=== PATIENT | male | born 1965 | race Caucasian/White ===

== ENCOUNTER 2020-09-09 16:59 | Inpatient (IN) | payer OTHER, SELFPAY ==
[2020-09-09] VITALS (22 sets, daily range): BP systolic 107–126; BP diastolic 63–78; PULSE 69–91; RESP 17–41; TEMP 36.8–37.8; O2SAT 74–97; BMI 25.7
--- NOTE | 2020-09-09 18:03 | ECG_ITS ---
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 Measurements Intervals [place] Rate: 81 P: 34 SD: 154 QRS: -7 QRSD: 105 T: 22 QT: 367 QTc: 428 Interpretive Statements SINUS RHYTHM No previous ECG available for comparison Electronically Signed On 09-09-2020 18:22:52 DUPLICATE MAKER by Mane Mark M.D. [id number]
--- NOTE | 2020-09-09 18:03 | XRR_ITS ---
PROCEDURE INFORMATION: Exam: XR Chest, 1 View Exam date and time: 09/09/2020 6:38 PM Age: 54 years old Clinical indication: Cough; Additional info: Shortness of breath TECHNIQUE: Imaging protocol: XR of the chest Views: 1 view. COMPARISON: No relevant prior studies available. FINDINGS: Lungs: Mild nonspecific bilateral infiltrates. Pleural space: No pleural effusion. No pneumothorax. Heart/Mediastinum: No cardiomegaly. Bones/joints: Mild degenerative spine changes. XR/XR chest 1V portable [id number] IMPRESSION: Mild nonspecific bilateral infiltrates. Consider nonspecific pneumonia.
--- NOTE | 2020-09-09 18:03 | CTR_ITS ---
PROCEDURE INFORMATION: Exam: CT Angiography Chest With Contrast Exam date and time: 09/09/2020 7:05 PM Age: 54 years old Clinical indication: Dyspnea; Chest pain; Type not specified; Additional info: Pleuritic chest pain with SOB post covid TECHNIQUE: Imaging protocol: Computed tomographic angiography of the chest with intravenous contrast. 3D rendering (Not supervised by radiologist): MIP and/or 3D reconstructed images were created by the technologist. Radiation optimization: All CT scans at this facility use at least one of these dose optimization techniques: automated exposure control; mA and/or kV adjustment per patient size (includes targeted exams where dose is matched to clinical indication); or iterative reconstruction. Contrast material: OMNI 350; Contrast volume: 95 ml; Contrast route: INTRAVENOUS (IV); COMPARISON: CR XR chest 1V portable [id number] 09/09/2020 6:26 PM RADIATION DOSE METRICS: Total DLP (mGy-cm): 615.51 FINDINGS: Limitations: The study is limited due to patient respiratory motion. Pulmonary arteries: Pulmonary arteries are well opacified. Pulmonary arteries are normal in caliber. No filling defects are demonstrated. No evidence of pulmonary embolism. Aorta: Mild atherosclerosis of the aorta. No aortic aneurysm or dissection. Lungs: Diffuse bilateral ground-glass infiltrates. Areas of consolidation are seen in the posterior portions of the lower lobes. Pleural space: No pneumothorax. No pleural effusion. Heart: Mild cardiomegaly. No pericardial effusion. Lymph nodes: Unremarkable. No enlarged lymph nodes. Bones/joints: Mild degenerative thoracic spine changes. No fracture or other acute osseous abnormality. Mild degenerative spine changes. There is a 1.2 x 2.8 cm fat density right adrenal nodule, consistent with benign myelolipoma. The left adrenal gland is unremarkable. Soft tissues: Mild gynecomastia bilaterally. CT/CT angio chest PE protcl [id number] IMPRESSION: 1. The study is limited due to patient respiratory motion. 2. No evidence of pulmonary embolism. 3. No evidence of aortic dissection. 4. Diffuse bilateral ground-glass infiltrates. Areas of consolidation are seen in the posterior portions of the lower lobes. Commonly reported imaging features of COVID-19 pneumonia are present. Other processes such as influenza pneumonia and organizing pneumonia, as can be seen with drug toxicity and connective tissue disease, can cause a similar imaging pattern. (Reference: [place]) 5. Mild degenerative spine changes. There is a 1.2 x 2.8 cm fat density right adrenal nodule, consistent with benign myelolipoma. The left adrenal gland is unremarkable. REFERENCES: Burak Cordova, et al., Radiological Society of [place] Expert Consensus Statement on Reporting Chest CT Findings Related to COVID-19. Endorsed by the Society of Thoracic Radiology, the [place] [employer], and RSNA. Published December 02, 2019. Radiation Dose CTDIVOL = (mGy): DLP = 615.51 (mGy-cm)
[2020-09-09 18:38] LABS: Basophils % 0.2 %; Eosinophils % 0.1 %; Hematocrit 45.5 % (42.0-52.0); Hemoglobin 15.8 g/dL (11.7-16.6); Lymphocytes # 0.5 10^3/uL (0.8-4.8); Lymphocytes % 4.6 %; Mean Corpuscular HGB Conc 34.7 g/dL (30.0-36.0); Mean Corpuscular Hemoglobin 34.6 pg (28.0-34.0); Mean Corpuscular Volume 99.8 fL (80-94); Mean Platelet Volume 9.6 fL (7.4-10.4); Monocytes # 1.1 10^3/uL (0.2-0.9); Monocytes % 9.9 %; Neutrophils # 9.56 10^3/uL (1.8-7.7); Neutrophils % 84.1 %; Nucleated Red Blood Cells % 0.2 %; Platelet Count 184 10^3/cmm (130-400); Red Blood Count 4.56 10^6/uL (4.1-5.3); White Blood Count 11.4 10^3/uL (4.0-10.0)
[2020-09-09] MEDS: sodium chloride 0.9% 1,000 ML 999 ML IV (18:42)
[2020-09-09 18:46] LABS: INR 0.97 (0.8-1.2)
--- NOTE | 2020-09-09 18:47 | W.ED.SOB ---
HPI - SOB/Dyspnea General: Chief Complaint: Shortness of Breath/Dyspnea Stated Complaint: low o2/chest tightness Time Seen by Provider: 09/09/20 17:42 Source: patient and family Mode of arrival: ambulatory Limitations: no limitations History of Present Illness: HPI Narrative: 54-year-old male presents to the emergency room chief complaint of recent shortness of breath and dyspnea reports he just developed a fever recently reports that he has been out of quarantine for COVID-19 that he was diagnosed with on over 14 days ago. Patient was originally on steroids medications he never require any additional oxygen he reports moderate shortness of breath and mild chest discomfort recently. He reports no recent sick or ill contacts or any other associated symptoms. MD elicited complaint: shortness of breath and cough Context: recent illness Exacerbating factors: coughing Relieving factors: nothing Associated symptoms: Deny abdominal pain, chest pain, extremity pain, fever(s), nausea, palpitations or vomiting Related Data: Home oxygen amount: none Review of Systems General: Reports: 10 or more systems reviewed and unremarkable except in HPI and below Const: Reports: fatigue; Denies: fever(s), chills or malaise Eyes: Denies: change in vision or blurry vision Card: Denies: chest pain or palpitations Resp: Reports: dyspnea and non-productive cough; Denies: productive cough GI: Denies: abdominal pain, nausea or vomiting : Denies: flank pain Musc: Denies: extremity pain or extremity swelling Skin/Breast: Denies: rash or pruritus Neuro: Denies: headache(s) Psych: Denies: anxiety or depression Gerson/Lymph: Denies: easy bleeding All/Imm: Denies: urticaria, throat swelling or facial swelling Physical Exam Narrative: EXAM NARRATIVE: Patient appears mildly tachypneic however appears in no obvious acute distress. Patient does have a low-grade fever temperature of 100 ?F oxygen saturations currently 88% on nasal cannula at 5 L Const: COMMON NORMALS: patient oriented x3 and healthy appearing; apparent distress HENMT: COMMON NORMALS: normocephalic and atraumatic HEAD & SCALP: normocephalic and atraumatic Eye: COMMON NORMALS: Equal, round and reactive pupils present and EOMs intact bilaterally PUPIL: Yes Equal, round and reactive pupils present Neck/C-Spine: COMMON NORMALS: full ROM, supple and no JVD Lymph: LYMPHATIC: no lymphadenopathy noted Chest: COMMONS NORMALS: normal inspection of the chest and normal palpation of entire chest wall Resp: COMMON NORMALS: normal respiratory effort, No retractions and clear to auscultation bilaterally (Reduced breath sounds appreciated bilaterally no obvious wheeze apparent) EFFORT & INSPECTION: Yes able to speak in complete sentences, Yes symmetric chest movement and Yes decreased respiratory effort AUSCULTATION: clear to auscultation bilaterally (Reduced breath sounds appreciated bilaterally no obvious wheeze apparent) and diminished lung sounds (Diminished breath sounds appreciated bilaterally no obvious wheezing crackl) Cardio: COMMON NORMALS: no JVD, regular rate and regular rhythm RATE: regular rate RHYTHM: regular rhythm GI: COMMON NORMALS: Normal to inspection, nondistended, normoactive bowel sounds present, Soft to palpation and non-tender INSPECTION: Yes normal to inspection AUSCULTATION: Yes normoactive bowel sounds PALPATION: Yes Soft to palpation : COMMON NORMALS: Yes no CVA tenderness BLADDER/KIDNEY EXAM: Yes no CVA tenderness Back/Pelvis: COMMON NORMALS: no CVA tenderness THORACIC SPINE/UPPER BACK: Yes normal to inspection Extremity: COMMON NORMALS: normal to inspection, full ROM and capillary refill normal Neuro: COMMON NORMALS: patient oriented x3, CN's II-XII intact bilaterally, moves all extremities and no focal motor deficits Psych: COMMON NORMALS: mental status grossly normal, Normal thought process present, cooperative, normal affect and speech normal SPEECH: Yes normal speech THOUGHT PROCESS: Normal thought process present Skin: COMMON NORMALS: no rashes or lesions noted GENERAL SKIN EXAM: no rashes or lesions noted Course Vital Signs: Vital signs: Vital Signs Temperature 100.0 F H 09/09/20 17:13 Pulse Rate 88 09/09/20 20:33 Respiratory Rate 31 H 09/09/20 20:33 Blood Pressure 116/77 09/09/20 20:33 Pulse Oximetry 95 09/09/20 20:33 MDM - SOB/Dyspnea MDM Narrative: Medical decision making narrative: Due to the patient's symptoms and condition lab work and imaging was obtained patient has hypoxic requiring 5 L via nasal cannula underlying concerns of post Covid pneumonia versus pulmonary embolism are prominent we provide the patient steroids and additional medications for her symptoms will continue to follow. Patient CTA came back as negative for any obvious underlying clots patient was found to have bibasilar infiltrates which revealing that the patient still has continued Covid pneumonia midway through management patient did have a significant O2 saturation depreciation after coughing episode spoke to Dr. morrison on for the hospitalist services granted acceptance of the patient. Lab Data: Labs: Lab Results 09/09/20 09/09/20 09/09/20 Range/Units 18:10 18:10 18:10 WBC 11.4 H (4.0-10.0) 10^3/ uL RBC 4.56 (4.1-5.3) 10^6/u L Hgb 15.8 (11.7-16.6) g/dL Hct 45.5 (42.0-52.0) % MCV 99.8 H (80-94) fL MCH 34.6 H (28.0-34.0) pg MCHC 34.7 (30.0-36.0) g/dL RDW 12.0 L (12.1-15.1) % Plt Count 184 (130-400) 10^3/c mm MPV 9.6 (7.4-10.4) fL Neut % (Auto) 84.1 % Lymph % (Auto) 4.6 % Anson % (Auto) 9.9 % Eos % (Auto) 0.1 % Baso % (Auto) 0.2 % Neut # (Auto) 9.56 H (1.8-7.7) 10^3/u L Lymph # (Auto) 0.5 L (0.8-4.8) 10^3/u L Anson # (Auto) 1.1 H (0.2-0.9) 10^3/u L Eos # (Auto) 0.0 (0.0-0.8) 10^3/u L Baso # (Auto) 0.0 (0.0-0.1) 10^3/u L Nucleated RBC % (a uto) 0.2 % Nucleated RBCs # 0.0 /100WBC PT 13.20 (12.1-14.9) SECO NDS INR 0.97 (0.8-1.2) Specimen Type Sample Site ABG pH (7.35-7.45) ABG pCO2 (35-45) mmHg ABG pO2 (80.0-100.0) mmH g ABG HCO3 (22-26) mmol/L ABG Base Excess (-2.0-2.0) mmol/ L Nacho Test Hematocrit (42-52) % O2 Delivery Device O2 Liters/Min % Senior C Software Developer ID Sodium 124 L (136-145) mmol/L Potassium 3.7 (3.5-5.1) mmol/L Chloride 89 L (98-107) mmol/L Carbon Dioxide 24 (22-29) mmol/L Anion Gap 14.7 (5-19) BUN 6 (6-20) mg/dL Creatinine 0.5 L (0.7-1.2) mg/dL GFR Calculation 173.3 H (90-130) mL/min Glucose 128 H (65-115) mg/dL Calculated Osmolal ity 257 L (285-295) mOsm/k g Calcium 8.3 L (8.5-10.5) mg/dL Total Bilirubin 0.6 (0.15-1.2) mg/dL AST 35 (0-40) U/L ALT 33 (0-41) U/L Alkaline Phosphata se 112 (40-130) IU/L Troponin T Gen 5 n g/L (0-15) ng/L NT-Pro-B Natriuret Pep 43 (0-125) pg/mL Total Protein 6.3 L (6.6-8.7) g/dL Albumin 3.1 L (3.5-5.2) g/dL Globulin 3.2 (1.3-4.6) g/dL 09/09/20 09/09/20 Range/Units 18:10 19:36 WBC (4.0-10.0) 10^3/ uL RBC (4.1-5.3) 10^6/u L Hgb (11.7-16.6) g/dL Hct (42.0-52.0) % MCV (80-94) fL MCH (28.0-34.0) pg MCHC (30.0-36.0) g/dL RDW (12.1-15.1) % Plt Count (130-400) 10^3/c mm MPV (7.4-10.4) fL Neut % (Auto) % Lymph % (Auto) % Anson % (Auto) % Eos % (Auto) % Baso % (Auto) % Neut # (Auto) (1.8-7.7) 10^3/u L Lymph # (Auto) (0.8-4.8) 10^3/u L Anson # (Auto) (0.2-0.9) 10^3/u L Eos # (Auto) (0.0-0.8) 10^3/u L Baso # (Auto) (0.0-0.1) 10^3/u L Nucleated RBC % (a uto) % Nucleated RBCs # /100WBC PT (12.1-14.9) SECO NDS INR (0.8-1.2) Specimen Type Arterial Sample Site Radial, right ABG pH 7.48 H (7.35-7.45) ABG pCO2 31.4 L (35-45) mmHg ABG pO2 51.7 L (80.0-100.0) mmH g ABG HCO3 23.6 (22-26) mmol/L ABG Base Excess 1.0 (-2.0-2.0) mmol/ L Nacho Test Pos Hematocrit 47.0 (42-52) % O2 Delivery Device Nrb O2 Liters/Min 15.0 % Senior C Software Developer ID Jlg Sodium (136-145) mmol/L Potassium (3.5-5.1) mmol/L Chloride (98-107) mmol/L Carbon Dioxide (22-29) mmol/L Anion Gap (5-19) BUN (6-20) mg/dL Creatinine (0.7-1.2) mg/dL GFR Calculation (90-130) mL/min Glucose (65-115) mg/dL Calculated Osmolal ity (285-295) mOsm/k g Calcium (8.5-10.5) mg/dL Total Bilirubin (0.15-1.2) mg/dL AST (0-40) U/L ALT (0-41) U/L Alkaline Phosphata se (40-130) IU/L Troponin T Gen 5 n g/L 6 (0-15) ng/L NT-Pro-B Natriuret Pep (0-125) pg/mL Total Protein (6.6-8.7) g/dL Albumin (3.5-5.2) g/dL Globulin (1.3-4.6) g/dL EKG Data^: EKG 1: Attestation: I personally reviewed and interpreted this EKG as follows: (Normal sinus rhythm rate of [address] segment elevations or depressions appreciated.) EKG Interpretation Date: 09/09/20 EKG interpretation time: 18:51 Prior EKG tracings: not available for review Discharge Plan Discharge Patient Disposition: Admitted As Inpatient Clinical Impression: 2019 novel coronavirus–infected pneumonia (NCIP)#8211;infected pneumonia (NCIP), Acute respiratory failure with hypoxia Condition: Stable Referrals: Zavala,SHERRON Bradley [Primary Care Provider] - Coding Level of Care Code ED Surface Water Technician for Chg Fwd Exam Comprehensive
[2020-09-09 19:16] LABS: Troponin T (5th) Once 6 ng/L (0-15)
[2020-09-09 19:24] LABS: Alanine Aminotransferase 33 U/L (0-41); Albumin Level 3.1 g/dL (3.5-5.2); Alkaline Phosphatase 112 IU/L (40-130); Anion Gap 14.7 (5-19); Aspartate Amino Transferase 35 U/L (0-40); Blood Urea Nitrogen 6 mg/dL (6-20); Calcium 8.3 mg/dL (8.5-10.5); Carbon Dioxide 24 mmol/L (22-29); Chloride 89 mmol/L (98-107); Globulin 3.2 g/dL (1.3-4.6); Glomerular Filtration Rate 173.3 mL/min (90-130); Glucose 128 mg/dL (65-115); NT Pro B Type Natriuretic Pept 43 pg/mL (0-125); Osmolality Calculated 257 mOsm/kg (285-295); Potassium 3.7 mmol/L (3.5-5.1); Sodium 124 mmol/L (136-145); Total Bilirubin 0.6 mg/dL (0.15-1.2); Total Protein 6.3 g/dL (6.6-8.7)
[2020-09-09] MEDS: iohexol 350 mg/mL 100 mL Btl IV (19:26)
[2020-09-09] MEDS: ipratropium-albuterol 3 mL Neb INHALATION (19:30)
[2020-09-09 19:49] LABS: ABG PCO2 31.4 mmHg (35-45); ABG PH Result 7.48 (7.35-7.45); Blood Gas Allen Test Pos; Blood Gas Sample Site Radial, right; Blood Gas Sample Type Arterial; HCO3 ABG 23.6 mmol/L (22-26); Oxygen Device NRB; PO2 ABG 51.7 mmHg (80.0-100.0)
--- NOTE | 2020-09-09 20:41 | PM.HP ---
Providers/Chief Complaint Primary Care Provider: Mirna Zavala APN Chief Complaint: low o2/chest tightness History of Present Illness Juan Carlos Ponce is a 54 year old male who does not have significant past medical history presented today with chief complaint of worsening shortness of breath. Patient contracted COVID-19 pneumonia on 08/20, was treated with steroids only at home, his symptoms started getting worse in last few days, now he is getting more short of breath, his O2 saturation was normal 2 weeks ago and now below 90% at home, he has not required any oxygenation until today, he is also experiencing diarrhea 3-4 episodes a day, no active chest pain, he is bringing clear sputum with his cough, no orthopnea, PND, leg swelling. His PCP prescribed Levaquin, he has taken 3 doses so far. His symptoms were not improving hence he decided to come to the ED for further evaluation. There is gradual worsening of his symptoms no particular relieving or aggravating factors identified by the patient. He is a non-smoker. He drinks 10 to 12 cans of beer almost daily basis Diagnosis in the ER revealed sepsis I have requested procalcitonin level and D-dimer CTA was requested which came back negative for PE however showing groundglass opacities Patient is currently requiring 15 L nonrebreather mask saturating 95% No acute respiratory distress Sepsis, ABG reveals respiratory alkalosis with hypoxia on 15 L nonrebreather, I have requested transfer therapist to start high flow BMP remarkable for hyponatremia however no neurological signs I reviewed chest CT scan, bilateral interstitial infiltrates, reticular nodular pattern Review of Systems Const: Reports: fever(s), chills, body aches, change in appetite, fatigue and malaise Eyes: Denies: change in vision ENMT: Denies: throat pain Card: Reports: dyspnea on exertion; Denies: chest pain, irregular heart rhythm, swelling of feet/ankles, syncope or leg pain with exertion Resp: Reports: dyspnea and productive cough GI: Reports: diarrhea : Denies: flank pain Musc: Denies: neck pain Skin/Breast: Denies: rash Neuro: Denies: headache(s) Psych: Denies: anxiety Endo: Denies: polyuria Gerson/Lymph: Denies: easy bruising All/Imm: Denies: urticaria Medications/Allergies Home Medications Medication Instructions Recorded Confirmed Last Taken Type lisinopril 20 mg PO DAILY 09/09/20 09/09/20 Unknown History metoprolol succinate 50 mg PO DAILY 09/09/20 09/09/20 Unknown History PFSH Acute PFSH: Medical History (Updated 09/09/20 @ 21:30 by Best Zamarripa MD) Hypertension Normal colonoscopy Surgical History (Updated 09/09/20 @ 21:23 by Best Zamarripa MD) History of incision and drainage Gluteal abscess Family History (Updated 09/09/20 @ 21:23 by Best Zamarripa MD) Father Cancer Multiple myeloma Social History (Updated 09/09/20 @ 21:23 by Best Zamarripa MD) Smoking and tobacco status: never smoked Alcohol intake: current Alcohol intake frequency: 3 or more drinks per day Alcohol type: beer Substance/Drug Use: never Household members: spouse Housing: House Marital status: Vitals/I&O/Wt Last Vital Signs Temp 100.0 F H 09/09/20 17:13 Pulse 88 09/09/20 20:33 Resp 31 H 09/09/20 20:33 BP 116/77 09/09/20 20:33 Pulse Ox 95 09/09/20 20:33 Weight last 48 hrs Weight 83.915 kg Physical Exam Narrative: EXAM NARRATIVE: This is a very pleasant middle-age male Currently requiring 15 L nonrebreather mask for oxygenation to keep saturation above 94% No acute respiratory distress No active chest pain Sitting comfortably in semi-Fermin position S1, S2 no murmur appreciated no signs of heart failure, mild signs of dehydration Bilateral breath sounds with biphasic crepitations, no active wheezing Lower extremity no edema gangrene ulcer Multiple petechial rash noted on extremities and on abdomen, no rash on his palms No signs of meningitis no skin rash on face Abdomen soft nontender bowel sound present no acute signs of peritonitis No neurological deficit GCS 15 alert oriented x3 No active joint pains or swelling Data : 09/09/20 18:10 09/09/20 18:10 A&P Assessment and plan (1) 2019 novel coronavirus–infected pneumonia (NCIP)#8211;infected pneumonia (NCIP): Status: Acute (2) Sepsis: Status: Acute (3) Acute respiratory failure with hypoxia: Status: Acute (4) Hyponatremia: Status: Acute Additional A&P Information Sepsis secondary to COVID-19 pneumonia Criteria met with low-grade temperature, tachypnea, leukocytosis I have requested procalcitonin level, will hold off on antibiotics until then, he has taken 2 dose of Levaquin at home We will start him on Decadron and remdesivir Ventolin Currently requiring 15 L nonrebreather mask will escalate to humidified high flow Acute hypoxic respiratory failure Currently requiring 15 L nonrebreather mask Bilateral groundglass opacities with reticular nodular pattern This is consistent with COVID-19 pneumonia, no dense consolidation seen, awaiting procalcitonin level, CTA rule out PE Diarrhea Most likely secondary to COVID-19 however he has also taken Levaquin, will rule out C. difficile, he had more than 3 episodes today Hyponatremia No acute neurological signs or symptoms Will obtain serum and urine osmolarity, uric acid, TSH Clinically patient looks mildly dehydrated, he has been having diarrhea as well, but not showing signs of contraction alkalosis however sodium and potassium are both low I would add normal saline at 75 cc/h Full code Cardiac diet DVT prophylaxis Lovenox Attestations Medical Necessity Statement*: Anticipating stay in the hospital course more than 2 midnights currently requiring 15 L of oxygen via nonrebreather mask, septic with COVID-19 pneumonia Time Spent in Patient Care: (>than 50% of time spent in counselling and/or direct pt care on unit). 45mins Coding Level of Care Code Acute Network Operations Manager for [employer] Davalos Diagnoses 2019 novel coronavirus–infected pneumonia (NCIP)#8211;infected pneumonia (NCIP) U07.1; J12.89 Sepsis A41.9 Acute respiratory failure with hypoxia J96.01 Hyponatremia E87.1
[2020-09-09 21:55] LABS: Procalcitonin 0.24 ng/mL (0-0.5)
[2020-09-09 22:08] LABS: D Dimer 3.78 ug/mIFEU (0-0.59)
[2020-09-09 22:11] LABS: Uric Acid 3.1 mg/dL (3.4-7.0)
[2020-09-09 22:20] LABS: Thyroid Stimulating Hormone 4.42 uIU/mL (0.27-4.20)
--- NOTE | 2020-09-09 22:30 | PC.NURSE ---
Patient arrived to room via stretcher from ED. A&O X 4 Respiratory with patient to set up heated high flow. No skin issues noted and patient has Patent IV site to R Forearm with brisk blood return. Lungs diminished all jack. Patient able to ambulate in room with minimal desaturation. first dose of remdesivir administered. Will continue to monitor and assist patient as needed following CPOC
[2020-09-10] VITALS (36 sets, daily range): BP systolic 95–128; BP diastolic 59–81; PULSE 61–93; RESP 16–34; TEMP 36.5–37; O2SAT 88–97
[2020-09-10] MEDS: remdesivir 200 MG in sodium chloride 0.9% (100 ml) 100 ML 100 MG IV (02:09)
[2020-09-10] MEDS: acetaminophen 500 mg Tablet PO (02:12)
[2020-09-10 04:21] LABS: ABG PH Result 7.49 (7.35-7.45); Arterial Blood Gas Hematocrit 47.8 % (42-52); Base Excess ABG 0.6 mmol/L (-2.0-2.0); Blood Gas Allen Test Pos; Blood Gas Sample Site Radial, right; Blood Gas Sample Type Arterial; HCO3 ABG 22.9 mmol/L (22-26); Oxygen Device NC; PO2 ABG 89.4 mmHg (80.0-100.0)
[2020-09-10 06:55] LABS: Basophils % 0.4 %; Hematocrit 43.7 % (42.0-52.0); Lymphocytes # 0.4 10^3/uL (0.8-4.8); Lymphocytes % 6.6 %; Mean Corpuscular HGB Conc 34.3 g/dL (30.0-36.0); Mean Corpuscular Hemoglobin 34.8 pg (28.0-34.0); Mean Corpuscular Volume 101.4 fL (80-94); Mean Platelet Volume 9.9 fL (7.4-10.4); Monocytes # 0.2 10^3/uL (0.2-0.9); Monocytes % 4.3 %; Neutrophils % 87.8 %; Nucleated Red Blood Cells % 0 %; Platelet Count 190 10^3/cmm (130-400); Red Blood Count 4.31 10^6/uL (4.1-5.3); Red Cell Distribution Width 11.9 % (12.1-15.1); White Blood Count 5.6 10^3/uL (4.0-10.0)
[2020-09-10 07:07] LABS: Fibrinogen 857 mg/dL (174-498)
[2020-09-10 07:08] LABS: Blood Urea Nitrogen 7 mg/dL (6-20); Calcium 8.1 mg/dL (8.5-10.5); Carbon Dioxide 22 mmol/L (22-29); Chloride 92 mmol/L (98-107); Glomerular Filtration Rate 224.2 mL/min (90-130); Glucose 205 mg/dL (65-115); Osmolality Calculated 266 mOsm/kg (285-295); Sodium 126 mmol/L (136-145)
[2020-09-10 07:26] LABS: Anion Gap 15.8 (5-19); Potassium 3.8 mmol/L (3.5-5.1)
--- NOTE | 2020-09-10 07:47 | PC.NURSE ---
Report called to RN on VICU to transfer patient this am. Patient in stable condition with oxymask and 15 L Patient left room with floor staff via wheelchair to VICU room 2
--- NOTE | 2020-09-10 09:09 | XRR_ITS ---
PROCEDURE INFORMATION: Exam: XR Chest, 1 View Exam date and time: 09/10/2020 9:35 AM Age: 54 years old Clinical indication: Shortness of breath; Additional info: Post intubation TECHNIQUE: Imaging protocol: XR of the chest Views: 1 view. COMPARISON: CR XR chest 1V portable [id number] 09/09/2020 6:26 PM FINDINGS: Lungs: Bilateral hazy interstitial infiltrates are present which have not significantly changed since previous study. This could be due to a interstitial pneumonia possibly viral in nature. Pleural space: Unremarkable. No pleural effusion. No pneumothorax. Heart/Mediastinum: Unremarkable. No cardiomegaly. Bones/joints: Unremarkable. XR/XR chest 1V portable [id number] IMPRESSION: No significant change in the bilateral interstitial pulmonary infiltrates.
[2020-09-10] MEDS: azithromycin 500 MG in sodium chloride 0.9% 250 ML 250 MG IV (10:00)
[2020-09-10] MEDS: cefTRIAXone 1,000 MG in sodium chloride 0.9% (plus) 50 ML 100 MG IV (10:01)
[2020-09-10] MEDS: apixaban 5 mg Tablet 2.5 MG PO ×2 (10:26→18:05)
[2020-09-10] MEDS: folic acid 1 mg Tablet PO (10:26)
[2020-09-10] MEDS: multivitamin therapeutic Tablet 1 TAB PO (10:26)
[2020-09-10] MEDS: lisinopril 20 mg Tablet PO (10:26)
[2020-09-10] MEDS: metoprolol succinate ER (24 HR) 50 mg Tablet PO (10:26)
[2020-09-10] MEDS: dexamethasone 4 mg Tablet 6 MG PO (10:27)
[2020-09-10] MEDS: remdesivir 100 MG in sodium chloride 0.9% (100 ml) 100 ML IV (18:05)
--- NOTE | 2020-09-10 19:00 | PC.NURSE ---
Report received, care assumed. Monitor alarms, plan of care et previous orders reviewed. Please see physical assessment et vital sign flow sheets for details. Patient currently resting in bed comfortably. Patient is alert et able to participate in exam et answer all orientation questions without any issues.
--- NOTE | 2020-09-10 21:26 | PM.PN ---
Subjective Subjective: Interval history: 54 year old male who does not have significant past medical history presented today with chief complaint of worsening shortness of breath. Patient contracted COVID-19 pneumonia on 08/20, was treated with steroids only at home, his symptoms started getting worse in last few days, now he is getting more short of breath, his O2 saturation was normal 2 weeks ago and now below 90% at home, he has not required any oxygenation until today, he is also experiencing diarrhea 3-4 episodes a day, no active chest pain, he is bringing clear sputum with his cough, no orthopnea, PND, leg swelling. His PCP prescribed Levaquin, he has taken 3 doses so far. His symptoms were not improving hence he decided to come to the ED for further evaluation. There is gradual worsening of his symptoms no particular relieving or aggravating factors identified by the patient. He is a non-smoker. He drinks 10 to 12 cans of beer almost daily basis CTA was requested which came back negative for PE however showing groundglass opacities Patient was initially requiring 15 L nonrebreather mask saturating 95% however later transitioned to HFNC. Transferred to VICU. Subjective 09/10/20 Patient is stable on HFNC. Respiratory distress with exertion. No fever, chills, nausea or vomiting. Vitals/I&O/Wt Last Vital Signs Temp 97.8 F 09/10/20 15:00 Pulse 93 09/10/20 19:00 Resp 25 H 09/10/20 19:00 BP 114/74 09/10/20 19:00 Pulse Ox 96 09/10/20 19:00 09/10/20 09/10/20 09/10/20 06:59 14:59 22:59 Intake Total 480 / 480 600 / 600 300 / 900 Balance 480 / 480 600 / 600 300 / 900 Weight last 48 hrs Weight 83.915 kg Physical Exam Narrative: EXAM NARRATIVE: General : Alert, awake, HFNC HEENT : S1, S2 no murmur appreciated no signs of heart failure, mild signs of dehydration Chest : Bilateral breath sounds with biphasic crepitations, no active wheezing Abdomen soft nontender bowel sound present no acute signs of peritonitis No neurological deficit GCS 15 alert oriented x3 No active joint pains or swelling Data : 09/10/20 05:35 09/10/20 05:35 Micro: Microbiology 09/09/20 20:59 Blood Culture - Preliminary Blood NEGATIVE TO DATE 09/09/20 21:00 Blood Culture - Preliminary Blood NEGATIVE TO DATE A&P Assessment and plan (1) 2019 novel coronavirus–infected pneumonia (NCIP)#8211;infected pneumonia (NCIP): Status: Acute (2) Sepsis: Status: Acute (3) Acute respiratory failure with hypoxia: Status: Acute (4) Hyponatremia: Status: Acute Additional A&P Information Acute hypoxic respiratory failure with Sepsis secondary to COVID-19 pneumonia - Remdesivir - Decadron - Inflammatory labs in AM - Albuterol MDI - Wean Fio2 - Chest x-ray Diarrhea - Improving - Follow up on c-diff Hyponatremia - BMP in AM - Cautious IVF Full code Cardiac diet DVT prophylaxis Lovenox Attestations Medical Necessity Statement*: Will continue hospitalization for management of sepsis due to covid-19 pneumonia Time Spent in Patient Care: Greater than 35 minutes (>than 50% of time spent in counselling and/or direct pt care on unit). 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
[2020-09-10] MEDS: LORazepam 2 mg Tablet PO (21:38)
[2020-09-11] VITALS (36 sets, daily range): BP systolic 82–131; BP diastolic 53–87; PULSE 45–99; RESP 13–49; TEMP 36.6–36.9; O2SAT 78–96
[2020-09-11] MEDS: LORazepam 2 mg Tablet PO ×2 (00:28→04:32)
[2020-09-11] MEDS: LORazepam 2 mg/mL INJ 1 mL IM (02:17)
--- NOTE | 2020-09-11 02:32 | PC.NURSE ---
Patient having increased symptoms of alcohol withdrawal such as muscle tremors, sweating, et both auditory et visual hallucinations. Called Dr. Zamarripa to to update on patient's worsening symptoms. New orders noted et implemented. Will continue to monitor.
[2020-09-11] MEDS: LORazepam 2 mg/mL INJ 1 mL IVP ×2 (04:33→07:38)
[2020-09-11 05:14] LABS: Basophils % 0.3 %; Hematocrit 41.8 % (42.0-52.0); Hemoglobin 14.1 g/dL (11.7-16.6); Lymphocytes # 0.8 10^3/uL (0.8-4.8); Lymphocytes % 4.8 %; Mean Corpuscular HGB Conc 33.7 g/dL (30.0-36.0); Mean Corpuscular Hemoglobin 34.9 pg (28.0-34.0); Mean Corpuscular Volume 103.5 fL (80-94); Mean Platelet Volume 9.3 fL (7.4-10.4); Monocytes # 1.4 10^3/uL (0.2-0.9); Monocytes % 8.9 %; Neutrophils # 13.41 10^3/uL (1.8-7.7); Neutrophils % 85.2 %; Nucleated Red Blood Cells % 0 %; Platelet Count 205 10^3/cmm (130-400); Red Blood Count 4.04 10^6/uL (4.1-5.3); Red Cell Distribution Width 11.9 % (12.1-15.1); White Blood Count 15.7 10^3/uL (4.0-10.0)
[2020-09-11 05:33] LABS: Lactate (Lactic Acid level) 1.7 mmol/L (0.5-2.2)
[2020-09-11 05:54] LABS: Procalcitonin 0.13 ng/mL (0-0.5)
[2020-09-11 06:02] LABS: D Dimer 2.43 ug/mIFEU (0-0.59)
[2020-09-11 06:05] LABS: Alanine Aminotransferase 52 U/L (0-41); Albumin Level 2.7 g/dL (3.5-5.2); Alkaline Phosphatase 83 IU/L (40-130); Blood Urea Nitrogen 12 mg/dL (6-20); Calcium 8.4 mg/dL (8.5-10.5); Carbon Dioxide 24 mmol/L (22-29); Chloride 94 mmol/L (98-107); Globulin 3.6 g/dL (1.3-4.6); Glomerular Filtration Rate 173.3 mL/min (90-130); Glucose 112 mg/dL (65-115); Osmolality Calculated 271 mOsm/kg (285-295); Sodium 130 mmol/L (136-145); Total Bilirubin 0.5 mg/dL (0.15-1.2); Total Protein 6.3 g/dL (6.6-8.7)
[2020-09-11 06:11] LABS: Anion Gap 16.1 (5-19); Aspartate Amino Transferase 59 U/L (0-40); Potassium 4.1 mmol/L (3.5-5.1)
[2020-09-11 06:28] LABS: Ferritin 4788 ng/mL (30-400)
[2020-09-11] MEDS: cefTRIAXone 1,000 MG in sodium chloride 0.9% (plus) 50 ML 100 MG IV (09:45)
[2020-09-11] MEDS: azithromycin 500 MG in sodium chloride 0.9% 250 ML 250 MG IV (09:46)
[2020-09-11] MEDS: dexamethasone 4 mg Tablet 6 MG PO (09:49)
[2020-09-11] MEDS: folic acid 1 mg Tablet PO (10:11)
[2020-09-11] MEDS: apixaban 5 mg Tablet 2.5 MG PO ×2 (10:11→17:30)
[2020-09-11] MEDS: multivitamin therapeutic Tablet 1 TAB PO (10:12)
[2020-09-11] MEDS: thiamine 100 mg Tablet PO (10:13)
--- NOTE | 2020-09-11 11:18 | PM.PN ---
Subjective Subjective: Interval history: 54 year old male who does not have significant past medical history presented today with chief complaint of worsening shortness of breath. Patient contracted COVID-19 pneumonia on 08/20, was treated with steroids only at home, his symptoms started getting worse in last few days, now he is getting more short of breath, his O2 saturation was normal 2 weeks ago and now below 90% at home, he has not required any oxygenation until today, he is also experiencing diarrhea 3-4 episodes a day, no active chest pain, he is bringing clear sputum with his cough, no orthopnea, PND, leg swelling. His PCP prescribed Levaquin, he has taken 3 doses so far. His symptoms were not improving hence he decided to come to the ED for further evaluation. There is gradual worsening of his symptoms no particular relieving or aggravating factors identified by the patient. He is a non-smoker. He drinks 10 to 12 cans of beer almost daily basis CTA was requested which came back negative for PE however showing groundglass opacities Patient was initially requiring 15 L nonrebreather mask saturating 95% however later transitioned to HFNC. Transferred to VICU. Subjective 09/10/20 Patient is stable on HFNC. Respiratory distress with exertion. No fever, chills, nausea or vomiting. 09/11/20 Intubated on MV Vitals/I&O/Wt Last Vital Signs Temp 98 F 09/11/20 04:00 Pulse 61 09/11/20 20:06 Resp 20 H 09/11/20 20:06 BP 100/65 09/11/20 15:00 Pulse Ox 90 09/11/20 20:06 09/11/20 09/11/20 09/11/20 06:59 14:59 22:59 Intake Total 250 / 250 181.000 / 431.000 Balance 250 / 250 181.000 / 431.000 Physical Exam Narrative: EXAM NARRATIVE: General : Intubated on vent HEENT ; ET tube CVS: S1, S2 no murmur appreciated no signs of heart failure, mild signs of dehydration Chest : Bilateral breath sounds with biphasic crepitations, no active wheezing Abdomen soft nontender bowel sound present no acute signs of peritonitis Urinary Catheter Management^: Guerra: Cath Placed During This Visit: yes Reason for Continuing Indwelling Catheter: Accurate Measurement of Urinary Output in Critically Ill Patients Urinary Catheter Date of Insertion: 09/11/20 Urinary Catheter Time of Insertion: 12:40 Data : 09/11/20 05:00 09/11/20 05:00 Micro: Microbiology 09/11/20 12:17 Gram Stain - Final Sputum - Endotracheal Tube Aspirate 09/09/20 20:59 Blood Culture - Preliminary Blood NEGATIVE TO DATE 09/09/20 21:00 Blood Culture - Preliminary Blood NEGATIVE TO DATE A&P Assessment and plan (1) 2018 novel coronavirus–infected pneumonia (NCIP)#8211;infected pneumonia (NCIP): Status: Acute (2) Sepsis: Status: Acute (3) Acute respiratory failure with hypoxia: Status: Acute (4) Hyponatremia: Status: Acute Additional A&P Information Acute hypoxic respiratory failure with Sepsis secondary to COVID-19 pneumonia - Intubated on MV - ABG in am - Remdesivir - Decadron - Inflammatory labs in AM - Albuterol MDI - emperically on abx - Wean Fio2 - Chest x-ray Diarrhea - Improving - Follow up on c-diff Hyponatremia - BMP in AM - Cautious IVF Full code Cardiac diet DVT prophylaxis Lovenox Attestations Medical Necessity Statement*: critical condition continue hospitalization Time Spent in Patient Care: Greater than 35 minutes (>than 50% of time spent in counselling and/or direct pt care on unit). 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
--- NOTE | 2020-09-11 11:33 | XRR_ITS ---
PROCEDURE INFORMATION: Exam: XR Chest, 1 View Exam date and time: 09/11/2020 11:56 AM Age: 54 years old Clinical indication: Device placement; Ett placement (vent status); Additional info: Intubation TECHNIQUE: Imaging protocol: XR of the chest Views: 1 view. COMPARISON: CR (CHEST, ) 09/10/2020 9:19 AM FINDINGS: Tubes, catheters and devices: An endotracheal tube is present with its tip about 2.5 cm above the conor. An orogastric tube extends down to the projection of the stomach. Lungs: There are extensive bilateral interstitial pulmonary infiltrates that have worsened since 09/10/2020. This is consistent with an interstitial pneumonia probably viral in nature. Pleural space: Unremarkable. No pleural effusion. No pneumothorax. Heart/Mediastinum: Unremarkable. No cardiomegaly. Bones/joints: Unremarkable. XR/XR chest 1V portable [id number] IMPRESSION: 1. The tip of the endotracheal tube is about 2.5 cm above the conro. 2. The orogastric tube descends to the stomach. 3. Worsening bilateral interstitial pulmonary infiltrates.
[2020-09-11] MEDS: propofol 1,000 MG/100 ML INJ 17.6 MG IV (11:45)
[2020-09-11] MEDS: succinylcholine 20 mg/mL SDV 10mL 100 MG IVP (12:03)
[2020-09-11] MEDS: dexmedetomidine 400 MCG in sodium chloride 0.9% (100 ml) 100 ML IV (12:20)
--- NOTE | 2020-09-11 12:53 | PC.NURSE ---
Intubation Doctor informed this nurse of worsening symptoms and was told he was intubating patient. was informed and she gave verbal consent for procedure. Sedatives and paralytics were given per orders at 1130. 8.0 tube was used and tube is at 25 at the lip. Positive color change and bilateral breath sounds were noted. OG and Guerra were placed per orders. Patient tolerated well
--- NOTE | 2020-09-11 13:05 | P.PCN_ITS ---
Procedure/Consent Time out: Time Out Performed: Yes Consent: Consent for Procedure: Consent obtained from other (indicate) (Patients ), Risks & Benefits reviewed and Agrees to proceed with procedure Acute Procedures Epistaxis Control: Time out performed: Yes Intubation: Time out performed: Yes Sedative: etomidate Mg given: 20 Paralytic: succinylcholine Mg given: 100 Laryngoscope: fiber optic video scope Assist device used: fiber optic device ET tube size: 8 ET tube uncuffed: Yes Tube secured depth (cm): 25 Tube secured location: teeth Tube placement confirmation: visualized tube passing through cords, equal breath sounds bilaterally, no breath sounds over epigastrium, confirmation by capnometry and color change noted Patient tolerated procedure: well I ntubation complications: none
[2020-09-11 13:31] LABS: ABG PCO2 36.9 mmHg (35-45); ABG PH Result 7.44 (7.35-7.45); Alveolar-Arterial Oxygen Gradi 58.6 mmHg (5-10); Arterial Blood Gas Hematocrit 42.9 % (42-52); Base Excess ABG 0.8 mmol/L (-2.0-2.0); Blood Gas Allen Test Pos; Blood Gas Sample Site Radial, right; Blood Gas Sample Type Arterial; Carboxyhemoglobin 0.5 %THgb (0.4-20.1); HCO3 ABG 24.8 mmol/L (22-26); Ionized Calcium Level - ABG 1.2 mmol/L (1.1-1.4); Oxygen Device VENT; Oxygen Saturation ABG 94.4; PO2 ABG 72.2 mmHg (80.0-100.0); Potassium Level - ABG 3.8 mmol/L (3.5-5.0)
[2020-09-11] MEDS: remdesivir 100 MG in sodium chloride 0.9% (100 ml) 100 ML IV (17:30)
--- NOTE | 2020-09-11 18:45 | PC.NURSE ---
Received bedside report on patient from Sandi AVALOS. Assumed care at this time. Drip rates verified by both offgoing RN and myself. Fentanyl 75mcg/hr, Versed 2mg/hr. Stated they stopped the Propofol and Precedex drips but are left in room in case they are needed to be restarted.
--- NOTE | 2020-09-11 18:53 | PC.NURSE ---
Update Patients heart rate has been staying in the low 50's. Doctor notified. No new orders
[2020-09-11] MEDS: propofol 1,000 MG/100 ML INJ 1 MG IV (19:07)
--- NOTE | 2020-09-11 20:00 | PC.NURSE ---
Patient opened his eyes and was trying to sit up in bed. I restarted his propofol drip at 10 mcg/kg/min, Precedex at 0.4 mcg/kg/hr, Increased Versed to 4mg/hr, Fentanyl to 100mcg/hr. Respiratory at bedside and patient began to relax and respiratory rate returned back to normal.
--- NOTE | 2020-09-11 21:09 | PC.NURSE ---
Demetrice the patients called to check on her . She stated she would call back tomorrow to check on the results of his tests.
[2020-09-12] VITALS (32 sets, daily range): BP systolic 80–123; BP diastolic 51–75; PULSE 39–59; RESP 12–25; TEMP 36.5–36.6; O2SAT 89–95
[2020-09-12 04:01] LABS: ABG PCO2 43.7 mmHg (35-45); ABG PH Result 7.43 (7.35-7.45); Base Excess ABG 3.6 mmol/L (-2.0-2.0); Blood Gas Allen Test Pos; Blood Gas Sample Site Radial, right; Blood Gas Sample Type Arterial; HCO3 ABG 28.6 mmol/L (22-26); Oxygen Device VENT; PO2 ABG 67.8 mmHg (80.0-100.0)
[2020-09-12 05:44] LABS: Basophils % 0.1 %; Hematocrit 40.6 % (42.0-52.0); Hemoglobin 13.8 g/dL (11.7-16.6); Lymphocytes # 0.7 10^3/uL (0.8-4.8); Lymphocytes % 7.3 %; Mean Corpuscular Hemoglobin 35.1 pg (28.0-34.0); Mean Corpuscular Volume 103.3 fL (80-94); Mean Platelet Volume 9.9 fL (7.4-10.4); Monocytes # 0.9 10^3/uL (0.2-0.9); Monocytes % 8.8 %; Neutrophils # 8.24 10^3/uL (1.8-7.7); Neutrophils % 82.9 %; Nucleated Red Blood Cells % 0 %; Platelet Count 220 10^3/cmm (130-400); Red Blood Count 3.93 10^6/uL (4.1-5.3); White Blood Count 9.9 10^3/uL (4.0-10.0)
[2020-09-12 06:09] LABS: Alanine Aminotransferase 37 U/L (0-41); Albumin Level 2.5 g/dL (3.5-5.2); Alkaline Phosphatase 78 IU/L (40-130); Anion Gap 13.5 (5-19); Aspartate Amino Transferase 29 U/L (0-40); Blood Urea Nitrogen 14 mg/dL (6-20); Calcium 8.2 mg/dL (8.5-10.5); Carbon Dioxide 25 mmol/L (22-29); Chloride 98 mmol/L (98-107); D Dimer 2.19 ug/mIFEU (0-0.59); Globulin 3.3 g/dL (1.3-4.6); Glomerular Filtration Rate 224.2 mL/min (90-130); Glucose 110 mg/dL (65-115); Osmolality Calculated 275 mOsm/kg (285-295); Potassium 4.5 mmol/L (3.5-5.1); Sodium 132 mmol/L (136-145); Total Bilirubin 0.3 mg/dL (0.15-1.2); Total Protein 5.8 g/dL (6.6-8.7)
[2020-09-12 06:23] LABS: Ferritin 3323 ng/mL (30-400)
--- NOTE | 2020-09-12 07:00 | XR_ITS ---
WS: [id number] PORTABLE CHEST HISTORY: respiratory failure COMPARISON: 09/11/2020 Nasogastric and endotracheal tubes are in good position. Continued bilateral multilobar consolidations and opacifications. Most significant narrowing in the R IGHT upper lobe. Lung volumes are decreased. No pleural effusion or pneumothorax. Cardiac size: Normal. Mediastinum/Aorta: Normal mediastinum. No osseous abnormality seen. XR/XR chest 1V portable [id number] IMPRESSION: 1. Nasogastric and endotracheal tubes remain in good position. 2. Diffuse bilateral pulmonary opacifications without significant improvement.
[2020-09-12] MEDS: cefTRIAXone 1,000 MG in sodium chloride 0.9% (plus) 50 ML 100 MG IV (09:10)
[2020-09-12] MEDS: azithromycin 500 MG in sodium chloride 0.9% 250 ML 250 MG IV (09:14)
[2020-09-12] MEDS: apixaban 5 mg Tablet 2.5 MG PO ×2 (09:15→18:16)
[2020-09-12] MEDS: dexamethasone 4 mg Tablet 6 MG PO (09:17)
[2020-09-12] MEDS: multivitamin therapeutic Tablet 1 TAB PO (09:17)
[2020-09-12] MEDS: lisinopril 20 mg Tablet PO (09:18)
[2020-09-12] MEDS: folic acid 1 mg Tablet PO (09:19)
[2020-09-12] MEDS: thiamine 100 mg Tablet PO (09:19)
--- NOTE | 2020-09-12 13:07 | P.PN_ITS ---
Subjective Subjective: Interval history: 54 year old male who does not have significant past medical history presented today with chief complaint of worsening shortness of breath. Patient contracted COVID-19 pneumonia on 08/20, was treated with steroids only at home, his symptoms started getting worse in last few days, now he is getting more short of breath, his O2 saturation was normal 2 weeks ago and now below 90% at home, he has not required any oxygenation until today, he is also experiencing diarrhea 3-4 episodes a day, no active chest pain, he is bringing clear sputum with his cough, no orthopnea, PND, leg swelling. His PCP prescribed Levaquin, he has taken 3 doses so far. His symptoms were not improving hence he decided to come to the ED for further evaluation. There is gradual worsening of his symptoms no particular relieving or aggravating factors identified by the patient. He is a non-smoker. He drinks 10 to 12 cans of beer almost daily basis CTA was requested which came back negative for PE however showing groundglass opacities Patient was initially requiring 15 L nonrebreather mask saturating 95% however later transitioned to HFNC. Transferred to VICU. Subjective 09/10/20 Patient is stable on HFNC. Respiratory distress with exertion. No fever, chills, nausea or vomiting. 09/11/20 Intubated on MV 09/12/20 Patient unfortunately was very agitated in am on 09/11. Was non-cooperative with HFNC during which time he was noted to have desaturation. This was discussed with patients who gave consent for intubation. Patients Fio2 has to 65% today. Was noted to have bradycardia. Remained afebrile. Medications: Reviewed: Yes Vitals/I&O/Wt Last Vital Signs Temp 97.8 F 09/12/20 00:00 Pulse 50 L 09/12/20 10:40 Resp 14 09/12/20 10:40 BP 103/70 09/12/20 05:00 Pulse Ox 93 09/12/20 10:40 09/11/20 09/12/20 09/12/20 22:59 06:59 14:59 Intake Total 761.000 / 1061.000 122.322 / 1183.322 250.462 / 250.462 Output Total 2500 / 2502 Balance 759.000 / 1059.000 -2377.678 / -1318.678 250.462 / 250.462 Physical Exam Narrative: EXAM NARRATIVE: General : Intubated on vent HEENT ; ET tube CVS: Sinus tythym Chest : Vented, non-labored Abdomen: Non-tender Ext: No edema Urinary Catheter Management^: Guerra: Cath Placed During This Visit: yes Reason for Continuing Indwelling Catheter: Accurate Measurement of Urinary Output in Critically Ill Patients Urinary Catheter Date of Insertion: 09/11/20 Urinary Catheter Time of Insertion: 12:40 Data : 09/12/20 03:45 09/12/20 03:45 Micro: Microbiology 09/11/20 12:17 Gram Stain - Final Sputum - Endotracheal Tube Aspirate Sputum Culture - Preliminary A&P Assessment and plan (1) 2019 novel coronavirus–infected pneumonia (NCIP)#8211;infected pneumonia (NCIP): Status: Acute (2) Sepsis: Status: Acute (3) Acute respiratory failure with hypoxia: Status: Acute (4) Hyponatremia: Status: Acute Additional A&P Information Acute Hypoxic Respiratory failure - Likely due to COVID-19 pneumonia - Intubated on 09/12/20 - Vent settings - CMV, TV 500, PIP 17 ,Pplateau -20, itime 1.2 PEEP of 10, Min v entilation 7.4, Lung compliance 94, airway resistance of 7. - ABG - 7.43, PCO2 - 43.7, PO2 67.8 - P/F ratio -> 112 - Moderate ARDS - 09/12- Chest x-ray - > Diffuse bilateral pulmonary opacifications without significant improvement. - Will consult with pulmonary- king yi consider deep sedation and proaning today - Currently on Propofol/Fentanyl for sedation - Repeat ABG and chest x-ray in am - Will consult pulmonary medicine CoV-19 Pneumonia - Started on Remdesivir 5 days protocol - Decadron 6 mg IV daily - Ferritin 4788 -> 3323 - Pro-calcitonin 0.13 - Was started empirically on Rocephin 1 g daily - Azithromycin 500 mg IV daily - 09/09 - Blood culture x 2 - NGTD - 09/11 - Sputum culture - GS- Negative culture - pending - D -dimer -3.78- > 2.43 -> 2.19 On eliquis 2.5 mg PO BID - Qother day inflammatory marker trend Alcoholism with withdrawals - Currently sedation - PRN versed for seizure like activity Elevated LFTs - Etiology multi-factorial - AST 59 -> 29 - ALT 52 -> 37 Hx of Hypertension - Holding lisinopril/ metoprolol GI ppx - Pepcid 20 mg IV BID DVT ppx - Eliquis 2.5 mg PO BID Attestations Medical Necessity Statement*: Will require further hospitalization for managmenet of respiratory failure Time Spent in Patient Care: Greater than 35 minutes (>than 50% of time spent in counselling and/or direct pt care on unit) . 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
[2020-09-12 15:03] LABS: Osmolality Serum 256 mOsm/kg (278-305)
[2020-09-12 16:15] LABS: ABG PCO2 43.8 mmHg (35-45); ABG PH Result 7.42 (7.35-7.45); Alveolar-Arterial Oxygen Gradi 55.2 mmHg (5-10); Arterial Blood Gas Hematocrit 45.1 % (42-52); Base Excess ABG 3.3 mmol/L (-2.0-2.0); Blood Gas Allen Test Pos; Blood Gas Operator Identificat AMH; Blood Gas Sample Site Radial, left; Blood Gas Sample Type Arterial; Blood Gas Tidal Volume 0.46; Carboxyhemoglobin 0.5 %THgb (0.4-20.1); HCO3 ABG 28.4 mmol/L (22-26); HGB O2 Sat 86.8 % (95-100); Ionized Calcium Level - ABG 1.2 mmol/L (1.1-1.4); Methemoglobin 0.8 % (0.4-1.5); Oxygen Device VENT; Oxygen Saturation ABG 87.9; PO2 ABG 55.5 mmHg (80.0-100.0); Potassium Level - ABG 4.2 mmol/L (3.5-5.0); Total Hemoglobin 14.7 g/dL (14-18)
[2020-09-12 17:55] LABS: ABG PCO2 44.6 mmHg (35-45); ABG PH Result 7.41 (7.35-7.45); Arterial Blood Gas Hematocrit 50.4 % (42-52); Blood Gas Allen Test Pos; Blood Gas Sample Type Arterial; Carboxyhemoglobin 0.5 %THgb (0.4-20.1); HCO3 ABG 28.4 mmol/L (22-26); HGB O2 Sat 89.1 % (95-100); Ionized Calcium Level - ABG 1.2 mmol/L (1.1-1.4); Methemoglobin 0.3 % (0.4-1.5); Oxygen Saturation ABG 89.8; PO2 ABG 59.8 mmHg (80.0-100.0); Potassium Level - ABG 4.3 mmol/L (3.5-5.0); Total Hemoglobin 16.4 g/dL (14-18)
[2020-09-12 17:57] LABS: Alveolar-Arterial Oxygen Gradi 59.2 mmHg (5-10); Blood Gas Operator Identificat MONRO; Blood Gas Sample Site Radial, left; Blood Gas Tidal Volume 0.46; Oxygen Device VENT
[2020-09-12] MEDS: famotidine 20 mg/2 mL INJ IVP (18:15)
[2020-09-12] MEDS: remdesivir 100 MG in sodium chloride 0.9% (100 ml) 100 ML IV (18:16)
[2020-09-12] MEDS: propofol 1,000 MG/100 ML INJ 2.5 MG IV (18:21)
--- NOTE | 2020-09-12 18:45 | PC.NURSE ---
Received bedside report on patient from Denise AVALOS. Verified drips and dosages with Denise AVALOS at bedside. Contacted Dr. Martinez regarding BP and HR. Order for Levophed drip put in by Dr. Martinez. Stated he was ok with the SPB if it was greater than 90.
[2020-09-13] VITALS (35 sets, daily range): BP systolic 88–135; BP diastolic 47–84; PULSE 53–120; RESP 12–26; TEMP 36.7–37.2; O2SAT 90–97
[2020-09-13] MEDS: famotidine 20 mg/2 mL INJ IVP ×2 (04:30→17:40)
[2020-09-13 07:34] LABS: Basophils % 0.2 %; Eosinophils % 0.1 %; Hemoglobin 13.8 g/dL (11.7-16.6); Lymphocytes # 0.8 10^3/uL (0.8-4.8); Mean Corpuscular HGB Conc 32.9 g/dL (30.0-36.0); Mean Corpuscular Hemoglobin 34.8 pg (28.0-34.0); Mean Corpuscular Volume 105.8 fL (80-94); Mean Platelet Volume 10.4 fL (7.4-10.4); Monocytes # 1.6 10^3/uL (0.2-0.9); Monocytes % 10.1 %; Neutrophils % 83.6 %; Nucleated Red Blood Cells % 0 %; Platelet Count 268 10^3/cmm (130-400); Red Blood Count 3.97 10^6/uL (4.1-5.3); Red Cell Distribution Width 12.3 % (12.1-15.1)
[2020-09-13 08:30] LABS: ABG PCO2 41.9 mmHg (35-45); ABG PH Result 7.44 (7.35-7.45); Alveolar-Arterial Oxygen Gradi 53.7 mmHg (5-10); Arterial Blood Gas Hematocrit 47.4 % (42-52); Base Excess ABG 3.9 mmol/L (-2.0-2.0); Blood Gas Allen Test Pos; Blood Gas Operator Identificat MONRO; Blood Gas Sample Site Radial, left; Blood Gas Sample Type Arterial; Blood Gas Tidal Volume 0.46; Carboxyhemoglobin 0.5 %THgb (0.4-20.1); HCO3 ABG 28.5 mmol/L (22-26); HGB O2 Sat 93.7 % (95-100); Ionized Calcium Level - ABG 1.2 mmol/L (1.1-1.4); Methemoglobin 0.3 % (0.4-1.5); Oxygen Device VENT; Oxygen Saturation ABG 94.4; PO2 ABG 72.2 mmHg (80.0-100.0); Total Hemoglobin 15.5 g/dL (14-18)
[2020-09-13] MEDS: ipratropium-albuterol 3 mL Neb INHALATION ×4 (08:35→20:50)
[2020-09-13] MEDS: azithromycin 500 MG in sodium chloride 0.9% 250 ML 250 MG IV (09:28)
[2020-09-13] MEDS: multivitamin therapeutic Tablet 1 TAB PO ×2 (09:28→09:51)
[2020-09-13] MEDS: cefTRIAXone 1,000 MG in sodium chloride 0.9% (plus) 50 ML 100 MG IV (09:43)
[2020-09-13] MEDS: dexamethasone 4 mg/mL INJ 6 MG IVP (09:44)
[2020-09-13] MEDS: apixaban 5 mg Tablet 2.5 MG PO ×2 (09:50→17:41)
[2020-09-13] MEDS: folic acid 1 mg Tablet PO (09:51)
[2020-09-13] MEDS: thiamine 100 mg Tablet PO (09:51)
[2020-09-13 13:48] LABS: Alanine Aminotransferase 33 U/L (0-41); Albumin Level 2.5 g/dL (3.5-5.2); Alkaline Phosphatase 82 IU/L (40-130); Anion Gap 11.3 (5-19); Aspartate Amino Transferase 29 U/L (0-40); Blood Urea Nitrogen 14 mg/dL (6-20); Calcium 8.4 mg/dL (8.5-10.5); Carbon Dioxide 28 mmol/L (22-29); Chloride 98 mmol/L (98-107); Globulin 3.3 g/dL (1.3-4.6); Glomerular Filtration Rate 140.4 mL/min (90-130); Glucose 105 mg/dL (65-115); Osmolality Calculated 277 mOsm/kg (285-295); Potassium 4.3 mmol/L (3.5-5.1); Sodium 133 mmol/L (136-145); Total Bilirubin 0.3 mg/dL (0.15-1.2); Total Protein 5.8 g/dL (6.6-8.7)
--- NOTE | 2020-09-13 16:17 | P.CONIM_ITS ---
Providers/Reason For Consult Consulting Physican/Specialty*: Ankit Grace MD/Pulmonary Critical Care Reason for Consult*: Acute hypoxic respiratory failure secondary to COVID-19 pneumonia Attending Physician: Nayla Martinez Primary Care Provider: Mirna Zavala APN History of Present Illness History of Present Illness 54 year old male who does not have significant past medical history contracted COVID-19 pneumonia on 08/20, was treated with steroids only at home, his symptoms got worse in last few days, now he is getting more short of breath, his O2 saturation was normal 2 weeks ago and now below 90% at home and came to ER for further evaluation. There is gradual worsening of his symptoms no particular relieving or aggravating factors identified by the patient. He is a non-smoker. He drinks 10 to 12 cans of beer almost daily basis. CTA negative for PE however showing groundglass opacities. Patient was initially requiring 15 L nonrebreather mask saturating 95% however later transitioned to HFNC. Transferred to VICU. On 09/11/20 Intubated on MV and sedated. Pulmonary critical care consult called for management of acute hypoxic respiratory failure secondary to COVID-19 pneumonia. Today patient is sedated and ventilated but still opening eyes and following commands. Otherwise no acute events Review of Systems General: Reports: ROS unobtainable due to endotracheal tube, ROS unobtainable due to medical condition and ROS unobtainable due to mental status Meds/Allergies Home Medications and Allergies Home Medications Medication Instructions Recorded Confirmed Last Taken Type lisinopril 20 mg PO DAILY 09/09/20 09/09/20 Unknown History metoprolol succinate 50 mg PO DAILY 09/09/20 09/09/20 Unknown History Allergies Allergy/AdvReac Type Severity Reaction Status Date / Time calamari Allergy Unknown Uncoded 09/09/20 23:21 Current Medications Current Medications Generic Name Dose Route Start Last Admin Trade Name Freq PRN Reason Stop Dose Admin Acetaminophen 500 mg 09/09/20 21:49 09/10/20 02:12 Acetaminophen 500 Mg Tablet PO 500 mg Q4H PRN Administration fever Albuterol/Ipratropium 3 ml 09/12/20 21:00 09/13/20 15:14 Ipratropium-Albuterol 3 Ml Neb INHALATION 3 ml Q6H.RESPIRATORY KATARINA Administration Apixaban 2.5 mg 09/10/20 09:00 09/13/20 09:50 Apixaban 5 Mg Tablet PO 2.5 mg BID KATARINA Administration Dexamethasone 6 mg 09/13/20 09:00 09/13/20 09:44 Dexamethasone 4 Mg/Ml Inj IVP 6 mg Q24H KATARINA Administration Famotidine 20 mg 09/12/20 16:00 09/13/20 04:30 Famotidine 20 Mg/2 Ml Inj IVP 20 mg Q12H KATARINA Administration Folic Acid 1 mg 09/10/20 09:00 09/13/20 09:51 Folic Acid 1 Mg Tablet PO 1 mg DAILY KATARINA Administration Remdesivir 100 mg/ Sodium 100 mls @ 100 mls/hr 09/10/20 18:00 09/12/20 19:20 Chloride IV 09/13/20 18:59 Infused Q24H KATARINA Infusion Ceftriaxone Sodium 1,000 mg/ 50 mls @ 100 mls/hr 09/10/20 08:45 09/13/20 09:43 Sodium Chloride IV 100 mls/hr Q24H KATARINA Administration Protocol Azithromycin 500 mg/ Sodium 250 mls @ 250 mls/hr 09/10/20 08:45 09/13/20 09:28 Chloride IV 250 mls/hr Q24H KATARINA Administration Protocol Fentanyl 1,000 mcg/ Sodium 100 mls @ 0 mls/hr 09/11/20 11:15 09/13/20 05:47 Chloride IV 100 mcg/hr .Q0M KATARINA 10 mls/hr Administration Protocol Per Protocol Propofol 1,000 mg in 100 mls @ 0 mls/hr 09/11/20 11:15 09/13/20 00:07 Diprivan IV 7.5 mcg/kg/min .Q0M KATARINA 3.8 mls/hr Titration Protocol Per Protocol Dexmedetomidine HCl 400 mcg/ 104 mls @ 0 mls/hr 09/11/20 11:15 09/12/20 09:56 Sodium Chloride IV Infused .Q0M KATARINA Titration Protocol Per Protocol Midazolam HCl 100 mg/ Sodium 100 mls @ 0 mls/hr 09/11/20 13:30 09/12/20 18:30 Chloride IV 2 mg/hr .Q0M KATARINA 2 mls/hr Administration Protocol Per Protocol Norepinephrine Bitartrate 4 mg 254 mls @ 0 mls/hr 09/12/20 19:30 01/05/21 02:23 / Dextrose IV 2 mcg/min .Q0M KATARINA 7.6 mls/hr Titration Protocol Per Protocol Multivitamins Therapeutic 1 tab 09/10/20 09:00 09/13/20 09:28 Multivitamin Therapeutic Tablet PO 1 tab DAILY KATARINA Administration Multivitamins Therapeutic 1 tab 09/11/20 09:00 09/13/20 09:51 Multivitamin Therapeutic Tablet PO 1 tab DAILY KATARINA Administration Thiamine Mononitrate 100 mg 09/11/20 09:00 09/13/20 09:51 Thiamine 100 Mg Tablet PO 100 mg DAILY KATARINA Administration PFSH Acute PFSH: Medical History Hypertension Normal colonoscopy Surgical History History of incision and drainage Gluteal abscess Family History Father Cancer Multiple myeloma Social History Smoking and tobacco status: never smoked Alcohol intake: current Alcohol intake frequency: 3 or more drinks per day Alcohol type: beer Substance/Drug Use: never Household members: spouse Housing: House Marital status: Vitals/I&O/Wt Last Vital Signs Temp 98.0 F 09/13/20 02:00 Pulse 85 09/13/20 15:14 Resp 14 09/13/20 15:14 BP 114/73 09/13/20 04:00 Pulse Ox 93 09/13/20 15:14 09/13/20 09/13/20 09/13/20 06:59 14:59 22:59 Intake Total 76.830 / 877.237 Output Total 750 / 1400 Balance -673.170 / -522.763 Physical Exam Narrative: EXAM NARRATIVE: PHYSICAL EXAM: General: lying in bed, sedated and intubated. 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 SKIN: no rash Urinary Catheter Management^: Schumacher: Cath Placed During This Visit: yes Reason for Continuing Indwelling Catheter: Accurate Measurement of Urinary Output in Critically Ill Patients Urinary Catheter Date of Insertion: 09/11/20 Urinary Catheter Time of Insertion: 12:40 Data Micro: Micro: Microbiology 09/11/20 12:17 Gram Stain - Final Sputum - Endotrac heal Tube Aspirate Sputum Culture - F inal A&P Assessment and plan (1) Acute respiratory failure with hypoxia: Status: Acute (2) 2019 novel coronavirus–infected pneumonia (NCIP)#8211;infected pneumonia (NCIP): Status: Acute Overall: 54 year old male who does not have significant past medical history contracted COVID-19 pneumonia progressively worsening respiratory failure admitted to viral ICU for management of acute hypoxic respiratory failure secondary to acute respiratory distress syndrome due to COVID-19 pneumonia requiring mechanical ventilation to provide oxygenation. NEURO: # Sedation #Chronic alcohol abuse - > 10 beers a day -Currently on fentanyl/Versed/propofol-recommended to taper down Versed -Closely monitor vitals to prevent delirium tremens PULM: #Acute hypoxic and hypercapneic respiratory failure secondary to ARDS due to COVID pna -Intubated on 09/11/2019 -ABG On CMV TV 460/FiO2 55 %/RR 12/PEEP 12-7.4 4/41/72/20 8/94% - Chest x-ray 09/12/2020:Diffuse bilateral pulmonary opacifications without significant improvement. -If hypoxia is persistent on maximum settings recommended starting on paralytic and prone -Increased inflammatory markers CRP, ferritin and repeat every 2 days to trend markers of inflammation --Currently on remdesivir and dexamethasone; Can discontinue remdesivir but continue dexamethasone daily CVS: -Hemodynamically stable -Off pressor -Monitor blood pressure -BNP 43 -Continue cardiac monitoring GI: -Start on Pulmicort tube feeding at 10mL/hr -Started senna docusate at bedtime for bowel regimen -Pepcid every 12 daily for GI prophylaxis -LFTs within normal limits RENAL: -Normal renal functions -Electrolytes within normal limits -Follow-up magnesium, phosphorus, and CK -Urine output good so far +400 mL since admission -Continue schumacher cath; for strict I&O monitoring -Avoid nephrotoxins -Monitor BUN/creatinine and electrolytes and supplement accordingly to keep K between 4-4.5, Mg >2 HEM: H&H stable Plts stable,will trend Coags stable DVT prophylaxis currently on Eliquis 2.5 twice daily-can switch to heparin prophylactic dose ENDO: -No active issues -monitor sugars and insulin scale coverage ID: #Sepsis secondary to COVID pna -WBC 16 K -monitor - Afebrile -Procalcitonin 0.13 and lactic acid 1.7 -sputum cx negative; blood cultures negative so far -Can DC- Rocephin, azithromycin Prognosis: Critical Disposition: Remains in ICU Code: Full code Plan of care and recommendations conveyed to Dr. Martinez hospitalist on the case, RN and RT ICU CHECKLIST: Problem list updated Verbal orders reviewed and signed Analgesia: Fentanyl Glycemic Control: Not needed Nutrition: Recommended to start tube feeding Pulmicort at 20 mL's per hour Restraint Renewal (within 24 hrs): Yes Ulcer Prophylaxis:PPI yes Chemical Thromboprophylaxis: Prophylaxis: Switch to heparin prophylactic dose Mechanical Thromboprophylaxis: Yes Need for Central line: No Need for Schumacher catheter: Yes for urine output monitoring Critical Care Time (No Overlap): 45 min This patient has a high probability of sudden, clinically significant deterioration, which requires the highest level of physician preparedness to intervene urgently. I managed/supervised life or organ supporting interventions that required frequent physician assessment. I devoted my full attention in the ICU to the direct care of this patient for the period of time indicated above. Time I spent with family or surrogate(s) is included only if the patient was incapable of providing necessary information or participating in decision making. Time devoted to teaching and to any procedures I billed separately is not included. Services Provided: Telemetry review Mechanical Ventilation Hemodynamic interpretation, assessment and management Review and interpretation of CXR Review and interpretation of lab values Review and interpretation of microbiologic data and culture results Review of medications and administration Review and interpretation of Nutrition requirements and management Discussion of management with other consultants and services Clinical update to family members Consult Attestations Medical Necessity Statement: acute hypoxemic respiratory failure secondary to acute respiratory distress syndrome due to COVID-19 pneumonia requiring mechanical ventilation to provide oxygenation, Time Spent in Patient Care: (>than 50% of time spent in counselling and/or direct pt care on unit) . Critical Care Time: Critical Care Time (min): 45 Coding Level of Care Code Acute Key Holder for [facility] Fwd Diagnoses Acute respiratory failure with hypoxia J96.01 2019 novel coronavirus–infected pneumonia (NCIP)#8211;infected pneumonia (NCIP) U07.1; J12.89
[2020-09-13] MEDS: remdesivir 100 MG in sodium chloride 0.9% (100 ml) 100 ML IV (17:50)
--- NOTE | 2020-09-13 20:48 | P.PN_ITS ---
Subjective Subjective: Interval history: 54 year old male who does not have significant past medical history presented today with chief complaint of worsening shortness of breath. Patient contracted COVID-19 pneumonia on 08/20, was treated with steroids only at home, his symptoms started getting worse in last few days, now he is getting more short of breath, his O2 saturation was normal 2 weeks ago and now below 90% at home, he has not required any oxygenation until today, he is also experiencing diarrhea 3-4 episodes a day, no active chest pain, he is bringing clear sputum with his cough, no orthopnea, PND, leg swelling. His PCP prescribed Levaquin, he has taken 3 doses so far. His symptoms were not improving hence he decided to come to the ED for further evaluation. There is gradual worsening of his symptoms no particular relieving or aggravating factors identified by the patient. He is a non-smoker. He drinks 10 to 12 cans of beer almost daily basis CTA was requested which came back negative for PE however showing groundglass opacities Patient was initially requiring 15 L nonrebreather mask saturating 95% however later transitioned to HFNC. Transferred to VICU. Subjective 09/10/20 Patient is stable on HFNC. Respiratory distress with exertion. No fever, chills, nausea or vomiting. 09/11/20 Intubated on MV 09/12/20 Patient unfortunately was very agitated in am on 09/11. Was non-cooperative with HFNC during which time he was noted to have desaturation. This was discussed with patients who gave consent for intubation. Patients Fio2 has to 65% today. Was noted to have bradycardia. Remained afebrile. 09/13 No new clinical events overnight, no fevers Remained stable on vent. continue to wean fio2 Medications: Reviewed: Yes Vitals/I&O/Wt Last Vital Signs Temp 98.9 F 09/13/20 08:00 Pulse 93 09/13/20 17:27 Resp 14 09/13/20 19:30 BP 101/59 09/13/20 17:00 Pulse Ox 94 09/13/20 17:27 09/13/20 09/13/20 09/13/20 06:59 14:59 22:59 Intake Total 76.830 / 877.237 300 / 300 97.167 / 397.167 Output Total 750 / 1400 Balance -673.170 / -522.763 300 / 300 97.167 / 397.167 Physical Exam Narrative: EXAM NARRATIVE: General : Intubated on vent HEENT ; ET tube CVS: Sinus tythym Chest : Vented, non-labored Abdomen: Non-tender Ext: No edema Urinary Catheter Management^: Guerra: Cath Placed During This Visit: yes Reason for Continuing Indwelling Catheter: Accurate Measurement of Urinary Output in Critically Ill Patients Urinary Catheter Date of Insertion: 09/11/20 Urinary Catheter Time of Insertion: 12:40 Data : 09/13/20 04:15 09/13/20 13:15 Micro: Microbiology 09/11/20 12:17 Gram Stain - Final Sputum - Endotracheal Tube Aspirate Sputum Culture - Final A&P Assessment and plan (1) 2019 novel coronavirus–infected pneumonia (NCIP)#8211;infected pneumonia (NCIP): Status: Acute (2) Sepsis: Status: Acute (3) Acute respiratory failure with hypoxia: Status: Acute (4) Hyponatremia: Status: Acute Additional A&P Information Acute Hypoxic Respiratory failure - Likely due to COVID-19 pneumonia - Intubated on 09/12/20 - Vent settings - CMV, TV 500, PIP 17 ,Pplateau -20, itime 1.2 PEEP of 10, Min ventilation 7.4, Lung compliance 94, airway resistance of 7. Fio2 weaned to 65% - ABG - 7.43, PCO2 - 43.7, PO2 67.8 - P/F ratio -> 112 - Moderate ARDS - 09/12- Chest x-ray - > Diffuse bilateral pulmonary opacifications without significant improvement. - Will consult with pulmonary- king yi consider deep sedation and proaning today - Currently on Propofol/Fentanyl for sedation - Repeat ABG and chest x-ray in am - Pulmonary recommendation noted CoV-19 Pneumonia - Started on Remdesivir 5 days protocol - Decadron 6 mg IV daily - Ferritin 4788 -> 3323 - Follow up on repeat - Pro-calcitonin 0.13 - Was started empirically on Rocephin 1 g daily - Azithromycin 500 mg IV daily - Remained afebrile - leukocytosis likely due to steroids - 09/09 - Blood culture x 2 - NGTD - 09/11 - Sputum culture - GS- Negative culture - pending - D -dimer -3.78- > 2.43 -> 2.19 On eliquis 2.5 mg PO BID - Qother day inflammatory marker trend Alcoholism with withdrawals - Currently sedation - PRN versed for seizure like activity Elevated LFTs - Etiology multi-factorial - AST 59 -> 29 - ALT 52 -> 37 Hx of Hypertension - Holding lisinopril/ metoprolol GI ppx - Pepcid 20 mg IV BID DVT ppx - Eliquis 2.5 mg PO BID Attestations Medical Necessity Statement*: Continue hospitalization for management of respiratory failure Time Spent in Patient Care: Greater than 35 minutes (>than 50% of time spent in counselling and/or direct pt care on unit) . 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
--- NOTE | 2020-09-13 23:41 | PC.NURSE ---
Pt appears to be resting with eyes closed. VSS.
[2020-09-14] VITALS (39 sets, daily range): BP systolic 86–142; BP diastolic 52–102; PULSE 59–135; RESP 12–36; TEMP 36.7–36.9; O2SAT 86–98
[2020-09-14] MEDS: propofol 1,000 MG/100 ML INJ 22.7 MG IV (01:00)
[2020-09-14] MEDS: ipratropium-albuterol 3 mL Neb INHALATION ×2 (02:04→08:02)
[2020-09-14] MEDS: famotidine 20 mg/2 mL INJ IVP ×2 (03:31→18:12)
[2020-09-14 05:59] LABS: Basophils % 0.1 %; Hematocrit 39.5 % (42.0-52.0); Hemoglobin 12.8 g/dL (11.7-16.6); Lymphocytes # 0.9 10^3/uL (0.8-4.8); Lymphocytes % 7.8 %; Mean Corpuscular HGB Conc 32.4 g/dL (30.0-36.0); Mean Corpuscular Hemoglobin 34.6 pg (28.0-34.0); Mean Corpuscular Volume 106.8 fL (80-94); Mean Platelet Volume 9.6 fL (7.4-10.4); Monocytes # 0.8 10^3/uL (0.2-0.9); Monocytes % 6.8 %; Neutrophils # 9.47 10^3/uL (1.8-7.7); Neutrophils % 84.7 %; Nucleated Red Blood Cells % 0 %; Platelet Count 236 10^3/cmm (130-400); Red Cell Distribution Width 12.1 % (12.1-15.1); White Blood Count 11.2 10^3/uL (4.0-10.0)
[2020-09-14 06:37] LABS: Lactate Dehydrogenase 245 U/L (135-225); Magnesium 2.3 mg/dL (1.7-2.3); Phosphorus 3.1 mg/dL (2.5-4.5)
[2020-09-14 06:38] LABS: Alanine Aminotransferase 29 U/L (0-41); Albumin Level 2.4 g/dL (3.5-5.2); Alkaline Phosphatase 62 IU/L (40-130); Anion Gap 12.1 (5-19); Aspartate Amino Transferase 20 U/L (0-40); Blood Urea Nitrogen 13 mg/dL (6-20); Calcium 8.2 mg/dL (8.5-10.5); Carbon Dioxide 26 mmol/L (22-29); Chloride 98 mmol/L (98-107); Globulin 3.1 g/dL (1.3-4.6); Glomerular Filtration Rate 224.2 mL/min (90-130); Glucose 114 mg/dL (65-115); Osmolality Calculated 275 mOsm/kg (285-295); Potassium 4.1 mmol/L (3.5-5.1); Sodium 132 mmol/L (136-145); Total Bilirubin 0.4 mg/dL (0.15-1.2); Total Protein 5.5 g/dL (6.6-8.7)
--- NOTE | 2020-09-14 06:52 | PC.NURSE ---
Report to BAILEY Walker
--- NOTE | 2020-09-14 07:00 | XR_ITS ---
WS: [id number] PORTABLE CHEST HISTORY: respiratory failure COMPARISON: 09/12/2020 Endotracheal tube ends several centimeters above the conor. Nasogastric tube tip is just within the stomach. Recommend advancing another 10 cm for more optimal positioning. NG tube retracted since the prior study. Hazy areas of consolidation over both lungs. Slight improvement since the prior study. No pleural eff usion or pneumothorax. Cardiac size: Normal. Mediastinum/Aorta: Normal mediastinum. No osseous abnormality seen. XR/XR chest 1V portable [id number] IMPRESSION: 1. Endotracheal tube in good position. 2. Recommend advancing NG tube 10 cm. 3. Very mild improvement in the bilateral multi lobar opacifications.
[2020-09-14] MEDS: azithromycin 500 MG in sodium chloride 0.9% 250 ML 250 MG IV (09:08)
[2020-09-14] MEDS: cefTRIAXone 1,000 MG in sodium chloride 0.9% (plus) 50 ML 100 MG IV (09:09)
[2020-09-14] MEDS: dexamethasone 4 mg/mL INJ 6 MG IVP (09:09)
[2020-09-14] MEDS: multivitamin therapeutic Tablet 1 TAB PO (09:19)
[2020-09-14] MEDS: folic acid 1 mg Tablet PO (09:19)
[2020-09-14] MEDS: thiamine 100 mg Tablet PO (09:19)
--- NOTE | 2020-09-14 11:27 | PC.NURSE ---
Washed hands and face
[2020-09-14] MEDS: albuterol 8 gm MDI 2 PUFF INHALATION ×2 (14:30→19:28)
--- NOTE | 2020-09-14 15:42 | P.PN_ITS ---
Subjective Subjective: Interval history: 54 year old male who does not have significant past medical history presented today with chief complaint of worsening shortness of breath. Patient contracted COVID-19 pneumonia on 08/20, was treated with steroids only at home, his symptoms started getting worse in last few days, now he is getting more short of breath, his O2 saturation was normal 2 weeks ago and now below 90% at home, he has not required any oxygenation until today, he is also experiencing diarrhea 3-4 episodes a day, no active chest pain, he is bringing clear sputum with his cough, no orthopnea, PND, leg swelling. His PCP prescribed Levaquin, he has taken 3 doses so far. His symptoms were not improving hence he decided to come to the ED for further evaluation. There is gradual worsening of his symptoms no particular relieving or aggravating factors identified by the patient. He is a non-smoker. He drinks 10 to 12 cans of beer almost daily basis CTA was requested which came back negative for PE however showing groundglass opacities Patient was initially requiring 15 L nonrebreather mask saturating 95% however later transitioned to HFNC. Transferred to VICU. Subjective 09/10/20 Patient is stable on HFNC. Respiratory distress with exertion. No fever, chills, nausea or vomiting. 09/11/20 Intubated on MV 09/12/20 Patient unfortunately was very agitated in am on 09/11. Was non-cooperative with HFNC during which time he was noted to have desaturation. This was discussed with patients who gave consent for intubation. Patients Fio2 has to 65% today. Was noted to have bradycardia. Remained afebrile. 09/13 No new clinical events overnight, no fevers Remained stable on vent. continue to wean fio2 09/14 Extubated to MS Medications: Reviewed: Yes Vitals/I&O/Wt Last Vital Signs Temp 97.9 F 09/15/20 00:21 Pulse 65 09/15/20 00:00 Resp 12 09/15/20 00:00 BP 122/80 09/15/20 00:00 Pulse Ox 91 09/15/20 00:00 09/14/20 09/14/20 09/15/20 14:59 22:59 06:59 Intake Total 444.133 / 444.133 240 / 684.133 Output Total 300 / 300 Balance 144.133 / 144.133 240 / 384.133 Physical Exam Narrative: EXAM NARRATIVE: General : Intubated on vent HEENT ; ET tube CVS: Sinus tythym Chest : Vented, non-labored Abdomen: Non-tender Ext: No edema Urinary Catheter Management^: Guerra: Cath Placed During This Visit: yes, but has since been removed by the nurse Reason for Continuing Indwelling Catheter: Does Not Meet Criteria Urinary Catheter Date of Insertion: 09/11/20 Urinary Catheter Time of Insertion: 12:40 Date Urinary Catheter Removed: 09/14/20 Time Urinary Catheter Discontinued: 13:00 Data : 09/14/20 05:38 09/14/20 05:38 Micro: Microbiology 09/09/20 20:59 Blood Culture - Final Blood NO GROWTH AFTER 5 DAYS 09/09/20 21:00 Blood Culture - Final Blood NO GROWTH AFTER 5 DAYS A&P Assessment and plan (1) 2018 novel coronavirus–infected pneumonia (NCIP)#8211;infected pneumonia (NCIP): Status: Acute (2) Sepsis: Status: Acute (3) Acute respiratory failure with hypoxia: Status: Acute (4) Hyponatremia: Status: Acute Additional A&P Information Acute Hypoxic Respiratory failure - Likely due to COVID-19 pneumonia - Intubated on 09/12/20 -> Extubated 09/14 - Wean o2 as tolerated - Pulmonary recommendation noted CoV-19 Pneumonia - Started on Remdesivir 5 days protocol - Decadron 6 mg IV daily - Ferritin 4788 -> 3323 - Follow up on repeat - Pro-calcitonin 0.13 - Was started empirically on Rocephin 1 g daily - Azithromycin 500 mg IV daily - Remained afebrile - leukocytosis likely due to steroids - 09/09 - Blood culture x 2 - NGTD - 09/11 - Sputum culture - GS- Negative culture - pending - D -dimer -3.78- > 2.43 -> 2.19 On eliquis 2.5 mg PO BID - Qother day inflammatory marker trend Alcoholism with withdrawals - Currently sedation - PRN versed for seizure like activity Elevated LFTs - Etiology multi-factorial - AST 59 -> 29 - ALT 52 -> 37 Hx of Hypertension - Holding lisinopril/ metoprolol GI ppx - Pepcid 20 mg IV BID DVT ppx - Eliquis 2.5 mg PO BID Attestations Medical Necessity Statement*: continue hospitalization Time Spent in Patient Care: 16 - 35 minutes (>than 50% of time spent in counselling and/or direct pt care on unit) . Coding Level of Care Code Acute Medical Staff Manager for [facility] Fwd Diagnoses 2019 novel coronavirus–infected pneumonia (NCIP)#8211;infected pneumonia (NCIP) U07.1; J12.89 Sepsis A41.9 Acute respiratory failure with hypoxia J96.01 Hyponatremia E87.1
[2020-09-14] MEDS: apixaban 5 mg Tablet 2.5 MG PO (18:13)
--- NOTE | 2020-09-14 18:25 | PC.NURSE ---
Addendum entered by Chayo Suggs RN 09/15/20 07:37: Witnessed waste of Fentanyl 15mL, and Versed 70mL Original Note: Doris Mallory RN was caring for this patient last shift starting on 1900 09/13/20 to 0700 09/14/20. executive sales manager requested Doris Mallory to scan medications from last shift. Doris Mallory RN called this nurse Denise Vo and stated she was unable to return to facility today to scan medication and requested this nurse to place a note as to scanning times. Propofol would not scan into system stating scan could not occur prior to 0900. Propofol removed from pyxis at 0450. Fentanyl stopped at 0900. Fentanyl wasted 15ml, this bag was mixed and should have been scanned at 0130. Versed stopped at 0900. wasted 70ml. This bag of versed should have been scanned at 0200.
--- NOTE | 2020-09-14 21:49 | PC.NURSE ---
Received report from off going nurse. Pt's plan of care reviewed. Pt sitting up in bed. Respirations are even and unlabored. Pt does become short of breath during exertion and drops do the low 80s in 02 sats. Pt is on 8 LPM/high flow nasal cannula. Pt is alert and oriented and able to follow commands appropriately. Pt denies any pains or concerns at this time. Bed in lowest and locked position, call light and water within reach, x's 2 rails up. Will continue to monitor pt.
[2020-09-15] VITALS (34 sets, daily range): BP systolic 108–163; BP diastolic 70–102; PULSE 64–155; RESP 8–28; TEMP 36.4–37; O2SAT 86–97
[2020-09-15] MEDS: famotidine 20 mg/2 mL INJ IVP ×2 (04:33→15:50)
[2020-09-15 05:14] LABS: Basophils % 0.1 %; Eosinophils % 0.2 %; Hematocrit 40.2 % (42.0-52.0); Hemoglobin 13.5 g/dL (11.7-16.6); Lymphocytes # 0.7 10^3/uL (0.8-4.8); Lymphocytes % 7.7 %; Mean Corpuscular HGB Conc 33.6 g/dL (30.0-36.0); Mean Corpuscular Volume 104.1 fL (80-94); Monocytes # 0.6 10^3/uL (0.2-0.9); Monocytes % 6.1 %; Neutrophils # 8.19 10^3/uL (1.8-7.7); Neutrophils % 85.3 %; Nucleated Red Blood Cells % 0 %; Platelet Count 234 10^3/cmm (130-400); Red Blood Count 3.86 10^6/uL (4.1-5.3); Red Cell Distribution Width 11.9 % (12.1-15.1); White Blood Count 9.6 10^3/uL (4.0-10.0)
[2020-09-15 05:31] LABS: Anion Gap 9.3 (5-19); Blood Urea Nitrogen 11 mg/dL (6-20); Calcium 8.3 mg/dL (8.5-10.5); Carbon Dioxide 31 mmol/L (22-29); Chloride 97 mmol/L (98-107); Glomerular Filtration Rate 173.3 mL/min (90-130); Glucose 108 mg/dL (65-115); Osmolality Calculated 276 mOsm/kg (285-295); Potassium 4.3 mmol/L (3.5-5.1); Sodium 133 mmol/L (136-145)
[2020-09-15] MEDS: dexamethasone 4 mg/mL INJ 6 MG IVP (08:26)
[2020-09-15] MEDS: apixaban 5 mg Tablet 2.5 MG PO ×2 (08:26→19:24)
[2020-09-15] MEDS: multivitamin therapeutic Tablet 1 TAB PO (08:27)
[2020-09-15] MEDS: azithromycin 500 MG in sodium chloride 0.9% 250 ML 250 MG IV (08:28)
[2020-09-15] MEDS: albuterol 8 gm MDI 2 PUFF INHALATION ×3 (09:07→19:38)
[2020-09-15] MEDS: cefTRIAXone 1,000 MG in sodium chloride 0.9% (plus) 50 ML 100 MG IV (10:38)
[2020-09-15] MEDS: folic acid 1 mg Tablet PO (10:39)
[2020-09-15] MEDS: thiamine 100 mg Tablet PO (10:40)
--- NOTE | 2020-09-15 11:44 | P.PN_ITS ---
Subjective Subjective: Interval history: No acute event overnight. Currently saturating well on NC 8Ls oXygen Via NC. Other vitals and labs have been reviewed. Medications: Reviewed: Yes Vitals/I&O/Wt Last Vital Signs Temp 98.6 F 09/15/20 07:00 Pulse 96 09/15/20 11:00 Resp 19 H 09/15/20 11:00 BP 118/77 09/15/20 11:00 Pulse Ox 90 09/15/20 11:00 09/14/20 09/15/20 09/15/20 22:59 06:59 14:59 Intake Total 240 / 684.133 790 / 790 Output Total 250 / 550 Balance 240 / 384.133 -250 / 134.133 790 / 790 Physical Exam Const: COMMON NORMALS: patient oriented x3 HENMT: COMMON NORMALS: normocephalic and atraumatic HEAD & SCALP: normocephalic and atraumatic Chest: COMMONS NORMALS: normal inspection of the chest CHEST: Yes Symmetrical chest wall rise Resp: COMMON NORMALS: normal respiratory effort and clear to auscultation bilaterally EFFORT & INSPECTION: Yes symmetric chest movement AUSCULTATION: clear to auscultation bilaterally Cardio: COMMON NORMALS: regular rate, regular rhythm, S1 normal heart sound present, S2 normal heart sound present, No gallops present (Cardio), No murmurs present (Cardio), No rub (Cardio) and Peripheral pulses 2+ throughout RATE: regular rate RHYTHM: regular rhythm HEART SOUNDS: S1 normal heart sound present and S2 normal heart sound present PERIPHERAL PULSES: Peripheral p ulses 2+ throughout GI: COMMON NORMALS: Normal to inspection, nondistended, normoactive bowel sounds present, Soft to palpation, non-tender, No hepatosplenomegaly present and no masses AUSCULTATION: Yes normoactive bowel sounds PALPATION: Yes Soft to palpation and Yes No hepatosplenomegaly present RECTAL EXAM: Yes deferred Extremity: COMMON NORMALS: no clubbing, cyanosis or edema and no pedal edema Neuro: COMMON NORMALS: patient oriented x3 Urinary Catheter Management^: Guerra: Cath Placed During This Visit: yes, but has since been removed by the nurse Reason for Continuing Indwelling Catheter: Does Not Meet Criteria Urinary Catheter Date of Insertion: 09/11/20 Urinary Catheter Time of Insertion: 12:40 Date Urinary Catheter Removed: 09/14/20 Time Urinary Catheter Discontinued: 13:00 Data : 09/15/20 04:51 09/15/20 04:51 Micro: Microbiology 09/09/20 20:59 Blood Culture - Final Blood NO GROWTH AFTER 5 DAYS 09/09/20 21:00 Blood Culture - Final Blood NO GROWTH AFTER 5 DAYS A&P Assessment and plan (1) 2018 novel coronavirus–infected pneumonia (NCIP)#8211;infected pneumonia (NCIP): Status: Acute (2) Sepsis: Status: Acute (3) Acute respiratory failure with hypoxia: Status: Acute (4) Hyponatremia: Status: Acute Additional A&P Information Acute Hypoxic Respiratory failure - Likely due to COVID-19 pneumonia - Intubated on 09/12/20 -> Extubated 09/14 - Wean o2 as tolerated - Pulmonary recommendation noted CoV-19 Pneumonia - Started on Remdesivir 5 days protocol - Decadron 6 mg IV daily - Ferritin 4788 -> 3323 - Follow up on repeat - Pro-calcitonin 0.13 - Was started empirically on Rocephin 1 g daily - Azithromycin 500 mg IV daily - Remained afebrile - leukocytosis likely due to steroids - 09/09 - Blood culture x 2 - NGTD - 09/11 - Sputum culture - GS- Negative culture - pending - D -dimer -3.78- > 2.43 -> 2.19 On eliquis 2.5 mg PO BID - Qother day inflammatory marker trend Alcoholism with withdrawals - Currently sedation - PRN versed for seizure like activity Elevated LFTs - Etiology multi-factorial - AST 59 -> 29 - ALT 52 -> 37 Hx of Hypertension - Holding lisinopril/ metoprolol GI ppx - Pepcid 20 mg IV BID DVT ppx - Eliquis 2.5 mg PO BID Attestations Medical Necessity Statement*: Patient needs to be in hospital for the management of R/F 2/2 COVID PNA Coding Level of Care Code Acute Property Maintenance Technician for g Fwd Exam Detailed Diagnoses 2018 novel coronavirus–infected pneumonia (NCIP)#8211;infected pneumonia (NCIP) U07.1; J12.89 Sepsis A41.9 Acute respiratory failure with hypoxia J96.01 Hyponatremia E87.1
--- NOTE | 2020-09-15 15:50 | PM.PN ---
Subjective Subjective: Interval history: No acute event overnight. Currently saturating well on NC 8Ls oXygen Via NC. Other vitals and labs have been reviewed. 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 CHILDCARE ATTENDANT: Awake alert and following commands SKIN: no rash Urinary Catheter Management^: Schumacher: Cath Placed During This Visit: yes, but has since been removed by the nurse Reason for Continuing Indwelling Catheter: Does Not Meet Criteria Urinary Catheter Date of Insertion: 09/11/20 Urinary Catheter Time of Insertion: 12:40 Date Urinary Catheter Removed: 09/14/20 Time Urinary Catheter Discontinued: 13:00 Data : 09/16/20 04:00 09/16/20 04:00 Micro: Microbiology 09/09/20 20:59 Blood Culture - Final Blood NO GROWTH AFTER 5 DAYS 09/09/20 21:00 Blood Culture - Final Blood NO GROWTH AFTER 5 DAYS A&P Assessment and plan (1) Acute respiratory failure with hypoxia: Status: Acute (2) 2019 novel coronavirus–infected pneumonia (NCIP)#8211;infected pneumonia (NCIP): Status: Acute Overall: 54 year old male who does not have significant past medical history contracted COVID-19 pneumonia progressively worsening respiratory failure admitted to viral ICU for management of acute hypoxic respiratory failure secondary to acute respiratory distress syndrome due to COVID-19 pneumonia requiring mechanical ventilation to provide oxygenation. NEURO: #Chronic alcohol abuse - > 10 beers a day -Off sedation - Following commands -Closely monitor vitals to prevent withdrawals & delirium tremens - ativan prn PULM: #Acute hypoxic and hypercapneic respiratory failure secondary to ARDS due to COVID pna -Intubated on 09/11/2019 - extubated 09/14/19 -On 8L NC - Chest x-ray 09/12/2020:Diffuse bilateral pulmonary opacifications without significant improvement. -Increased inflammatory markers CRP, ferritin and repeat every 2 days to trend markers of inflammation -continue dexamethasone daily - IS/Acapella/physical therapy -Patient received adequate antibiotics coverage for 7 days - can discontinue CVS: -Hemodynamically stable -Off pressor -Monitor blood pressure -BNP 43 -Continue cardiac monitoring GI: -regular diet -Started senna docusate at bedtime for bowel regimen -Pepcid every 12 daily for GI prophylaxis -LFTs within normal limits RENAL: -Normal renal functions -Electrolytes within normal limits -Follow-up magnesium, phosphorus, and CK -Urine output good so far +400 mL since admission -Continue schumacher cath; for strict I&O monitoring -Avoid nephrotoxins -Monitor BUN/creatinine and electrolytes and supplement accordingly to keep K between 4-4.5, Mg >2 HEM: H&H stable Plts stable,will trend Coags stable DVT prophylaxis currently on Eliquis 2.5 twice daily ENDO: -No active issues -monitor sugars and insulin scale coverage ID: #Sepsis secondary to COVID pna -WBC 10 K -monitor - Afebrile -Procalcitonin 0.13 and lactic acid 1.7 -sputum cx negative; blood cultures negative so far -Can DC- Rocephin, azithromycin; Already received 7 days Prognosis: Guarded Disposition: can transfer to floor - As patient clinically improved - will sign off on the case and do not hesistate to re-consult if necessary Code: Full code Plan of care and recommendations conveyed to hospitalist on the case, RN and RT ICU CHECKLIST: Problem list updated Verbal orders reviewed and signed Analgesia: Fentanyl Glycemic Control: Not needed Nutrition: regular diet Restraint Renewal (within 24 hrs): Yes Ulcer Prophylaxis:PPI yes Chemical Thromboprophylaxis: Prophylaxis: On Elliquis Mechanical Thromboprophylaxis: Yes Need for Central line: No Need for Schumacher catheter: Yes for urine output monitoring Critical Care Time (No Overlap): 45 min This patient has a high probability of sudden, clinically significant deterioration, which requires the highest level of physician preparedness to intervene urgently. I managed/supervised life or organ supporting interventions that required frequent physician assessment. I devoted my full attention in the ICU to the direct care of this patient for the period of time indicated above. Time I spent with family or surrogate(s) is included only if the patient was incapable of providing necessary information or participating in decision making. Time devoted to teaching and to any procedures I billed separately is not included. Services Provided: Telemetry review Mechanical Ventilation Hemodynamic interpretation, assessment and management Review and interpretation of CXR Review and interpretation of lab values Review and interpretation of microbiologic data and culture results Review of medications and administration Review and interpretation of Nutrition requirements and management Discussion of management with other consultants and services Clinical update to family members Attestations Medical Necessity Statement*: Acute hypoxic respiratory failure secondary to COVID-19 pneumonia, extubated and currently requiring 7 to 8 L of nasal cannula. Pulmonary consult to floor and taper oxygen Time Spent in Patient Care: Greater than 35 minutes (>than 50% of time spent in counselling and/or direct pt care on unit). Critical Care Time: Critical Care Time (min): 45 Coding Level of Care Code Acute Hourly Shift Manager for [facility] Fwd Diagnoses Acute respiratory failure with hypoxia J96.01 2019 novel coronavirus–infected pneumonia (NCIP)#8211;infected pneumonia (NCIP) U07.1; J12.89
[2020-09-15] MEDS: acetaminophen 500 mg Tablet PO (21:51)
[2020-09-16] VITALS (33 sets, daily range): BP systolic 96–159; BP diastolic 64–102; PULSE 57–122; RESP 5–23; TEMP 36.6–37; O2SAT 86–97
[2020-09-16] MEDS: ipratropium-albuterol 3 mL Neb INHALATION (05:15)
[2020-09-16 05:41] LABS: Basophils % 0.1 %; Eosinophils # 0.1 10^3/uL (0.0-0.8); Eosinophils % 1.3 %; Hematocrit 40.5 % (42.0-52.0); Hemoglobin 13.5 g/dL (11.7-16.6); Lymphocytes # 0.9 10^3/uL (0.8-4.8); Lymphocytes % 8.5 %; Mean Corpuscular HGB Conc 33.3 g/dL (30.0-36.0); Mean Corpuscular Hemoglobin 34.4 pg (28.0-34.0); Mean Corpuscular Volume 103.3 fL (80-94); Mean Platelet Volume 9.2 fL (7.4-10.4); Monocytes # 0.7 10^3/uL (0.2-0.9); Neutrophils # 8.44 10^3/uL (1.8-7.7); Neutrophils % 81.9 %; Nucleated Red Blood Cells % 0 %; Platelet Count 223 10^3/cmm (130-400); Red Blood Count 3.92 10^6/uL (4.1-5.3); Red Cell Distribution Width 11.9 % (12.1-15.1); White Blood Count 10.3 10^3/uL (4.0-10.0)
[2020-09-16 06:11] LABS: Alanine Aminotransferase 31 U/L (0-41); Albumin Level 2.7 g/dL (3.5-5.2); Alkaline Phosphatase 78 IU/L (40-130); Blood Urea Nitrogen 8 mg/dL (6-20); Calcium 8.4 mg/dL (8.5-10.5); Carbon Dioxide 30 mmol/L (22-29); Chloride 97 mmol/L (98-107); Globulin 3.2 g/dL (1.3-4.6); Glomerular Filtration Rate 224.2 mL/min (90-130); Glucose 95 mg/dL (65-115); Magnesium 1.8 mg/dL (1.7-2.3); Osmolality Calculated 278 mOsm/kg (285-295); Sodium 135 mmol/L (136-145); Total Bilirubin 0.6 mg/dL (0.15-1.2); Total Protein 5.9 g/dL (6.6-8.7)
[2020-09-16 06:17] LABS: Anion Gap 11.9 (5-19); Aspartate Amino Transferase 29 U/L (0-40); Potassium 3.9 mmol/L (3.5-5.1)
[2020-09-16] MEDS: azithromycin 500 MG in sodium chloride 0.9% 250 ML 250 MG IV (08:41)
[2020-09-16] MEDS: cefTRIAXone 1,000 MG in sodium chloride 0.9% (plus) 50 ML 100 MG IV (08:41)
[2020-09-16] MEDS: dexamethasone 4 mg/mL INJ 6 MG IVP (08:55)
[2020-09-16] MEDS: apixaban 5 mg Tablet 2.5 MG PO (08:55)
[2020-09-16] MEDS: thiamine 100 mg Tablet PO (08:55)
[2020-09-16] MEDS: multivitamin therapeutic Tablet 1 TAB PO (08:56)
[2020-09-16] MEDS: folic acid 1 mg Tablet PO (08:56)
[2020-09-16] MEDS: albuterol 8 gm MDI 2 PUFF INHALATION ×3 (09:14→19:37)
--- NOTE | 2020-09-16 09:25 | PM.PN ---
Subjective Subjective: Interval history: is doing fine, he is complaining of cough,but deny any other complain. He has remained Afebrile, and is currently saturating well on 4 Ls oxygen Via NC. Other vitals and labs have been reviewed. Medications: Reviewed: Yes Vitals/I&O/Wt Last Vital Signs Temp 98.2 F 09/16/20 08:00 Pulse 122 H 09/16/20 09:19 Resp 18 09/16/20 09:16 BP 116/71 09/16/20 09:00 Pulse Ox 94 09/16/20 09:16 09/15/20 09/16/20 09/16/20 22:59 06:59 14:59 Intake Total 450 / 1780 200 / 1980 400 / 400 Output Total 300 / 300 0 / 0 Balance 150 / 1480 200 / 1680 400 / 400 Physical Exam Const: COMMON NORMALS: patient oriented x3 HENMT: COMMON NORMALS: normocephalic and atraumatic HEAD & SCALP: normocephalic and atraumatic Chest: COMMONS NORMALS: normal inspection of the chest and normal palpation of entire chest wall CHEST: Yes Symmetrical chest wall rise Resp: COMMON NORMALS: normal respiratory effort, No retractions, No use of accessory muscles and clear to auscultation bilaterally EFFORT & INSPECTION: Yes symmetric chest movement AUSCULTATION: clear to auscultation bilaterally Cardio: COMMON NORMALS: regular rate, regular rhythm, S1 normal heart sound present, S2 normal heart sound present, No gallops present (Cardio), No murmurs present (Cardio), No rub (Cardio) and Peripheral pulses 2+ throughout RATE: regular rate RHYTHM: regular rhythm HEART SOUNDS: S1 normal heart sound present and S2 normal heart sound present PERIPHERAL PULSES: Peripheral pulses 2+ throughout GI: COMMON NORMALS: Normal to inspection, nondistended, normoactive bowel sounds present, Soft to palpation, non-tender, No hepatosplenomegaly present and no masses AUSCULTATION: Yes normoactive bowel sounds PALPATION: Yes Soft to palpation and Yes No hepatosplenomegaly present RECTAL EXAM: Yes deferred Extremity: COMMON NORMALS: no clubbing, cyanosis or edema and no pedal edema Neuro: COMMON NORMALS: patient oriented x3 Urinary Catheter Management^: Guerra: Cath Placed During This Visit: yes, but has since been removed by the nurse Reason for Continuing Indwelling Catheter: Does Not Meet Criteria Urinary Catheter Date of Insertion: 09/11/20 Urinary Catheter Time of Insertion: 12:40 Date Urinary Catheter Removed: 09/14/20 Time Urinary Catheter Discontinued: 13:00 Data : 09/16/20 04:00 09/16/20 04:00 A&P Assessment and plan (1) 2019 novel coronavirus–infected pneumonia (NCIP)#8211;infected pneumonia (NCIP): Status: Acute (2) Sepsis: Status: Acute (3) Acute respiratory failure with hypoxia: Status: Acute (4) Hyponatremia: Status: Acute Additional A&P Information Acute Hypoxic Respiratory failure 2/2 COVID-19 pneumonia - Intubated on 09/12/20 -> Extubated 09/14 - Wean o2 as tolerated - Pulmonary recommendation noted CoV-19 Pneumonia - Completed Remdesivir 5 days protocol - Decadron 6 mg IV daily - Ferritin 4788 -> 3323 - Follow up on repeat - Pro-calcitonin 0.13 - Was started empirically on Rocephin 1 g daily - Azithromycin 500 mg IV daily - Remained afebrile - leukocytosis likely due to steroids - 09/09 - Blood culture x 2 - NGTD - 09/11 - Sputum culture - GS- Negative culture - pending - D -dimer -3.78- > 2.43 -> 2.19 On eliquis 2.5 mg PO BID - Qother day inflammatory marker trend Chronic Alcoholism Monitor CIWA Elevated LFTs - Etiology multi-factorial - AST 59 -> 29 - ALT 52 -> 37 Hx of Hypertension - Holding lisinopril/ metoprolol GI ppx - Pepcid 20 mg IV BID DVT ppx - Eliquis 2.5 mg PO BID Attestations Medical Necessity Statement*: Patient needs to be in hospital for the management of R/F 2/2 TO COVID PNA Coding Level of Care Code Acute Master Fisher for [facility] Fwd Exam Comprehensive Diagnoses 2019 novel coronavirus–infected pneumonia (NCIP)#8211;infected pneumonia (NCIP) U07.1; J12.89 Sepsis A41.9 Acute respiratory failure with hypoxia J96.01 Hyponatremia E87.1
[2020-09-16] MEDS: famotidine 20 mg/2 mL INJ IVP (16:41)
[2020-09-16] MEDS: simethicone 40 mg/0.6 mL Bottle 30mL PO (21:53)
[2020-09-17] VITALS (23 sets, daily range): BP systolic 116–165; BP diastolic 76–109; PULSE 59–112; RESP 16–29; TEMP 37–37.7; O2SAT 85–99
[2020-09-17] MEDS: albuterol 8 gm MDI 2 PUFF INHALATION ×2 (03:46→10:09)
[2020-09-17 04:40] LABS: Basophils % 0.1 %; Eosinophils # 0.1 10^3/uL (0.0-0.8); Eosinophils % 0.5 %; Hematocrit 45.9 % (42.0-52.0); Hemoglobin 15.4 g/dL (11.7-16.6); Lymphocytes # 0.8 10^3/uL (0.8-4.8); Lymphocytes % 7.3 %; Mean Corpuscular HGB Conc 33.6 g/dL (30.0-36.0); Mean Corpuscular Hemoglobin 34.5 pg (28.0-34.0); Mean Corpuscular Volume 102.9 fL (80-94); Mean Platelet Volume 8.9 fL (7.4-10.4); Monocytes # 0.7 10^3/uL (0.2-0.9); Neutrophils # 8.56 10^3/uL (1.8-7.7); Neutrophils % 83.8 %; Nucleated Red Blood Cells % 0 %; Platelet Count 208 10^3/cmm (130-400); Red Blood Count 4.46 10^6/uL (4.1-5.3); Red Cell Distribution Width 11.9 % (12.1-15.1); White Blood Count 10.2 10^3/uL (4.0-10.0)
[2020-09-17] MEDS: famotidine 20 mg/2 mL INJ IVP ×2 (04:57→16:05)
[2020-09-17] MEDS: simethicone 40 mg/0.6 mL Bottle 30mL PO ×2 (04:58→21:58)
[2020-09-17 05:10] LABS: Alanine Aminotransferase 38 U/L (0-41); Albumin Level 2.9 g/dL (3.5-5.2); Alkaline Phosphatase 86 IU/L (40-130); Anion Gap 11.2 (5-19); Aspartate Amino Transferase 21 U/L (0-40); Blood Urea Nitrogen 12 mg/dL (6-20); Carbon Dioxide 30 mmol/L (22-29); Chloride 94 mmol/L (98-107); Globulin 3.9 g/dL (1.3-4.6); Glomerular Filtration Rate 173.3 mL/min (90-130); Glucose 114 mg/dL (65-115); Magnesium 2.1 mg/dL (1.7-2.3); Osmolality Calculated 273 mOsm/kg (285-295); Potassium 4.2 mmol/L (3.5-5.1); Sodium 131 mmol/L (136-145); Total Bilirubin 0.8 mg/dL (0.15-1.2); Total Protein 6.8 g/dL (6.6-8.7)
--- NOTE | 2020-09-17 07:19 | PC.NURSE ---
OXYGEN Patient ambulates to the bathroom with standby assistance. Patient requires increased oxygen on exertion and desats to about 80%. Patient takes about 3-4 minutes to recover and then oxygen stabilizes and patient is turned back down to 3L HFNC.
--- NOTE | 2020-09-17 07:21 | PC.NURSE ---
SHIFT SUMMARY Patient has been on 3L HFNC this shift. Ambulated to bathroom and voided twice. See previous note regarding oxygenation and increased demand with exertion. Patient is alert and oriented x 4 and has been pleasant this shift. Gas drops ordered per Dr. Mcnally for flatulence.
[2020-09-17] MEDS: cefTRIAXone 1,000 MG in sodium chloride 0.9% (plus) 50 ML 100 MG IV (09:28)
[2020-09-17] MEDS: azithromycin 500 MG in sodium chloride 0.9% 250 ML 250 MG IV (09:28)
[2020-09-17] MEDS: dexamethasone 4 mg/mL INJ 6 MG IVP (09:29)
[2020-09-17] MEDS: apixaban 5 mg Tablet 2.5 MG PO ×2 (09:29→17:16)
[2020-09-17] MEDS: folic acid 1 mg Tablet PO (09:30)
[2020-09-17] MEDS: thiamine 100 mg Tablet PO (09:30)
[2020-09-17] MEDS: multivitamin therapeutic Tablet 1 TAB PO (09:30)
--- NOTE | 2020-09-17 16:30 | PC.NURSE ---
patient transferred from [facility] to [facility], this nurse assumed care of patient, patient resting in bed, call light in reach, vitals stable as charted, oriented to new room, denies pain, reports dizziness with ambulation, this nurse instructed patient to use call light for nursing staff assistance prior to ambulation or getting out of bed for standby assistance, verbalized understanding. Provided clean urinal for UA order. patient denies further questions or concerns.
--- NOTE | 2020-09-17 18:40 | P.PN_ITS ---
Subjective Subjective: Interval history: No acute event overnight.Vitals and labs have been reviewed. Currently saturating well on 2-3 Ls oxygen via NC Medications: Reviewed: Yes Vitals/I&O/Wt Last Vital Signs Temp 98.9 F 09/17/20 16:49 Pulse 87 09/17/20 16:49 Resp 20 H 09/17/20 16:49 BP 145/76 09/17/20 16:49 Pulse Ox 99 09/17/20 16:49 09/17/20 09/17/20 09/17/20 06:59 14:59 22:59 Intake Total 800 / 800 240 / 1040 Balance 800 / 800 240 / 1040 Physical Exam Const: COMMON NORMALS: patient oriented x3 HENMT: COMMON NORMALS: normocephalic and atraumatic HEAD & SCALP: normocephalic and atraumatic Chest: COMMONS NORMALS: normal inspection of the chest and normal palpation of entire chest wall CHEST: Yes Symmetrical chest wall rise Resp: COMMON NORMALS: normal respiratory effort, No retractions, No use of accessory muscles and clear to auscultation bilaterally EFFORT & INSPECTION: Yes symmetric chest movement AUSCULTATION: clear to auscultation bilaterally Cardio: COMMON NORMALS: regular rate, regular rhythm, S1 normal heart sound present, S2 normal heart sound present, No gallops present (Cardio), No murmurs present (Cardio), No rub (Cardio) and Peripheral pulses 2+ throughout RATE: regular rate RHYTHM: regular rhythm HEART SOUNDS: S1 normal heart sound present and S2 normal heart sound present PERIPHERAL PULSES: Peripheral pulses 2+ throughout GI: COMMON NORMALS: Normal to inspection, nondistended, normoactive bowel sounds present, Soft to palpation, non-tender, No hepatosplenomegaly present and no masses AUSCULTATION: Yes normoactive bowel sounds PALPATION: Yes Soft to palpation and Yes No hepatosplenomegaly present RECTAL EXAM: Yes deferred Extremity: COMMON NORMALS: no clubbing, cyanosis or edema and no pedal edema Neuro: COMMON NORMALS: patient oriented x3 Urinary Catheter Management^: Guerra: Cath Placed During This Visit: yes, but has since been removed by the nurse Reason for Continuing Indwelling Catheter: Does Not Meet Criteria Urinary Catheter Date of Insertion: 09/11/20 Urinary Catheter Time of Insertion: 12:40 Date Urinary Catheter Removed: 09/14/20 Time Urinary Catheter Discontinued: 13:00 Data : 09/18/20 03:47 09/18/20 03:47 A&P Assessment and plan (1) 2019 novel coronavirus–infected pneumonia (NCIP)#8211;infected pneumonia (NCIP): Status: Acute (2) Sepsis: Status: Acute (3) Acute respiratory failure with hypoxia: Status: Acute (4) Hyponatremia: Status: Acute Additional A&P Information Acute Hypoxic Respiratory failure 2/2 COVID-19 pneumonia - Intubated on 09/12/20 -> Extubated 09/14 - Wean o2 as tolerated - Pulmonary recommendation noted CoV-19 Pneumonia - Completed Remdesivir 5 days protocol - Decadron 6 mg IV daily - Ferritin 4788 -> 3323 - Follow up on repeat - Pro-calcitonin 0.13 - Was started empirically on Rocephin 1 g daily - Azithromycin 500 mg IV daily - Remained afebrile - leukocytosis likely due to steroids - 09/09 - Blood culture x 2 - NGTD - 09/11 - Sputum culture - GS- Negative culture - pending - D -dimer -3.78- > 2.43 -> 2.19 On eliquis 2.5 mg PO BID - Qother day inflammatory marker trend Chronic Alcoholism Monitor CIWA Elevated LFTs - Etiology multi-factorial - AST 59 -> 29 - ALT 52 -> 37 Hx of Hypertension - Holding lisinopril/ metoprolol GI ppx - Pepcid 20 mg IV BID DVT ppx - Eliquis 2.5 mg PO BID Attestations Medical Necessity Statement*: Patient needs to be in hospital for the management of covid PNA. Coding Level of Care Code Acute Sash Clamp Operator for [facility] Fwd Diagnoses 2019 novel coronavirus–infected pneumonia (NCIP)#8211;infected pneumonia (NCIP) U07.1; J12.89 Sepsis A41.9 Acute respiratory failure with hypoxia J96.01 Hyponatremia E87.1
[2020-09-17 20:15] LABS: Urine Random Sodium 116 mmol/L
[2020-09-17] MEDS: acetaminophen 500 mg Tablet PO (21:56)
[2020-09-18] VITALS (12 sets, daily range): BP systolic 129–165; BP diastolic 77–103; PULSE 60–91; RESP 16–24; TEMP 35.8–37.1; O2SAT 90–95
[2020-09-18 03:56] LABS: Basophils % 0.2 %; Eosinophils % 0.3 %; Hematocrit 36.1 % (42.0-52.0); Hemoglobin 12.3 g/dL (11.7-16.6); Lymphocytes # 0.8 10^3/uL (0.8-4.8); Lymphocytes % 8.5 %; Mean Corpuscular HGB Conc 34.1 g/dL (30.0-36.0); Mean Corpuscular Hemoglobin 34.7 pg (28.0-34.0); Mean Platelet Volume 9.2 fL (7.4-10.4); Monocytes # 0.9 10^3/uL (0.2-0.9); Monocytes % 8.9 %; Neutrophils % 81.1 %; Nucleated Red Blood Cells % 0 %; Platelet Count 146 10^3/cmm (130-400); Red Blood Count 3.54 10^6/uL (4.1-5.3); Red Cell Distribution Width 11.9 % (12.1-15.1); White Blood Count 9.8 10^3/uL (4.0-10.0)
[2020-09-18] MEDS: famotidine 20 mg/2 mL INJ IVP ×2 (04:15→17:07)
[2020-09-18] MEDS: acetaminophen 500 mg Tablet PO ×3 (04:16→21:45)
[2020-09-18 04:17] LABS: Alanine Aminotransferase 26 U/L (0-41); Albumin Level 2.2 g/dL (3.5-5.2); Alkaline Phosphatase 59 IU/L (40-130); Anion Gap 8.9 (5-19); Aspartate Amino Transferase 15 U/L (0-40); Blood Urea Nitrogen 12 mg/dL (6-20); Calcium 7.3 mg/dL (8.5-10.5); Carbon Dioxide 27 mmol/L (22-29); Chloride 103 mmol/L (98-107); Globulin 2.7 g/dL (1.3-4.6); Glomerular Filtration Rate 173.3 mL/min (90-130); Glucose 111 mg/dL (65-115); Magnesium 1.7 mg/dL (1.7-2.3); Osmolality Calculated 280 mOsm/kg (285-295); Potassium 3.9 mmol/L (3.5-5.1); Sodium 135 mmol/L (136-145); Total Bilirubin 0.4 mg/dL (0.15-1.2); Total Protein 4.9 g/dL (6.6-8.7)
[2020-09-18] MEDS: cefTRIAXone 1,000 MG in sodium chloride 0.9% (plus) 50 ML 100 MG IV (08:32)
[2020-09-18] MEDS: multivitamin therapeutic Tablet 1 TAB PO (08:32)
[2020-09-18] MEDS: apixaban 5 mg Tablet 2.5 MG PO (08:33)
[2020-09-18] MEDS: thiamine 100 mg Tablet PO (08:33)
[2020-09-18] MEDS: dexamethasone 4 mg/mL INJ 6 MG IVP (08:33)
[2020-09-18] MEDS: folic acid 1 mg Tablet PO (08:33)
[2020-09-18] MEDS: albuterol 8 gm MDI 2 PUFF INHALATION ×3 (08:43→20:08)
[2020-09-18] MEDS: azithromycin 500 MG in sodium chloride 0.9% 250 ML 250 MG IV (09:23)
--- NOTE | 2020-09-18 13:50 | P.PN_ITS ---
Subjective Subjective: Interval history: Patient was complaining of hematuria.He was also slightly dizzy when he moved around. His other vitals and labs have been reviewed. Medications: Reviewed: Yes Vitals/I&O/Wt Last Vital Signs Temp 97.8 F 09/18/20 12:00 Pulse 82 09/18/20 12:00 Resp 16 09/18/20 12:00 BP 156/86 09/18/20 12:00 Pulse Ox 94 09/18/20 12:00 09/17/20 09/18/20 09/18/20 22:59 06:59 14:59 Intake Total 720 / 1820 720 / 720 Output Total 1200 / 1200 0 / 1200 Balance -480 / 620 0 / 620 720 / 720 Physical Exam Const: COMMON NORMALS: patient oriented x3 HENMT: COMMON NORMALS: normocephalic and atraumatic HEAD & SCALP: normocephalic and atraumatic Chest: COMMONS NORMALS: normal inspection of the chest CHEST: Yes Symmetrical chest wall rise Resp: COMMON NORMALS: No use of accessory muscles and clear to auscultation bilaterally EFFORT & INSPECTION: Yes symmetric chest movement AUSCULTATION: clear to auscultation bilaterally Cardio: COMMON NORMALS: regular rate, regular rhythm, S1 normal heart sound present, S2 normal heart sound present, No gallops present (Cardio), No murmurs present (Cardio), No rub (Cardio) and Peripheral pulses 2+ throughout RATE: regular rate RHYTHM: regular rhythm HEART SOUNDS: S1 normal heart sound present and S2 normal heart sound present PERIPHERAL PULSES: Peripheral pulses 2+ throughout GI: COMMON NORMALS: Normal to inspection, nondistended, normoactive bowel sounds present, Soft to palpation, non-tender, No hepatosplenomegaly present and no masses AUSCULTATION: Yes normoactive bowel sounds PALPATION: Yes Soft to palpation and Yes No hepatosplenomegaly present RECTAL EXAM: Yes deferred Extremity: COMMON NORMALS: no clubbing, cyanosis or edema and no pedal edema Neuro: COMMON NORMALS: patient oriented x3 Urinary Catheter Management^: Guerra: Cath Placed During This Visit: yes, but has since been removed by the nurse Reason for Continuing Indwelling Catheter: Does Not Meet Criteria Urinary Catheter Date of Insertion: 09/11/20 Urinary Catheter Time of Insertion: 12:40 Date Urinary Catheter Removed: 09/14/20 Time Urinary Catheter Discontinued: 13:00 Data : 09/18/20 03:47 09/18/20 03:47 A&P Assessment and plan (1) 2019 novel coronavirus–infected pneumonia (NCIP)#8211;infected pneumonia (NCIP): Status: Acute (2) Sepsis: Status: Acute (3) Acute respiratory failure with hypoxia: Status: Acute (4) Hyponatremia: Status: Acute (5) Hematuria: Status: Acute Additional A&P Information Acute Hypoxic Respiratory failure 2/2 COVID-19 pneumonia - Intubated on 09/12/20 -> Extubated 09/14 - Wean o2 as tolerated - Pulmonary recommendation noted CoV-19 Pneumonia - Completed Remdesivir 5 days protocol - Decadron 6 mg IV daily - Ferritin 4788 -> 3323 - Follow up on repeat - Pro-calcitonin 0.13 - Was started empirically on Rocephin 1 g daily - Azithromycin 500 mg IV daily - Remained afebrile - leukocytosis likely due to steroids - 09/09 - Blood culture x 2 - NGTD - 09/11 - Sputum culture - GS- Negative culture - pending - D -dimer -3.78- > 2.43 -> 2.19 On eliquis 2.5 mg PO BID - Qother day inflammatory marker trend Chronic Alcoholism Monitor CIWA Hematuria : -Monitor H/H -DC Eliquis Elevated LFTs - Etiology multi-factorial - AST 59 -> 29 - ALT 52 -> 37 Hx of Hypertension - Holding lisinopril/ metoprolol GI ppx - Pepcid 20 mg IV BID DVT ppx - Eliquis 2.5 mg PO BID DC due to concern for hematuria. Attestations Medical Necessity Statement*: Patient needs to be in hospital for the management of R/F 2/2 TO PNA . Coding Level of Care Code Acute Underground Distribution Engineer for g Fwd Exam Detailed Diagnoses 2019 novel coronavirus–infected pneumonia (NCIP)#8211;infected pneumonia (NCIP) U07.1; J12.89 Sepsis A41.9 Acute respiratory failure with hypoxia J96.01 Hyponatremia E87.1 Hematuria R31.9
[2020-09-18] MEDS: simethicone 40 mg/0.6 mL Bottle 30mL PO ×2 (14:51→21:46)
[2020-09-19] VITALS (12 sets, daily range): BP systolic 121–170; BP diastolic 73–95; PULSE 65–88; RESP 16–18; TEMP 35.8–37.2; O2SAT 91–98
[2020-09-19] MEDS: labetalol 5 mg/mL SDV 20mL 10 MG IVP (00:07)
[2020-09-19] MEDS: famotidine 20 mg/2 mL INJ IVP ×2 (04:21→15:30)
[2020-09-19] MEDS: albuterol 8 gm MDI 2 PUFF INHALATION ×2 (09:00→20:53)
[2020-09-19] MEDS: cefTRIAXone 1,000 MG in sodium chloride 0.9% (plus) 50 ML 100 MG IV (09:47)
[2020-09-19] MEDS: multivitamin therapeutic Tablet 1 TAB PO (09:48)
[2020-09-19] MEDS: dexamethasone 4 mg/mL INJ 6 MG IVP (09:48)
[2020-09-19] MEDS: folic acid 1 mg Tablet PO (09:48)
[2020-09-19] MEDS: thiamine 100 mg Tablet PO (09:48)
[2020-09-19] MEDS: levothyroxine 50 mcg Tablet PO (10:10)
[2020-09-19] MEDS: metoprolol succinate ER (24 HR) 50 mg Tablet PO (10:10)
[2020-09-19] MEDS: lisinopril 20 mg Tablet PO (10:10)
[2020-09-19] MEDS: azithromycin 500 MG in sodium chloride 0.9% 250 ML 250 MG IV (10:42)
[2020-09-19] MEDS: acetaminophen 500 mg Tablet PO ×2 (10:43→21:30)
--- NOTE | 2020-09-19 12:27 | P.PN_ITS ---
Subjective Subjective: Interval history: was complaining of some epistaxsis this morning.He is also complaining that he get easily winded with even minimal exertion.So far his oxygen saturation has been well maintained on 3ls oxygen via NC. His H/H has remained stable and he is no longer complaining of hematuria. He has developed husky voice post extubation.Speech was consulted and they are of the opinion to have ENT evaluation as outpatient or inpatient. He has remained afebrile. All his other labs and vitals have remained stable. Medications: Reviewed: Yes Vitals/I&O/Wt Last Vital Signs Temp 97.8 F 09/19/20 11:09 Pulse 87 09/19/20 11:09 Resp 17 09/19/20 11:09 BP 143/87 09/19/20 11:09 Pulse Ox 93 09/19/20 11:09 09/18/20 09/19/20 09/19/20 22:59 06:59 14:59 Intake Total 480 / 1500 600 / 600 Output Total 700 / 700 Balance 480 / 1500 -100 / -100 Physical Exam Const: COMMON NORMALS: patient oriented x3 HENMT: COMMON NORMALS: normocephalic and atraumatic HEAD & SCALP: normocephalic and atraumatic Chest: CHEST: Yes Symmetrical chest wall rise Resp: COMMON NORMALS: normal respiratory effort, No retractions, No use of accessory muscles and clear to auscultation bilaterally EFFORT & INSPECTION: Yes symmetric chest movement AUSCULTATION: clear to auscultation bilaterally Cardio: COMMON NORMALS: regular rate, regular rhythm, S1 normal heart sound present, S2 normal heart sound present, No gallops present (Cardio), No murmurs present (Cardio), No rub (Cardio) and Peripheral pulses 2+ throughout RATE: regular rate RHYTHM: regular rhythm HEART SOUNDS: S1 normal heart sound present and S2 normal heart sound present PERIPHERAL PULSES: Peripheral pulses 2+ throughout GI: COMMON NORMALS: Normal to inspection, nondistended, normoactive bowel sounds present, Soft to palpation, non-tender, No hepatosplenomegaly present and no masses AUSCULTATION: Yes normoactive bowel sounds PALPATION: Yes Soft to palpation and Yes No hepatosplenomegaly present RECTAL EXAM: Yes deferred Extremity: COMMON NORMALS: no clubbing, cyanosis or edema and no pedal edema Neuro: COMMON NORMALS: patient oriented x3 Urinary Catheter Management^: Guerra: Cath Placed During This Visit: yes, but has since been removed by the nurse Reason for Continuing Indwelling Catheter: Does Not Meet Criteria Urinary Catheter Date of Insertion: 09/11/20 Urinary Catheter Time of Insertion: 12:40 Date Urinary Catheter Removed: 09/14/20 Time Urinary Catheter Discontinued: 13:00 Data : 09/18/20 03:47 09/18/20 03:47 A&P Assessment and plan (1) 2019 novel coronavirus–infected pneumonia (NCIP)#8211;infected pneumonia (NCIP): Status: Acute (2) Sepsis: Status: Acute (3) Acute respiratory failure with hypoxia: Status: Acute (4) Hyponatremia: Status: Acute (5) Hematuria: Status: Acute Additional A&P Information Acute Hypoxic Respiratory failure 2/ COVID-19 pneumonia - Intubated on 09/12/20 -> Extubated 09/14 - Wean o2 as tolerated - Pulmonary recommendation noted CoV-19 Pneumonia - Completed Remdesivir 5 days protocol - Completed Decadron coure -Currently on 5 days course of prednisone 20 mg po daily - Ferritin 4788 -> 3323 - Follow up on repeat - Pro-calcitonin 0.13 - Was empirically on Rocephin 1 g daily Discontinued on 09/20 - Azithromycin 500 mg IV daily Discontinued on 09/20 - 09/09 - Blood culture x 2 - NGTD - 09/11 - Sputum culture - GS- Negative culture - pending - D -dimer -3.78- > 2.43 -> 2.19 - Initially on eliquis 2.5 mg PO BID ( DC ) Post Intubation Speech disorder He has developed husky voice post extubation.Speech was consulted and they are of the opinion to have ENT evaluation as outpatient or inpatient. We have requested inpatient evaluation. Chronic Alcoholism Monitor CIWA Hematuria : -Monitor H/H -DC Eliquis Elevated LFTs - Etiology multi-factorial - AST 59 -> 29 - ALT 52 -> 37 Hx of Hypertension lisinopril/ metoprolol home dose GI ppx - Pepcid 20 mg IV BID DVT ppx - Eliquis 2.5 mg PO BID DC due to concern for hematuria and epistaxsis Attestations Medical Necessity Statement*: Patient needs to be in hospital for the management of Post COVID syndrome. 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
--- NOTE | 2020-09-19 12:53 | PC.PT ---
pt/nurse reports indep gait to / from bathroom, instructed in standing HEP. all questions answered, no therapy needed currently. D/C PT
[2020-09-19 16:13] LABS: Osmolality Urine 656 mOsm/kg (50-1200)
[2020-09-19] MEDS: simethicone 40 mg/0.6 mL Bottle 30mL PO (21:29)
[2020-09-20] VITALS (11 sets, daily range): BP systolic 124–174; BP diastolic 83–102; PULSE 59–83; RESP 16–18; TEMP 36.5–37; O2SAT 80–97
[2020-09-20] MEDS: famotidine 20 mg/2 mL INJ IVP ×2 (05:00→16:22)
[2020-09-20] MEDS: levothyroxine 50 mcg Tablet PO (05:04)
[2020-09-20] MEDS: albuterol 8 gm MDI 2 PUFF INHALATION (07:55)
[2020-09-20] MEDS: predniSONE 20 mg Tablet PO (08:25)
[2020-09-20] MEDS: metoprolol succinate ER (24 HR) 50 mg Tablet PO (08:25)
[2020-09-20] MEDS: thiamine 100 mg Tablet PO (08:25)
[2020-09-20] MEDS: folic acid 1 mg Tablet PO (08:26)
[2020-09-20] MEDS: lisinopril 20 mg Tablet PO (08:26)
[2020-09-20] MEDS: multivitamin therapeutic Tablet 1 TAB PO (08:26)
--- NOTE | 2020-09-20 15:07 | PM.PN ---
Subjective Subjective: Interval history: is no longer having epsitaxsis as well hematuria.He is still needing 3Ls oxygen via NC at rest as well as 5Ls oxygen with exertion. His all other labs and vitals have been reviewed. Medications: Reviewed: Yes Vitals/I&O/Wt Last Vital Signs Temp 97.7 F 09/20/20 12:00 Pulse 82 09/20/20 14:00 Resp 18 09/20/20 12:00 BP 139/84 09/20/20 12:00 Pulse Ox 80 L 09/20/20 14:07 09/20/20 09/20/20 09/20/20 06:59 14:59 22:59 Intake Total 360 / 360 Output Total 750 / 1675 Balance -750 / -115 360 / 360 Physical Exam Const: COMMON NORMALS: patient oriented x3 HENMT: COMMON NORMALS: normocephalic and atraumatic HEAD & SCALP: normocephalic and atraumatic Chest: CHEST: Yes Symmetrical chest wall rise Resp: COMMON NORMALS: normal respiratory effort, No retractions, No use of accessory muscles and clear to auscultation bilaterally EFFORT & INSPECTION: Yes symmetric chest movement AUSCULTATION: clear to auscultation bilaterally Cardio: COMMON NORMALS: regular rate, regular rhythm, S1 normal heart sound present, S2 normal heart sound present, No gallops present (Cardio), No murmurs present (Cardio), No rub (Cardio) and Peripheral pulses 2+ throughout RATE: regular rate RHYTHM: regular rhythm HEART SOUNDS: S1 normal heart sound present and S2 normal heart sound present PERIPHERAL PULSES: Peripheral pulses 2+ throughout GI: COMMON NORMALS: Normal to inspection, nondistended, normoactive bowel sounds present, Soft to palpation, non-tender, No hepatosplenomegaly present and no masses AUSCULTATION: Yes normoactive bowel sounds PALPATION: Yes Soft to palpation and Yes No hepatosplenomegaly present RECTAL EXAM: Yes deferred Extremity: COMMON NORMALS: no clubbing, cyanosis or edema and no pedal edema Neuro: COMMON NORMALS: patient oriented x3 Urinary Catheter Management^: Guerra: Cath Placed During This Visit: yes, but has since been removed by the nurse Reason for Continuing Indwelling Catheter: Does Not Meet Criteria Urinary Catheter Date of Insertion: 09/11/20 Urinary Catheter Time of Insertion: 12:40 Date Urinary Catheter Removed: 09/14/20 Time Urinary Catheter Discontinued: 13:00 Data : 09/18/20 03:47 09/18/20 03:47 A&P Assessment and plan (1) 2019 novel coronavirus–infected pneumonia (NCIP)#8211;infected pneumonia (NCIP): Status: Acute (2) Sepsis: Status: Acute (3) Acute respiratory failure with hypoxia: Status: Acute (4) Hyponatremia: Status: Acute (5) Hematuria: Status: Acute Additional A&P Information Acute Hypoxic Respiratory failure 2/2 COVID-19 pneumonia - Intubated on 09/12/20 -> Extubated 09/14 - Wean o2 as tolerated - Pulmonary recommendation noted CoV-19 Pneumonia - Completed Remdesivir 5 days protocol - Completed Decadron coure -Currently on 5 days course of prednisone 20 mg po daily - Ferritin 4788 -> 3323 - Follow up on repeat - Pro-calcitonin 0.13 - Was empirically on Rocephin 1 g daily Discontinued on 09/20 - Azithromycin 500 mg IV daily Discontinued on 09/20 - 09/09 - Blood culture x 2 - NGTD - 09/11 - Sputum culture - GS- Negative culture - pending - D -dimer -3.78- > 2.43 -> 2.19 - Initially on eliquis 2.5 mg PO BID ( DC ) Post Intubation Speech disorder He has developed husky voice post extubation.Speech was consulted and they are of the opinion to have ENT evaluation as outpatient or inpatient. We have requested inpatient evaluation. 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
[2020-09-21] VITALS (8 sets, daily range): BP systolic 139–165; BP diastolic 84–94; PULSE 62–93; RESP 16–20; TEMP 36.6–36.7; O2SAT 93–97
[2020-09-21 02:42] LABS: Basophils # 0.1 10^3/uL (0.0-0.1); Basophils % 0.4 %; Eosinophils # 0.2 10^3/uL (0.0-0.8); Eosinophils % 1.1 %; Hematocrit 41.5 % (42.0-52.0); Hemoglobin 13.7 g/dL (11.7-16.6); Lymphocytes # 2.1 10^3/uL (0.8-4.8); Lymphocytes % 16.3 %; Mean Corpuscular Hemoglobin 34.1 pg (28.0-34.0); Mean Corpuscular Volume 103.2 fL (80-94); Mean Platelet Volume 9.5 fL (7.4-10.4); Monocytes # 1.7 10^3/uL (0.2-0.9); Monocytes % 13.1 %; Neutrophils # 8.77 10^3/uL (1.8-7.7); Neutrophils % 67.3 %; Nucleated Red Blood Cells % 0 %; Platelet Count 174 10^3/cmm (130-400); Red Blood Count 4.02 10^6/uL (4.1-5.3); White Blood Count 13.1 10^3/uL (4.0-10.0)
[2020-09-21 03:32] LABS: Blood Urea Nitrogen 13 mg/dL (6-20); Calcium 7.8 mg/dL (8.5-10.5); Carbon Dioxide 26 mmol/L (22-29); Chloride 103 mmol/L (98-107); Glomerular Filtration Rate 140.4 mL/min (90-130); Glucose 103 mg/dL (65-115); Osmolality Calculated 282 mOsm/kg (285-295); Sodium 136 mmol/L (136-145)
[2020-09-21 03:34] LABS: Anion Gap 12.4 (5-19); Potassium 5.4 mmol/L (3.5-5.1)
[2020-09-21] MEDS: famotidine 20 mg/2 mL INJ IVP (04:06)
--- NOTE | 2020-09-21 04:53 | NUR.SHIFT ---
This nurse was able to titrate down the patient's NC from 5L to 3L and have his SpO2 stay above 93%. This nurse asked the patient, that the next time needed to leave the bed, to notify this nurse, which this nurse can monitor his SpO2 during activity. Patient mainly slept through the night.
[2020-09-21] MEDS: levothyroxine 50 mcg Tablet PO (05:24)
[2020-09-21] MEDS: metoprolol succinate ER (24 HR) 50 mg Tablet PO (08:21)
[2020-09-21] MEDS: lisinopril 20 mg Tablet PO (08:21)
[2020-09-21] MEDS: predniSONE 20 mg Tablet PO (08:21)
[2020-09-21] MEDS: folic acid 1 mg Tablet PO (08:21)
[2020-09-21] MEDS: multivitamin therapeutic Tablet 1 TAB PO (08:21)
[2020-09-21] MEDS: thiamine 100 mg Tablet PO (08:21)
[2020-09-21] MEDS: dexamethasone 4 mg/mL INJ 6 MG IVP (08:22)
[2020-09-21] MEDS: albuterol 8 gm MDI 2 PUFF INHALATION (09:45)
--- NOTE | 2020-09-21 11:35 | P.DS_ITS ---
Discharge Providers Date of Admission: 09/09/20 20:48 Date of Discharge: September 21, 2020 Attending Provider at Admission: Best Zamarripa MD Attending Provider at Discharge: Guy Moore MD Primary Care Provider: Mirna Zavala APN Diagnoses at Discharge Discharge Diagnosis (1) 2019 novel coronavirus–infected pneumonia (NCIP)#8211;infected pneumonia (NCIP): Status: Resolved (2) Sepsis: Status: Resolved (3) Acute respiratory failure with hypoxia: Status: Chronic Reason for Visit Reason for Visit: low o2/chest tightness Hospital Course Hospital Course 54 year old male with PMH of chronic alcoholism came in with chief complaint of worsening shortness of breath. Patient contracted COVID-19 pneumonia on 08/20, was treated with steroids only at home, his symptoms started getting worse in last few days prior to admission , on the day of admission he was getting more short of breath, his O2 saturation was normal 2 weeks ago and now below 90% at home, he has not required any oxygenation until admission day, he was also experiencing diarrhea 3-4 episodes a day, no active chest pain, he is bringing clear sputum with his cough, no orthopnea, PND, leg swelling.His PCP prescribed Levaquin, he has taken 3 doses so far. His symptoms were not improving hence he decided to come to the ED for further evaluation. During this hospital stay he was admitted for management of ARDS secondary to Covid pneumonia, he was initially kept on noninvasive ventilation but as the patient was not tolerating noninvasive modes of ventilation he was getting agitated was not very coop erative with high flow oxygen through nasal cannula and was desaturating, he was intubated on 09/11, and put on mechanical ventilation.Eventually patient was extubated on 09/14. He completed the Covid cocktail (5 days of remdesivir, dexamethasone 6 mg IV daily, was empirically covered with broad-spectrum antibiotics.He was on Eliquis 2.5 mg q12 h daily, towards the end of his hospital stay, was complaining of some hematuria and epistaxis, hence Eliquis was held, and he is not being discharged on Eliquis.) at the time of discharge, he is requiring 3 L oxygen on rest, and 5 L oxygen with exertion. He was also managed for alcohol withdrawal during this hospital stay. He has also developed husky voice postextubation, speech was consulted and they are of the opinion that he should follow Dr. Gan ( ENT ) as outpatient. Patient will also follow pulmonary medicine as outpatient. He is being discharged in stable condition. Pertinent imaging study: CT angio chest PE protcl: 1. The study is limited due to patient respiratory motion. 2. No evidence of pulmonary embolism. 3. No evidence of aortic dissection. 4. Diffuse bilateral ground-glass infiltrates. Areas of consolidation are seen in the posterior portions of the lower lobes. Commonly reported imaging features of COVID-19 pneumonia are present. Other processes such as influenza pneumonia and organizing pneumonia, as can be seen with drug toxicity and connective tissue disease, can cause a similar imaging pattern. (Reference: Burak) 5. Mild degenerative spine changes. There is a 1.2 x 2.8 cm fat density right adrenal nodule, consistent with benign myelolipoma. The left adrenal gland is unremarkable. Blood Culture: Negative Sputum Culture : Negative Physical Exam Const: COMMON NORMALS: patient oriented x3 HENMT: COMMON NORMALS: normocephalic and atraumatic HEAD & SCALP: normocephalic and atraumatic Chest: COMMONS NORMALS: normal inspection of the chest and normal palpation of entire chest wall CHEST: Yes Symmetrical chest wall rise Resp: COMMON NORMALS: normal respiratory effort, No retractions, No use of accessory muscles and clear to auscultation bilaterally EFFORT & INSPECTION: Yes symmetric chest movement AUSCULTATION: clear to auscultation bilaterally Cardio: COMMON NORMALS: regular rate, regular rhythm, S1 normal heart sound present, S2 normal heart sound present, No gallops present (Cardio), No murmurs present (Cardio), No rub (Cardio) and Peripheral pulses 2+ throughout RATE: regular rate RHYTHM: regular rhythm HEART SOUNDS: S1 normal heart sound present and S2 normal heart sound present PERIPHERAL PULSES: Peripheral pulses 2+ throughout GI: COMMON NORMALS: Normal to inspection, nondistended, normoactive bowel sounds present, Soft to palpation, non-tender, No hepatosplenomegaly present and no masses AUSCULTATION: Yes normoactive bowel sounds PALPATION: Yes Soft to palpation and Yes No hepatosplenomegaly present RECTAL EXAM: Yes deferred Extremity: COMMON NORMALS: no clubbing, cyanosis or edema and no pedal edema Neuro: COMMON NORMALS: patient oriented x3 Urinary Catheter Management^: Guerra: Cath Placed During This Visit: yes, but has since been removed by the nurse Reason for Continuing Indwelling Catheter: Does Not Meet Criteria Urinary Catheter Date of Insertion: 09/11/20 Urinary Catheter Time of Insertion: 12:40 Date Urinary Catheter Removed: 09/14/20 Time Urinary Catheter Discontinued: 13:00 Discharge Data Data Completed and Pending: Completed Studies During Hospitalization Category Date Time Status CT angio chest PE protcl [id number] Urge nt Cat Scan 09/09/20 18:03 Completed CXRP [XR chest 1V portable [id number]] R outine Exams 09/11/20 11:33 Completed XR chest 1V bhumi ble [id number] Routine Exams 09/12/20 07:00 Completed XR chest 1V bhumi ble [id number] Routine Exams 09/14/20 07:00 Completed XR chest 1V bhumi ble [id number] Stat Exams 09/10/20 09:09 Completed XR chest 1V bhumi ble [id number] Urgent Exams 09/09/20 18:03 Completed Pending at discharge Category Date Time Status Arterial Blood Ga s W/O Coox AM LABS Lab 09/11/20 04:00 Ordered Arterial Blood Ga s W/O Coox AM LABS Lab 09/14/20 04:00 Ordered Basic Metabolic P haroldo AM LABS Lab 09/22/20 04:00 Ordered Basic Metabolic P haroldo AM LABS Lab 09/23/20 04:00 Ordered CBC Auto Diff [Co mplete Blood Count w/Auto] AM LABS Lab 09/22/20 04:00 Ordered CBC Auto Diff [Co mplete Blood Count w/Auto] AM LABS Lab 09/23/20 04:00 Ordered Labs from last 24 hours 09/21/20 09/21/20 09/18/20 02:38 02:30 10:34 WBC 13.1 H RBC 4.02 L Hgb 13.7 Hct 41.5 L MCV 103.2 H MCH 34.1 H MCHC 33.0 RDW 12.0 L Plt Count 174 MPV 9.5 Neut % (Auto) 67.3 Lymph % (Auto) 16.3 [place] % (Auto) 13.1 Eos % (Auto) 1.1 Baso % (Auto) 0.4 Neut # (Auto) 8.77 H Lymph # (Auto) 2.1 [place] # (Auto) 1.7 H Eos # (Auto) 0.2 Baso # (Auto) 0.1 Nucleated RBC % (a uto) 0 Nucleated RBCs # 0.0 Sodium 136 Potassium 5.4 H Chloride 103 Carbon Dioxide 26 Anion Gap 12.4 BUN 13 Creatinine 0.6 L GFR Calculation 140.4 H Glucose 103 Calculated Osmolal ity 282 L Calcium 7.8 L Misc Test Referenc e See comment Vitals: Last Vital Signs Temp 98.1 F 09/21/20 10:17 Pulse 93 09/21/20 10:17 Resp 16 09/21/20 10:17 BP 155/84 09/21/20 10:17 Pulse Ox 93 09/21/20 10:17 Discharge Plan Discharge Patient Disposition: Home Condition: Stable Prescriptions: New levothyroxine 50 mcg Tablet 50 mcg PO QAM 30 Days Qty: 30 RF: 3 budesonide-formoterol 80-4.5 mcg/actuation HFA aerosol inhaler 2 inh inhalation BID Qty: 10.2 RF: 0 Continued metoprolol succinate 50 mg Tablet Extended Release 24 Hr 50 mg PO DAILY RF: 0 lisinopril 20 mg Tablet 20 mg PO DAILY RF: 0 Discharge Orders: Discharge Order (Routine); Ordered 09/21/20 Ordered By: Guy Moore Other Ambulatory Orders: DME: Oxygen (Order) Location: None Selected Ordered By: Guy Moore Referrals: GirishrAnkit MD [Physician] - 09/29/20 8:30 am Joce Adan MD [Physician] - 1 week Zavala,SHERRON Bradley [Primary Care Provider] - 1 month Discharge Diet: Low Salt Discharge Activity: Increase activity as tolerated Patient Instructions: Levothyroxine (By mouth), Budesonide/Formoterol (By breathing), Viral Pneumonia (DC) Discharge Attestations Time Spent in Discharge Care*: greater than 30 min Specific Discharge Activities: educating patient, educating and/or supporting family/caregiver, discussing with pcp/other providers, discussing with nurse case management/social workers/dc planners, documenting/other paperwork and evaluating patient/reviewing data Status at Discharge: Cognitive status at discharge: cognitively intact , Behavioral status at discharge: cooperative , Functional status at discharge: independent ambulation Overall status at discharge: patient is back to baseline Quality Metrics Clinical Quality Measures During this hospital stay, did patient experience: None 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
== END 2020-09-21 13:30 | disposition home or self-care (01) | DRG 871 ==
LOC: ER 21:08 → CSU 21:09 → ICU 09-10 08:29 → MEDSURG 09-17 16:30
PROVIDERS: Hospitalist; Internal Medicine Pulmonary Disease; Admitting Provider Internal Medicine; Emergency Provider Emergency Medicine; PCP Nurse Practitioner Family; Visit Provider Internal Medicine
DX: A41.9 Sepsis, unspecified organism (principal); U07.1 COVID-19; J12.82 Pneumonia due to coronavirus disease 2019; E87.1 Hypo-osmolality and hyponatremia; F10.20 Alcohol dependence, uncomplicated; R31.9 Hematuria, unspecified; I10 Essential (primary) hypertension; R19.7 Diarrhea, unspecified
CPT/HCPCS: 12345; 36415; 36600; 51702; 71045; 71275; 80048; 80051; 80053; 82330; 82728; 82803; 82805; 83605; 83615; 83735; 83880; 83930; 83935; 84100; 84145; 84300; 84443; 84484; 84550; 85025; 85378; 85384; 85610; 86140; 87040; 87070; 87205; 87493; 92524; 93005; 94002; 94003; 94640; 94799; 96372; 99283; 99291; A4570; J0330; J0456; J0696; J1100; J2060; J2250; J2704; J2930; J3010; J3411; J3490; J3535; J7030; J7050; J7512; J8540; Q9967

== ENCOUNTER 2020-09-29 09:40 | Emergency (ER) | payer OTHER, SELFPAY ==
[2020-09-29 09:41] VITALS: BP 116/80; PULSE 96; RESP 18; TEMP 36.8; O2SAT 93; BMI 26.8
--- NOTE | 2020-09-29 09:50 | CT_ITS ---
WS: [id number] CT CHEST ANGIOGRAPHY WITH REFORMATS HISTORY: Shortness of breath TECHNIQUE: Contiguous axial images are obtained through the chest during arterial injection of intrav enous contrast. Images are reconstructed to evaluate the pulmonary arteries. MIP imaging also reviewe d. All CT scans at [facility] use at least one of these dose optimization techniques: aut omated exposure control; mA and/or kV adjustment per patient size (includes targeted exams where dose is matched to clinical indication); or iterative reconstruction. CONTRAST: Omnipaque 350; 95 mL IV. DLP: 597.74 mGy.cm COMPARISON: 09/09/2020 Good opacification of the pulmonary arteries. No filling defects or pulmonary emboli. Pulmonary arter y size is equal to the aorta. Mild atherosclerosis aorta with no aneurysm or dissection. Mild enlarge ment of the LEFT heart chambers. No RIGHT heart strain. No pericardial effusion. Very small RIGHT ple ural effusion. Diffuse bilateral, multi lobar areas of opacification. The areas of groundglass of the opacification seen on the prior study and now increasing in consolidation. Overall no significant improvement in the airspace disease. No adenopathy. Mild bilateral gynecomastia. Multilobulated RIGHT adrenal mass containing fat consistent with an adre nal myelolipoma. Mild anterior wedging of T12. No osteoblastic or osteolytic disease. CT/CT angio chest PE protcl [id number] IMPRESSION: 1. No pulmonary embolism. 2. Multi lobar diffuse opacifications have increased from groundglass attenuat ion and more consolidations. Typical progression for Covid pneumonia. 3. Gynecomastia. 4. Mild cardiomegaly. 5. Small RIGHT pleural effusion. 6. Stable RIGHT adrenal myelolipoma.
--- NOTE | 2020-09-29 09:50 | ECG_ITS ---
[facility] Test Date: 2020-09-29 Pat Name: Juan Carlos Ponce Department: Room: Gender: Male [employer]ian [employer]: : 1965 Requested By: Lowell New Order Number: [id number] Leo MD: DANNY FLETCHER Measurements Intervals [place] Rate: 92 P: 25 ID: [id number] QRS: -9 QRSD: 97 T: 12 QT: 360 QTc: 445 Interpretive Statements SINUS RHYTHM POSSIBLE LEFT ATRIAL ENLARGEMENT [-0.1mV P WAVE IN V1/V2] POSSIBLE LEFT VENTRICULAR HYPERTROPHY [VOLTAGE CRITERIA PLUS LAE OR QRS WIDENING] Compared to ECG 09/09/2020 18:15:46 No significant changes Electronically Signed On 09-29-2020 18:01:26 COMMUNITY OUTREACH WORKER by DANNY FLETCHER [email or web address]
--- NOTE | 2020-09-29 09:53 | W.ED.SOB ---
HPI - SOB/Dyspnea General: Chief Complaint: Shortness of Breath/Dyspnea Stated Complaint: SOB Time Seen by Provider: 09/29/20 09:48 Source: patient, family, RN notes reviewed and old records reviewed Mode of arrival: ambulatory Limitations: no limitations History of Present Illness: HPI Narrative: This patient is a 55-year-old male who presents to the emergency department for recurrence of shortness of breath. Patient was recently admitted to the hospital for COVID-19 infection. Patient was recently released off of quarantine. Patient has required oxygen by nasal cannula since his infection. Patient has been doing well but subsequently started having increased shortness of breath. Patient is now on 3 L by nasal cannula to maintain O2 sat. Patient's O2 sat on 3 L is 92%. Blood pressure 116/80. Patient also describes increased fatigue. Patient was sent to the emergency department by PCP for concerns of possible developing of a PE in the lungs post Covid infection. MD elicited complaint: shortness of breath Pertinent past history: pneumonia Onset (ago): day(s) Context: recent illness Timing: constant Severity: moderate Exacerbating factors: nothing Relieving factors: oxygen and rest Associated symptoms: Reports no associated symptoms; Deny abdominal pain, chest congestion, chest pain, extremity pain, fever(s), hemoptysis, lightheadedness, nausea, orthopnea, palpitations, syncope or vomiting Treatment prior to arrival: oxygen Review of Systems General: Reports: 10 or more systems reviewed and unremarkable except in HPI and below Const: Reports: fatigue; Denies: fever(s), chills, body aches or change in weight Eyes: Denies: change in vision or eye redness ENMT: Reports: hoarseness; Denies: throat pain, enlarged tonsils, odynophagia, mouth pain or swelling of lips/tongue Card: Reports: dyspnea on exertion; Denies: chest pain, palpitations, irregular heart rhythm, edema, swelling of feet/ankles, lightheadedness, syncope, pre-syncope or orthopnea Resp: Reports: dyspnea and non-productive cough; Denies: productive cough, wheezing, stridor, pain on inspiration, change in phlegm color, hemoptysis or chest congestion GI: Denies: abdominal pain, nausea, vomiting or hematemesis Musc: Denies: neck pain, back pain, extremity pain or extremity swelling Skin/Breast: Denies: rash, pruritus, erythema, photosensitivity, skin tenderness or skin swelling All/Imm: Denies: urticaria, throat swelling, tongue swelling, facial swelling, acute wheezing, seasonal rhinorrhea or food intolerance PFSH ED PFSH: Medical History 2019 novel coronavirus–infected pneumonia (NCIP)#8211;infected pneumonia (NCIP) Acute respiratory failure with hypoxia Hematuria Hypertension Hyponatremia Normal colonoscopy Sepsis Surgical History History of incision and drainage Gluteal abscess Family History Father Cancer Multiple myeloma Social History Smoking and tobacco status: never smoked Second hand smoke exposure: No Smoking risk assessment/counseling performed?: Yes Alcohol intake: current Alcohol intake frequency: holidays/special occasions only Alcohol type: beer Desire information about alcohol rehabilitation?: No Counseling given: Yes Caregiver/support person: No Lives independently: Yes Household members: spouse Housing: House Marital status: service: No Current occupational status: employed Pets and animals: Yes History of recent travel: No Current gender identity: Male Physical Exam Const: COMMON NORMALS: no acute distress, patient oriented x3, alert and well nourished GENERAL APPEARANCE: cooperative HENMT: COMMON NORMALS: normocephalic, atraumatic, hearing grossly normal bilaterally, external ears normal, EAC's normal, TM's normal bilaterally, Normal external nose present, moist oral mucous membranes and oropharynx normal HEAD & SCALP: normocephalic and atraumatic NOSE: Normal external nose present EXTERNAL EAR: Yes external ears normal EXTERNAL AUDITORY CANAL: EAC's normal TYMPANIC MEMBRANE: TM's normal bilaterally Eye: COMMON NORMALS: Equal, round and reactive pupils present, EOMs intact bilaterally and conjunctivae normal CONJUNCTIVA: Yes conjunctivae normal PUPIL: Yes Equal, round and reactive pupils present Neck/C-Spine: COMMON NORMALS: no JVD Chest: COMMONS NORMALS: normal inspection of the chest and normal palpation of entire chest wall Resp: EFFORT & INSPECTION: Yes able to speak in complete sentences, Yes symmetric chest movement and Yes tachypneic AUSCULTATION: bronchial breath sounds Cardio: COMMON NORMALS: no JVD, regular rate and regular rhythm RATE: regular rate RHYTHM: regular rhythm GI: COMMON NORMALS: Normal to inspection, nondistended, normoactive bowel sounds present, Soft to palpation and non-tender PALPATION: Yes Soft to palpation Extremity: COMMON NORMALS: normal to inspection and full ROM Neuro: COMMON NORMALS: patient oriented x3 SENSORIUM/ORIENTATION: Yes alert Psych: COMMON NORMALS: mental status grossly normal and Normal thought process present THOUGHT PROCESS: Normal thought process present Skin: COMMON NORMALS: no rashes or lesions noted GENERAL SKIN EXAM: no rashes or lesions noted Course Reevaluation(s): Reevaluation #1: Patient is stable at this time. Will give 10 mg Decadron IM. Time: 10:46 Reevaluation #2: Ct Angion IMPRESSION: 1. No pulmonary embolism. 2. Multi lobar diffuse opacifications have increased from groundglass attenuation and more consolidations. Typical progression for Covid pneumonia. 3. Gynecomastia. 4. Mild cardiomegaly. 5. Small RIGHT pleural effusion. 6. Stable RIGHT adrenal myelolipoma. Time: 10:53 Consultations: Consultation #1: Dr. Fong called we discussed at length with patient clinical course. Patient reportedly had a low pulse ox around 75% in his clinic this morning here in the emergency department is 93% on 5 L by nasal cannula. Dr. Fong is requesting evaluation to rule out PE. He states that if the patient does have PE he request the patient be placed back on Eliquis. He states that the patient did have a bleeding nose from previous Eliquis use and requests that the patient monitor this closely. If bleeding recurs to stop the Eliquis. He states if PE study is negative. He requests that we give the patient a Medrol Dosepak and placed on antibiotics. He request the patient follow-up with him in the clinic in 7 to 10 days. Time: 10:48 Vital Signs: Vital signs: Vital Signs Temperature 98.2 F 09/29/20 09:41 Pulse Rate 96 09/29/20 09:41 Respiratory Rate 18 09/29/20 09:41 Blood Pressure 116/80 09/29/20 09:41 Pulse Oximetry 93 09/29/20 10:08 MDM - SOB/Dyspnea MDM Narrative: Medical decision making narrative: Patient is post Covid infection. Patient still showed residual signs of Covid pneumonia. Patient is to continue all O2 at home as instructed. Patient will be started on steroid Dosepak and antibiotics per pulmonology request. And will follow up with [facility] [employer] in 7 to 10 days. Differential Diagnosis: Shortness of Breath Differential Diagnosis: Likely acute exacerbation of chronic obstructive airways disease, congestive heart failure, community acquired pneumonia, asthma with exacerbation and pulmonary embolism Lab Data: Attestation: I reviewed the patient's lab results. Labs: Lab Results 09/29/20 09/29/20 09/29/20 Range/Units 10:00 10:00 10:00 WBC 13.1 H (4.0-10.0) 10^3/ uL RBC 4.17 (4.1-5.3) 10^6/u L Hgb 14.2 (11.7-16.6) g/dL Hct 41.6 L (42.0-52.0) % MCV 99.8 H (80-94) fL MCH 34.1 H (28.0-34.0) pg MCHC 34.1 (30.0-36.0) g/dL RDW 11.9 L (12.1-15.1) % Plt Count 283 (130-400) 10^3/c mm MPV 9.0 (7.4-10.4) fL Neut % (Auto) 73.9 % Lymph % (Auto) 12.3 % Eaton % (Auto) 11.0 % Eos % (Auto) 1.0 % Baso % (Auto) 0.5 % Neut # (Auto) 9.66 H (1.8-7.7) 10^3/u L Lymph # (Auto) 1.6 (0.8-4.8) 10^3/u L Eaton # (Auto) 1.4 H (0.2-0.9) 10^3/u L Eos # (Auto) 0.1 (0.0-0.8) 10^3/u L Baso # (Auto) 0.1 (0.0-0.1) 10^3/u L Nucleated RBC % (a uto) 0 % Nucleated RBCs # 0.0 /100WBC PT 14.50 (12.1-14.9) SECO NDS INR 1.10 (0.8-1.2) Sodium 134 L (136-145) mmol/L Potassium 3.9 (3.5-5.1) mmol/L Chloride 97 L (98-107) mmol/L Carbon Dioxide 26 (22-29) mmol/L Anion Gap 14.9 (5-19) BUN 5 L (6-20) mg/dL Creatinine 0.5 L (0.7-1.2) mg/dL GFR Calculation 172.6 H (90-130) mL/min Glucose 111 (65-115) mg/dL Calculated Osmolal ity 276 L (285-295) mOsm/k g Calcium 8.9 (8.5-10.5) mg/dL Total Bilirubin 0.7 (0.15-1.2) mg/dL AST 18 (0-40) U/L ALT 27 (0-41) U/L Alkaline Phosphata se 127 (40-130) IU/L NT-Pro-B Natriuret Pep 147 H (0-125) pg/mL Total Protein 7.4 (6.6-8.7) g/dL Albumin 3.0 L (3.5-5.2) g/dL Globulin 4.4 (1.3-4.6) g/dL Imaging Data^: CT Chest: Attestation: I personally reviewed and interpreted this imaging study as follows: Radiologist's impression: IMPRESSION: 1. No pulmonary embolism. 2. Multi lobar diffuse opacifications have increased from groundglass attenuation and more consolidations. Typical progression for Covid pneumonia. 3. Gynecomastia. 4. Mild cardiomegaly. 5. Small RIGHT pleural effusion. 6. Stable RIGHT adrenal myelolipoma. EKG Data^: EKG 1: Attestation: I personally reviewed and interpreted this EKG as follows: EKG Interpretation Date: 09/29/20 EKG interpretation time: 10:04 Prior EKG tracings: available for review Interpretation: Sinus rhythm with possible left atrial enlargement. Mild left ventricular hypertrophy. Nonspecific EKG. Discharge Plan Discharge Patient Disposition: Home Clinical Impression: COVID-19 virus infection, Oxygen desaturation, Pneumonia due to COVID-19 virus Condition: Stable Prescriptions: New prednisone 10 mg tablet See Rx Instructions .ROUTE .COMPLEX Qty: 30 RF: 0 Zithromax Z-George 250 mg tablet See Rx Instructions .ROUTE .COMPLEX Qty: 6 RF: 0 No Action metoprolol succinate 50 mg Tablet Extended Release 24 Hr 50 mg PO DAILY@08 RF: 0 lisinopril 20 mg Tablet 20 mg PO DAILY@08 RF: 0 budesonide-formoterol 80-4.5 mcg/actuation HFA aerosol inhaler 2 inh inhalation BID Qty: 10.2 RF: 0 Tylenol Extra Strength 500 mg Tablet 500 - 1,000 mg PO BID PRN (Reason: Pain) RF: 0 albuterol sulfate 90 mcg/actuation HFA aerosol inhaler 2 puff INHALATION QID PRN (Reason: Shortness Of Breath) RF: 0 levothyroxine 50 mcg tablet 50 mcg PO DAILY@08 RF: 0 Discharge Orders: Discharge ED (Routine); Ordered 09/29/20 Ordered By: Lowell New Referrals: Mirna Zavala APN [Primary Care Provider] - Ankit Grace MD [Physician] - 4-7 days Discharge Diet: Advance as tolerated Discharge Activity: Increase activity as tolerated Patient Instructions: Pneumonia - Viral Activity Restrictions/Additional Instructions: Encourage p.o. fluids. Continue oxygen as instructed. Take medications as instructed. Scheduled albuterol 3 puffs inhalations as instructed previously by Dr. Mcqueen. Patient is to take medications as instructed and follow-up with Dr. Grace in 4 to 7 days per his request. Coding Level of Care Code ED Heat Treat Technician for Azalea Fwdorothy Exam Comprehensive
[2020-09-29 10:08] VITALS: O2SAT 93
--- NOTE | 2020-09-29 10:11 | PC.PHAR ---
pt states he takes the medication entered-pt had rx filled on 08/29/2020 30d/s for plaquenil 200mg bid-pt and pts states the pt hasnt taken this medication states it was filled but pt didnt take
[2020-09-29 10:13] LABS: Basophils # 0.1 10^3/uL (0.0-0.1); Basophils % 0.5 %; Eosinophils # 0.1 10^3/uL (0.0-0.8); Hematocrit 41.6 % (42.0-52.0); Hemoglobin 14.2 g/dL (11.7-16.6); Lymphocytes # 1.6 10^3/uL (0.8-4.8); Lymphocytes % 12.3 %; Mean Corpuscular HGB Conc 34.1 g/dL (30.0-36.0); Mean Corpuscular Hemoglobin 34.1 pg (28.0-34.0); Mean Corpuscular Volume 99.8 fL (80-94); Monocytes # 1.4 10^3/uL (0.2-0.9); Neutrophils # 9.66 10^3/uL (1.8-7.7); Neutrophils % 73.9 %; Nucleated Red Blood Cells % 0 %; Platelet Count 283 10^3/cmm (130-400); Red Blood Count 4.17 10^6/uL (4.1-5.3); Red Cell Distribution Width 11.9 % (12.1-15.1); White Blood Count 13.1 10^3/uL (4.0-10.0)
--- NOTE | 2020-09-29 10:25 | PC.NURSE ---
pt to CT by stretcher with tech
[2020-09-29] MEDS: albuterol 8 gm MDI 2 PUFF INHALATION (10:30)
[2020-09-29] MEDS: iohexol 350 mg/mL 100 mL Btl IV (10:32)
[2020-09-29 10:35] VITALS: PULSE 70; RESP 16; O2SAT 97
[2020-09-29 10:45] LABS: Alanine Aminotransferase 27 U/L (0-41); Alkaline Phosphatase 127 IU/L (40-130); Aspartate Amino Transferase 18 U/L (0-40); Blood Urea Nitrogen 5 mg/dL (6-20); Calcium 8.9 mg/dL (8.5-10.5); Carbon Dioxide 26 mmol/L (22-29); Chloride 97 mmol/L (98-107); Globulin 4.4 g/dL (1.3-4.6); Glomerular Filtration Rate 172.6 mL/min (90-130); Glucose 111 mg/dL (65-115); NT Pro B Type Natriuretic Pept 147 pg/mL (0-125); Osmolality Calculated 276 mOsm/kg (285-295); Sodium 134 mmol/L (136-145); Total Bilirubin 0.7 mg/dL (0.15-1.2); Total Protein 7.4 g/dL (6.6-8.7)
[2020-09-29 10:51] LABS: Anion Gap 14.9 (5-19); Potassium 3.9 mmol/L (3.5-5.1)
[2020-09-29 10:53] LABS: D Dimer 5.49 ug/mIFEU (0-0.59)
[2020-09-29] MEDS: sodium chloride 0.9% 500 ML 999 ML IV (10:57)
[2020-09-29] MEDS: dexamethasone 10 mg/mL INJ IM (10:57)
[2020-09-29 11:00] VITALS: BP 125/89; PULSE 89; O2SAT 96
[2020-09-29 11:32] VITALS: BP 118/83; PULSE 79; O2SAT 97
== END 2020-09-29 11:40 | disposition home or self-care (01) ==
PROVIDERS: Emergency Provider Emergency Medicine; PCP Nurse Practitioner Family
DX: U07.1 COVID-19 (principal); J12.82 Pneumonia due to coronavirus disease 2019; I10 Essential (primary) hypertension
CPT/HCPCS: 12345; 36600; 71275; 80053; 82805; 83880; 85025; 85378; 85610; 93005; 94640; 96375; 99283; 99284; J1100; J3535; J7040; Q9967

== ENCOUNTER 2020-09-30 01:51 | Inpatient (IN) | payer OTHER, SELFPAY ==
[2020-09-30] VITALS (23 sets, daily range): BP systolic 117–176; BP diastolic 75–102; PULSE 76–113; RESP 12–28; TEMP 36.6–36.8; O2SAT 86–98; BMI 25.7
--- NOTE | 2020-09-30 03:56 | W.ED.SOB ---
HPI - SOB/Dyspnea General: Chief Complaint: Shortness of Breath/Dyspnea Stated Complaint: here earlier, o2 dropping Time Seen by Provider: 09/30/20 01:58 History of Present Illness: HPI Narrative: 55-year-old male returns to the ED with shortness of breath. Patient was here 09/29/2020 for the same complaint. At that time patient was diagnosed with Covid pneumonia. Patient's vital signs were stable. Patient had been given 10 mg of dexamethasone here. He was sent home with a Z-George. The family states that at first he seemed to be doing okay but then later in the evening when he laid down he started seeming worse. His states that she checked his oxygen level and it was in the 70s even on oxygen. She subsequently went to this facility. Patient was noted here with O2 sats also in the 70s on 4-5 L per nasal cannula. Of note the patient had been discharged from [facility] on 09/21/2020 secondary to Covid pneumonia. He had been intubated at that time. Patient has since been released from quarantine due to the Covid. MD elicited complaint: shortness of breath Pertinent past history: pneumonia (Covid) Context: recent illness Timing: constant Severity: moderate Exacerbating factors: lying flat Relieving factors: nothing Known history of: recurrent pneumonia Associated symptoms: Deny chest congestion or hemoptysis Treatment prior to arrival: oxygen and bronchodilator ( states he did use the albuterol at home which did not seem to help.) Review of Systems General: Reports: 10 or more systems reviewed and unremarkable except in HPI and below Resp: Reports: dyspnea (Current chief complaint.); Denies: productive cough, pain on inspiration, hemoptysis or chest congestion [facility] ED PFSH: Medical History 2019 novel coronavirus–infected pneumonia (NCIP)#8211;infected pneumonia (NCIP) Acute respiratory failure with hypoxia Hematuria Hypertension Hyponatremia Normal colonoscopy Sepsis Surgical History History of incision and drainage Gluteal abscess Family History Father Cancer Multiple myeloma Social History Smoking and tobacco status: never smoked Second hand smoke exposure: No Smoking risk assessment/counseling performed?: Yes Alcohol intake: current Alcohol intake frequency: holidays/special occasions only Alcohol type: beer Desire information about alcohol rehabilitation?: No Counseling given: Yes Caregiver/support person: No Lives independently: Yes Household members: spouse Housing: House Marital status: service: No Current occupational status: employed Pets and animals: Yes History of recent travel: No Current gender identity: Male Physical Exam Narrative: EXAM NARRATIVE: 55-year-old male who appears to be in respiratory distress. Const: COMMON NORMALS: patient oriented x3 and alert GENERAL APPEARANCE: cooperative, well kempt, well developed, in distress and anxious NUTRITIONAL APPEARANCE: obese ORIENTATION/CONSCIOUSNESS: Yes awake, Yes oriented to person, Yes oriented to place and Yes oriented to time HENMT: COMMON NORMALS: normocephalic and moist oral mucous membranes HEAD & SCALP: normocephalic MOUTH: Normal oral and palatal mucosa present THROAT: posterior oropharynx normal Neck/C-Spine: COMMON NORMALS: no JVD Chest: COMMONS NORMALS: normal inspection of the chest and normal palpation of entire chest wall Resp: EFFORT & INSPECTION: Yes able to speak in complete sentences, Yes symmetric chest movement and Yes respiratory distress (Mild respiratory distress.) AUSCULTATION: crackles (Mild crackles noted) Laterality: bilateral and posterior, no rales, no rhonchi, no wheezes and diminished lung sounds PERCUSSION: dullness Cardio: COMMON NORMALS: no JVD, regular rate and regular rhythm RATE: regular rate RHYTHM: regular rhythm GI: COMMON NORMALS: Normal to inspection, nondistended, normoactive bowel sounds present, Soft to palpation and non-tender PALPATION: Yes Soft to palpation Extremity: COMMON NORMALS: normal to inspection, full ROM, capillary refill normal, no calf tenderness and no pedal edema Neuro: COMMON NORMALS: patient oriented x3, moves all extremities and no focal motor deficits SENSORIUM/ORIENTATION: Yes alert, Yes oriented to person, Yes oriented to place and Yes oriented to time SPEECH: speech normal Psych: APPEARANCE: Yes well kempt Course Vital Signs: Vital signs: Vital Signs Pulse Rate 99 09/30/20 05:45 Respiratory Rate 22 H 09/30/20 05:45 Blood Pressure 133/97 09/30/20 05:45 Pulse Oximetry 96 09/30/20 05:45 MDM - SOB/Dyspnea Lab Data: Labs: Lab Results 09/30/20 Range/Units 04:37 Specimen Type Arterial Sample Site Brachial, right ABG pH 7.45 (7.35-7.45) ABG pCO2 38.5 (35-45) mmHg ABG pO2 72.2 L (80.0-100.0) mmH g ABG HCO3 27.0 H (22-26) mmol/L ABG Base Excess 2.9 H (-2.0-2.0) mmol/ L Nacho Test N/a Hematocrit 43.9 (42-52) % O2 Delivery Device Bipap FiO2 50.0 % Yarn Handler ID [id number] Discharge Plan Discharge Patient Disposition: Admitted As Inpatient Admit Provider: Best Zamarripa Clinical Impression: Pneumonia due to COVID-19 virus Condition: Stable Coding Level of Care Code ED Portable Feed Mill Operator for Chg Fwd Exam Comprehensive
[2020-09-30 04:49] LABS: ABG PCO2 38.5 mmHg (35-45); ABG PH Result 7.45 (7.35-7.45); Arterial Blood Gas Hematocrit 43.9 % (42-52); Base Excess ABG 2.9 mmol/L (-2.0-2.0); Blood Gas Sample Site Brachial, right; Blood Gas Sample Type Arterial; Oxygen Device BIPAP; PO2 ABG 72.2 mmHg (80.0-100.0)
--- NOTE | 2020-09-30 05:57 | PM.HP ---
Providers/Chief Complaint Admitting Physician: Best Zamarripa MD Primary Care Provider: Mirna Zavala APN Chief Complaint: here earlier, o2 dropping History of Present Illness Juan Carlos Ponce is a 55 year old male who contracted COVID-19 pneumonia in August, was recently discharged from the hospital, today followed up with [employer] [facility] [employer], patient was desaturating while he was on his home O2 regimen, he was asked to go to the ER to rule out pulmonary embolism. In the ER CT was done which ruled out PE however CT revealed worsening bilateral infiltrates Covid pneumonia pattern, he was discharged home with a azithromycin and prednisone on recommendation of Dr. Blake. Patient returned to the hospital because of worsening hypoxia, he was not feeling well, his O2 saturation was in low 70s despite using 4 to 5 L of O2 at home. Patient is stating that he was not feeling any shortness of breath despite being hypoxic, he did not notice any diarrhea, vomiting or myalgias or fever at home. Today diagnostics in the ER revealed relative hypoxia, patient's work of breathing improved with BiPAP ABG revealed normal pH with altered hypoxia on 50% FiO2 BiPAP settings 18/8 CTA chest showing worsening groundglass infiltrates for Covid pneumonia, I have requested procalcitonin, met sepsis criteria with COVID-19 Review of Systems Const: Reports: body aches and fatigue; Denies: fever(s) or chills Eyes: Denies: change in vision ENMT: Denies: throat pain Card: Denies: chest pain Resp: Reports: dyspnea and non-productive cough GI: Denies: abdominal pain : Denies: flank pain Musc: Denies: neck pain Skin/Breast: Denies: rash Neuro: Denies: headache(s), weakness in extremities or lack of coordination Psych: Denies: anxiety Endo: Denies: polyuria Gerson/Lymph: Denies: easy bruising All/Imm: Denies: urticaria Medications/Allergies Home Medications Medication Instructions Recorded Confirmed Last Taken Type lisinopril 20 mg PO DAILY@09/09/20 09/29/20 09/29/20 History metoprolol succinate 50 mg PO DAILY@09/09/20 09/29/20 09/29/20 History budesonide-formoterol 2 inh INHALATION BID #10.2 g 09/21/20 09/29/20 09/28/20 Rx acetaminophen [Tylenol Extra 500 - 1,000 mg PO BID PRN 09/29/20 09/29/20 Unknown History Strength] albuterol sulfate 2 puff INHALATION QID PRN 09/29/20 09/29/20 Unknown History azithromycin [Zithromax Z-George] See Rx Instructions .ROUTE 09/29/20 Unknown Rx .COMPLEX #6 tab levothyroxine 50 mcg PO DAILY@08 09/29/20 09/29/20 09/29/20 History prednisone See Rx Instructions .ROUTE 09/29/20 Unknown Rx .COMPLEX #30 tab Allergies Allergy/AdvReac Type Severity Reaction Status Date / Time lorazepam [From Ativan] AdvReac ADR-Agitate Verified 09/29/20 10:06 d calamari Allergy Unknown Uncoded 09/29/20 08:43 PFSH Acute PFSH: Medical History 2019 novel coronavirus–infected pneumonia (NCIP)#8211;infected pneumonia (NCIP) Acute respiratory failure with hypoxia Hematuria Hypertension Hyponatremia Normal colonoscopy Sepsis Surgical History History of incision and drainage Gluteal abscess Family History Father Cancer Multiple myeloma Social History Smoking and tobacco status: never smoked Second hand smoke exposure: No Smoking risk assessment/counseling performed?: Yes Alcohol intake: current Alcohol intake frequency: holidays/special occasions only Alcohol type: beer Desire information about alcohol rehabilitation?: No Counseling given: Yes Caregiver/support person: No Lives independently: Yes Household members: spouse Housing: House Marital status: service: No Current occupational status: employed Pets and animals: Yes History of recent travel: No Current gender identity: Male Vitals/I&O/Wt Last Vital Signs Pulse 99 09/30/20 05:45 Resp 22 H 09/30/20 05:45 BP 133/97 09/30/20 05:45 Pulse Ox 96 09/30/20 05:45 Weight last 48 hrs Weight 86.183 kg Physical Exam Narrative: EXAM NARRATIVE: Middle-age male currently on BiPAP settings 18/8 FiO2 50% saturating well Patient is not endorsing shortness of breath or any chest discomfort at the bedside Patient does not look dehydrated or fluid overloaded No active cyanosis noted S1, S2 sinus tachycardia no signs of heart failure Abdomen soft nontender Lower extremity no edema gangrene or ulcer Bilateral breath sounds without adventitious rhonchi or crackles I did not appreciate any wheezing or bronchial breathing, patient is not tachypneic work of breathing seems to be improved on BiPAP Appropriate mood and affect Lower extremity no edema gangrene ulcer GCS 15 awake alert oriented x3 No neurological deficit A&P Assessment and plan (1) Pneumonia due to COVID-19 virus: Status: Acute (2) Sepsis: Status: Acute (3) Acute and chronic respiratory failure with hypoxia: Status: Acute (4) ARDS (adult respiratory distress syndrome): Status: Acute Additional A&P Information Acute on chronic hypoxic respiratory failure due to COVID-19 Rule out bacterial pneumonia, will request procalcitonin level Currently requiring BiPAP to decrease work of breathing, O2 saturation improved, current FiO2 50% CTA chest ruled out pulmonary embolism however it is showing worsening bilateral infiltrates High risk for intubation considering progressive ARDS due to COVID-19 I would keep him on Levaquin, Decadron and BiPAP for now Sepsis Due to COVID-19 pneumonia, criteria met with tachypnea, tachycardia leukocytosis Judicious use of fluids due to COVID-19 pneumonia and ARDS Continue antibiotic Levaquin for now, consider discontinuing Levaquin if procalcitonin is normal Hypothyroidism: I will continue his home regimen of levothyroxine Full code Cardiac diet DVT prophylaxis Lovenox Attestations Medical Necessity Statement*: Anticipating stay in the hospital cross more than 2 midnights for worsening, patient high risk for intubation due to ARDS due to COVID-19 pneumonia Time Spent in Patient Care: (>than 50% of time spent in counselling and/or direct pt care on unit). 40mins Coding Level of Care Code Acute Plant Cytologist for Chg Fwd Diagnoses Pneumonia due to COVID-19 virus U07.1; J12.89 Sepsis A41.9 Acute and chronic respiratory failure with hypoxia J96.21 ARDS (adult respiratory distress syndrome) J80
[2020-09-30 06:07] LABS: Procalcitonin 0.06 ng/mL (0-0.5)
[2020-09-30 06:33] LABS: ABG PCO2 36.4 mmHg (35-45); ABG PH Result 7.45 (7.35-7.45); Alveolar-Arterial Oxygen Gradi 30.7 mmHg (5-10); Base Excess ABG 1.1 mmol/L (-2.0-2.0); Blood Gas Sample Site Brachial, left; Blood Gas Sample Type Arterial; Carboxyhemoglobin 0.8 %THgb (0.4-20.1); HGB O2 Sat 94.6 % (95-100); Ionized Calcium Level - ABG 1.3 mmol/L (1.1-1.4); Methemoglobin 0.3 % (0.4-1.5); Oxygen Device BIPAP; Oxygen Saturation ABG 95.6; Potassium Level - ABG 3.8 mmol/L (3.5-5.0); Total Hemoglobin 13.4 g/dL (14-18)
--- NOTE | 2020-09-30 07:15 | PC.NURSE ---
patient admitted from ER, this nurse introduced self, discussed plan of care, verbalized understanding, patient currently on Bipap. call light in reach, side rails up X2.
[2020-09-30 07:33] LABS: C Reactive Protein 136.3 mg/L (0.0-4.9)
[2020-09-30] MEDS: albuterol 8 gm MDI 2 PUFF INHALATION ×4 (08:00→16:04)
[2020-09-30] MEDS: enoxaparin 40 mg/0.4 mL Syringe SUBCUT (08:31)
[2020-09-30] MEDS: lisinopril 20 mg Tablet PO (08:35)
[2020-09-30] MEDS: acetaminophen 500 mg Tablet PO (08:35)
[2020-09-30] MEDS: levothyroxine 50 mcg Tablet PO (08:35)
[2020-09-30] MEDS: dexamethasone 4 mg Tablet 6 MG PO (08:36)
[2020-09-30] MEDS: metoprolol succinate ER (24 HR) 50 mg Tablet PO (08:36)
[2020-09-30] MEDS: levoFLOXacin 750 mg Tablet PO (08:36)
--- NOTE | 2020-09-30 09:05 | PC.NURSE ---
patient reports, i am not diabetic i don't feel comfortable taking insulin right now until the doctor explains it Dr. Martinez notified and in to see patient.
--- NOTE | 2020-09-30 10:47 | PC.NURSE ---
Dr. Martinez in to see patient and reported to patient he will use Bipap at night, oxygen via [place] during day, insulin was started due to decadron, patient verbalized understanding and in agreement with plan of care, son called this nurse, patient agreed to allow this nurse to talk to patients son, who was also in agreement with plan of care. Bedside commode was provided due to patients shortness of breath with exertion and movement.
[2020-09-30 11:04] LABS: Glucose Point of Care 184 mg/dL (70-110)
--- NOTE | 2020-09-30 12:32 | P.PN_ITS ---
Subjective Subjective: Interval history: Patient was doing well, sitting up with out any distress on o2 via NC No fever, chills, nausea or vomiting overnight Vitals/I&O/Wt Last Vital Signs Temp 98.2 F 09/30/20 11:35 Pulse 94 09/30/20 11:56 Resp 20 H 09/30/20 11:54 BP 129/86 09/30/20 11:35 Pulse Ox 95 09/30/20 11:54 Weight last 48 hrs Weight 86.183 kg Physical Exam Narrative: EXAM NARRATIVE: General : Alert, awake, on 02 S1, S2 sinus tachycardia no signs of heart failure Chest : Course breath sounds bilaterally Abdomen soft nontender Lower extremity no edema gangrene or ulcer Appropriate mood and affect Lower extremity no edema gangrene ulcer No neurological deficit A&P Assessment and plan (1) Pneumonia due to COVID-19 virus: Status: Acute (2) Sepsis: Status: Acute (3) Acute and chronic respiratory failure with hypoxia: Status: Acute (4) ARDS (adult respiratory distress syndrome): Status: Acute Additional A&P Information Acute on chronic hypoxic respiratory failure due to COVID-19 - Continue to wean o2 as tolerated - Bipap PRN - Chest x-ray in am - On Levaquin - Consider pulmonary consult - On decadron - Bronchodilatory tx. Sepsis due to pneumonia - on levaquin - Improving - Trend pro-calcitonin - monitor for fever Hypothyroidism - Levothyroxine 50 mcg po daily Full code Cardiac diet DVT prophylaxis Lovenox Attestations Medical Necessity Statement*: Will continue hospitalization for management of sepsis, hypoxic respiratory failure Time Spent in Patient Care: Greater than 35 minutes (>than 50% of time spent in counselling and/or direct pt care on unit) . Coding Level of Care Code Acute Outboard Motors Experimental Mechanic for Chg Fwd Diagnoses Pneumonia due to COVID-19 virus U07.1; J12.89 Sepsis A41.9 Acute and chronic respiratory failure with hypoxia J96.21 ARDS (adult respiratory distress syndrome) J80
--- NOTE | 2020-09-30 14:10 | PC.CHAP ---
Pastoral Care Encounter/Spiritual Assessment Type of Contact [] Declined mechanical equipment test engineer visit [] Patient/Family/Request visit [] Outpatient visit [] Follow-up visit [] Physician referral [] Code/Alert [xx] Routine visit [] Staff referral [] Actively dying [] Patient sleeping [] Family support [] [] Out of room [] Palliative care [] [] Receiving care in room [] Pre-surgical visit [] Trauma [] Long length of stay [] ICU visit [] Other: Relational/Emotional Strength [xx] Patient feels connected with others/family/visitors/staff [] Distress [] Loneliness/isolation [] Abandonment Spirituality of Patient [] Person of Marilyn [] Attends Taoist of their Marilyn [xx] Believes in Prayer [] Reads Bible or Christian materials [] There are Spiritual issues to be addressed Caramel Coloring Operator Interventions [xx] Prayer [xx] Active listening [xx] Non-anxious presence [] Spiritual/emotional support [] Crisis/trauma care [] Spiritual counseling [] Bereavement support [] Provided bereavement packet [] Provided Bible/devotional materials [] Provided toy/stuffed animal, coloring book to patient or family member [] Provided Communion [] Anointing/[place] [] Salvation [xx] Completed spiritual assessment [] Other: Impact on Illness or Injury [] Angry [xx] Fearful [xx] Anxious [] Often cries [] Exhaustion [] Unable to work [] Unable to attend amish [] Unable to walk/stand [] Unable to read [] Unable to drive [] Unable to eat/drink [] Unable to sleep [] Unable to be with family [] Patient intubated [] Other: Summary Patient worried about pneumonia after-affect from Covid -19 he had weeks ago. Patient afraid his health will never returnto his former normal. Caramel Coloring Operator prayed accordingly. Time spent with patient 7 minutes
[2020-09-30 17:05] LABS: Glucose Point of Care 159 mg/dL (70-110)
[2020-09-30 19:59] LABS: Glucose Point of Care 149 mg/dL (70-110)
[2020-10-01] VITALS (15 sets, daily range): BP systolic 110–149; BP diastolic 72–89; PULSE 70–95; RESP 12–26; TEMP 36.4–37.2; O2SAT 92–99
[2020-10-01] MEDS: albuterol 8 gm MDI 2 PUFF INHALATION ×6 (04:00→23:55)
[2020-10-01 04:57] LABS: Basophils % 0.1 %; Hematocrit 36.1 % (42.0-52.0); Hemoglobin 12.2 g/dL (11.7-16.6); Lymphocytes # 1.8 10^3/uL (0.8-4.8); Lymphocytes % 8.3 %; Mean Corpuscular HGB Conc 33.8 g/dL (30.0-36.0); Mean Corpuscular Hemoglobin 33.7 pg (28.0-34.0); Mean Corpuscular Volume 99.7 fL (80-94); Mean Platelet Volume 9.3 fL (7.4-10.4); Monocytes # 1.3 10^3/uL (0.2-0.9); Monocytes % 5.9 %; Neutrophils # 18.51 10^3/uL (1.8-7.7); Neutrophils % 84.9 %; Nucleated Red Blood Cells % 0 %; Platelet Count 301 10^3/cmm (130-400); Red Blood Count 3.62 10^6/uL (4.1-5.3); Red Cell Distribution Width 11.6 % (12.1-15.1); White Blood Count 21.8 10^3/uL (4.0-10.0)
[2020-10-01] MEDS: levoFLOXacin 750 mg Tablet PO (05:02)
[2020-10-01 05:22] LABS: Alanine Aminotransferase 52 U/L (0-41); Albumin Level 2.8 g/dL (3.5-5.2); Alkaline Phosphatase 109 IU/L (40-130); Anion Gap 13.2 (5-19); Aspartate Amino Transferase 32 U/L (0-40); Blood Urea Nitrogen 12 mg/dL (6-20); Calcium 8.8 mg/dL (8.5-10.5); Carbon Dioxide 25 mmol/L (22-29); Chloride 101 mmol/L (98-107); Globulin 3.9 g/dL (1.3-4.6); Glomerular Filtration Rate 172.6 mL/min (90-130); Glucose 137 mg/dL (65-115); Lactate Dehydrogenase 252 U/L (135-225); Osmolality Calculated 282 mOsm/kg (285-295); Potassium 4.2 mmol/L (3.5-5.1); Sodium 135 mmol/L (136-145); Total Bilirubin 0.2 mg/dL (0.15-1.2); Total Protein 6.7 g/dL (6.6-8.7)
[2020-10-01 06:25] LABS: Glucose Point of Care 123 mg/dL (70-110)
[2020-10-01] MEDS: metoprolol succinate ER (24 HR) 50 mg Tablet PO (09:19)
[2020-10-01] MEDS: enoxaparin 40 mg/0.4 mL Syringe SUBCUT (09:19)
[2020-10-01] MEDS: levothyroxine 50 mcg Tablet PO (09:19)
[2020-10-01] MEDS: lisinopril 20 mg Tablet PO (09:19)
[2020-10-01] MEDS: dexamethasone 4 mg Tablet 6 MG PO (09:19)
[2020-10-01 10:55] LABS: Glucose Point of Care 163 mg/dL (70-110)
--- NOTE | 2020-10-01 15:08 | PM.PN ---
Subjective Subjective: Interval history: Patient was doing well, sitting up with out any distress on o2 via NC No fever, chills, nausea or vomiting overnight Requiring 4.5L currently Medications: Reviewed: Yes Vitals/I&O/Wt Last Vital Signs Temp 97.7 F 10/01/20 10:59 Pulse 82 10/01/20 11:45 Resp 20 H 10/01/20 11:45 BP 110/72 10/01/20 10:59 Pulse Ox 94 10/01/20 11:45 10/01/20 10/01/20 10/01/20 06:59 14:59 22:59 Intake Total 400 / 1180 600 / 600 Balance 400 / -820 600 / 600 Weight last 48 hrs Weight 86.183 kg Physical Exam Narrative: EXAM NARRATIVE: General : Alert, awake, on 02 S1, S2 sinus tachycardia no signs of heart failure Chest : Course breath sounds bilaterally Abdomen soft nontender Lower extremity no edema gangrene or ulcer Appropriate mood and affect Lower extremity no edema gangrene ulcer No neurological deficit Data : 10/01/20 04:12 10/01/20 04:12 A&P Assessment and plan (1) Pneumonia due to COVID-19 virus: Status: Acute (2) Sepsis: Status: Acute (3) Acute and chronic respiratory failure with hypoxia: Status: Acute (4) ARDS (adult respiratory distress syndrome): Status: Acute Additional A&P Information Acute on chronic hypoxic respiratory failure due to post COVID-19 - Continue to wean o2 as tolerated - Bipap PRN - Chest x-ray in am - On Levaquin - Consider pulmonary consult - On decadron - change to prednisone 40 mg po daily - Bronchodilatory tx. - Conitnue to wean o2 Sepsis due to pneumonia - on levaquin - Improving - Trend pro-calcitonin - monitor for fever Hypothyroidism - Levothyroxine 50 mcg po daily Full code Cardiac diet DVT prophylaxis Lovenox Attestations Medical Necessity Statement*: Require further hospitalization for management of acute on chronic hypoxic respiratory failure Time Spent in Patient Care: Greater than 35 minutes Coding Level of Care Code Acute Reel Blade Bender Furnace Tender for Chg Fwd Diagnoses Pneumonia due to COVID-19 virus U07.1; J12.89 Sepsis A41.9 Acute and chronic respiratory failure with hypoxia J96.21 ARDS (adult respiratory distress syndrome) J80
[2020-10-01 15:51] LABS: Glucose Point of Care 126 mg/dL (70-110)
[2020-10-01 21:24] LABS: Glucose Point of Care 171 mg/dL (70-110)
[2020-10-02] VITALS (16 sets, daily range): BP systolic 135–152; BP diastolic 79–87; PULSE 74–91; RESP 16–20; TEMP 36.4–36.9; O2SAT 86–98
[2020-10-02] MEDS: albuterol 8 gm MDI 2 PUFF INHALATION ×4 (03:42→15:12)
[2020-10-02 03:54] LABS: ABG PCO2 37.3 mmHg (35-45); ABG PH Result 7.46 (7.35-7.45); Arterial Blood Gas Hematocrit 39.7 % (42-52); Base Excess ABG 2.8 mmol/L (-2.0-2.0); Blood Gas Sample Type Arterial; HCO3 ABG 26.6 mmol/L (22-26)
[2020-10-02 03:55] LABS: Blood Gas Sample Site Brachial, right; Oxygen Device BIPAP
[2020-10-02 05:29] LABS: Basophils # 0.1 10^3/uL (0.0-0.1); Basophils % 0.3 %; Hemoglobin 13.9 g/dL (11.7-16.6); Lymphocytes # 2.3 10^3/uL (0.8-4.8); Lymphocytes % 13.7 %; Mean Corpuscular HGB Conc 33.1 g/dL (30.0-36.0); Mean Corpuscular Volume 102.7 fL (80-94); Mean Platelet Volume 9.4 fL (7.4-10.4); Monocytes # 0.9 10^3/uL (0.2-0.9); Monocytes % 5.7 %; Neutrophils # 12.87 10^3/uL (1.8-7.7); Neutrophils % 78.7 %; Nucleated Red Blood Cells % 0 %; Platelet Count 303 10^3/cmm (130-400); Red Blood Count 4.09 10^6/uL (4.1-5.3); Red Cell Distribution Width 11.8 % (12.1-15.1); White Blood Count 16.4 10^3/uL (4.0-10.0)
[2020-10-02] MEDS: levoFLOXacin 750 mg Tablet PO (05:42)
[2020-10-02 06:14] LABS: Procalcitonin 0.05 ng/mL (0-0.5)
[2020-10-02 06:25] LABS: Alanine Aminotransferase 58 U/L (0-41); Albumin Level 3.1 g/dL (3.5-5.2); Alkaline Phosphatase 129 IU/L (40-130); Anion Gap 16.6 (5-19); Aspartate Amino Transferase 28 U/L (0-40); Blood Urea Nitrogen 11 mg/dL (6-20); Calcium 8.8 mg/dL (8.5-10.5); Carbon Dioxide 25 mmol/L (22-29); Chloride 99 mmol/L (98-107); Glomerular Filtration Rate 172.6 mL/min (90-130); Glucose 103 mg/dL (65-115); Osmolality Calculated 284 mOsm/kg (285-295); Potassium 3.6 mmol/L (3.5-5.1); Sodium 137 mmol/L (136-145); Total Bilirubin 0.2 mg/dL (0.15-1.2)
[2020-10-02 06:29] LABS: Glucose Point of Care 101 mg/dL (70-110)
[2020-10-02] MEDS: levothyroxine 50 mcg Tablet PO (08:46)
[2020-10-02] MEDS: predniSONE 20 mg Tablet 40 MG PO (08:46)
[2020-10-02] MEDS: metoprolol succinate ER (24 HR) 50 mg Tablet PO (08:47)
[2020-10-02] MEDS: acetaminophen 500 mg Tablet PO (08:47)
[2020-10-02] MEDS: lisinopril 20 mg Tablet PO (08:47)
[2020-10-02] MEDS: enoxaparin 40 mg/0.4 mL Syringe SUBCUT (08:48)
[2020-10-02 11:00] LABS: Glucose Point of Care 122 mg/dL (70-110)
--- NOTE | 2020-10-02 15:08 | P.DS_ITS ---
Discharge Providers Date of Admission: 09/30/20 05:37 Date of Discharge: October 02, 2020 Attending Provider at Admission: Best Zamarripa MD Attending Provider at Discharge: Nayla Martinez Primary Care Provider: Mirna Zavala APN Diagnoses at Discharge Discharge Diagnosis (1) Pneumonia due to COVID-19 virus: Status: Acute (2) Sepsis: Status: Acute (3) Acute and chronic respiratory failure with hypoxia: Status: Acute (4) ARDS (adult respiratory distress syndrome): Status: Acute Reason for Visit Reason for Visit: here earlier, o2 dropping Hospital Course Hospital Course 54 year old male with past medical history significant for alcoholism, obstructive sleep apnea noncompliant with CPAP and covid 19 who presented to the hospital with increasing respiratory distress. Patient contracted COVID-19 pneumonia on 08/20, was treated with steroids only at home initially however his symptoms had progressively worsened requiring hospitalization on 09/09/20. During this stay patient was found to have ARDS. Intermittently required mechanical ventilation. After extubation he continued to require 5L of oxygen via nasal cannula. Also was treated with steroids and empirically on antibiotics. He was discharged with oxygen and prednisone taper. Upon return to hospital on 09/29 due to increasing hypoxic in respiratory distress patient was placed on BiPAP. Arterial blood gases had shown a pH of 7.45, pCO2 of 38.5, PO2 of 72.2 and a bicarb 27.0 on BiPAP with 50% FiO2. Additional laboratory workup which shown a WBC of 13.1, hemoglobin of 14.2, hematocrit 41.6 and a platelet count of 283. INR 1.10. ProBNP of 147. A D-dimer of 5.49. Due to elevated d-dimer a CTA of chest was performed. No pulmonary embolism was seen however multi lobar opacification had increased from ground-glass attenuation to more consolidation. Additional findings included small right pleural effusion and mild cardiomegaly. Patient was restarted on Decadron 6 mg PO daily and empirically on Levaquin 750 mg PO daily. He was weaned off BiPAP and transitioned to o2 via NC. This was gradually weaned to 2L. Decadron was transitioned to Prednisone taper due to suspected organizing pneumonia based on progression noted on imaging studies. Low suspicion of superimposed bacterial infection. Procalcitonin was trended and found to be 0.05. Did not have any fever episodes. Leukocytosis was suspected to be due to steroids. Patient was discharged in stable condition. Recommended to have outpatient sleep study in near future, as he may still require CPAP in addition to supplemental oxygen. Physical Exam Narrative: EXAM NARRATIVE: General : Alert, awake, on 02 S1, S2 sinus tachycardia no signs of heart failure Chest : Course breath sounds bilaterally Abdomen soft nontender Lower extremity no edema gangrene or ulcer Appropriate mood and affect Lower extremity no edema gangrene ulcer No neurological deficit Discharge Data Data Completed and Pending: Pending at discharge Category Date Time Status Arterial Blood Ga s W/O Coox Routine Lab 09/30/20 10:00 Ordered Arterial Blood Ga s W/O Coox Stat Lab 09/30/20 02:22 Stop Req Labs from last 24 hours 10/02/20 10/02/20 10/02/20 10:42 06:24 04:24 WBC RBC Hgb Hct MCV MCH MCHC RDW Plt Count MPV Neut % (Auto) Lymph % (Auto) [place] % (Auto) Eos % (Auto) Baso % (Auto) Neut # (Auto) Lymph # (Auto) [place] # (Auto) Eos # (Auto) Baso # (Auto) Nucleated RBC % (a uto) Nucleated RBCs # Specimen Type Sample Site ABG pH ABG pCO2 ABG pO2 ABG HCO3 ABG Base Excess Nacho Test Hematocrit O2 Delivery Device FiO2 Audio Production Instructor ID Sodium 137 Potassium 3.6 Chloride 99 Carbon Dioxide 25 Anion Gap 16.6 BUN 11 Creatinine 0.5 L GFR Calculation 172.6 H Glucose 103 POC Glucose 122 H 101 Calculated Osmolal ity 284 L Calcium 8.8 Total Bilirubin 0.2 AST 28 ALT 58 H Alkaline Phosphata se 129 Total Protein 9.3 H Albumin 3.1 L Globulin 6.2 H Procalcitonin 0.05 10/02/20 10/02/20 10/01/20 04:24 03:41 21:00 WBC 16.4 H RBC 4.09 L Hgb 13.9 Hct 42.0 MCV 102.7 H MCH 34.0 MCHC 33.1 RDW 11.8 L Plt Count 303 MPV 9.4 Neut % (Auto) 78.7 Lymph % (Auto) 13.7 [place] % (Auto) 5.7 Eos % (Auto) 0.0 Baso % (Auto) 0.3 Neut # (Auto) 12.87 H Lymph # (Auto) 2.3 [place] # (Auto) 0.9 Eos # (Auto) 0.0 Baso # (Auto) 0.1 Nucleated RBC % (a uto) 0 Nucleated RBCs # 0.0 Specimen Type Arterial Sample Site Brachial, right ABG pH 7.46 H ABG pCO2 37.3 ABG pO2 154.0 H ABG HCO3 26.6 H ABG Base Excess 2.8 H Nacho Test N/a Hematocrit 39.7 L O2 Delivery Device Bipap FiO2 50.0 Audio Production Instructor ID Jlg Sodium Potassium Chloride Carbon Dioxide Anion Gap BUN Creatinine GFR Calculation Glucose POC Glucose 171 H Calculated Osmolal ity Calcium Total Bilirubin AST ALT Alkaline Phosphata se Total Protein Albumin Globulin Procalcitonin 10/01/20 15:38 WBC RBC Hgb Hct MCV MCH MCHC RDW Plt Count MPV Neut % (Auto) Lymph % (Auto) [place] % (Auto) Eos % (Auto) Baso % (Auto) Neut # (Auto) Lymph # (Auto) [place] # (Auto) Eos # (Auto) Baso # (Auto) Nucleated RBC % (a uto) Nucleated RBCs # Specimen Type Sample Site ABG pH ABG pCO2 ABG pO2 ABG HCO3 ABG Base Excess Nacho Test Hematocrit O2 Delivery Device FiO2 Audio Production Instructor ID Sodium Potassium Chloride Carbon Dioxide Anion Gap BUN Creatinine GFR Calculation Glucose POC Glucose 126 H Calculated Osmolal ity Calcium Total Bilirubin AST ALT Alkaline Phosphata se Total Protein Albumin Globulin Procalcitonin Vitals: Last Vital Signs Temp 97.5 F L 10/02/20 11:08 Pulse 84 10/02/20 11:51 Resp 16 10/02/20 11:51 BP 145/86 10/02/20 11:08 Pulse Ox 95 10/02/20 11:51 Discharge Plan Discharge Patient Disposition: Home Condition: Stable Prescriptions: New Protonix 40 mg tablet,delayed release (DR/EC) 40 mg PO DAILY Qty: 14 RF: 0 Continued metoprolol succinate 50 mg Tablet Extended Release 24 Hr 50 mg PO DAILY@08 RF: 0 lisinopril 20 mg Tablet 20 mg PO DAILY@08 RF: 0 acetaminophen [Tylenol Extra Strength] 500 mg Tablet 500 - 1,000 mg PO BID PRN (Reason: Pain) RF: 0 albuterol sulfate 90 mcg/actuation HFA aerosol inhaler 2 puff INHALATION QID PRN (Reason: Shortness Of Breath) RF: 0 levothyroxine 50 mcg tablet 50 mcg PO DAILY@08 RF: 0 prednisone 10 mg tablet See Rx Instructions .ROUTE .COMPLEX Qty: 30 RF: 0 Discontinued azithromycin [Zithromax Z-George] 250 mg tablet See Rx Instructions .ROUTE .COMPLEX Qty: 6 RF: 0 Discharge Orders: Discharge Order (Routine); Ordered 10/02/20 Ordered By: Nayla Martinez Referrals: DatarAnkit MD [Physician] - 4-7 days (Please call Saturday to schedule a follow upp appointment.) Mirna Zavala APN [Primary Care Provider] - (Please call [facility] on Saturday and make an appt to see your primary care provider. ) Discharge Diet: Usual diet Discharge Activity: Increase activity as tolerated Patient Instructions: Pantoprazole (By mouth), Viral Pneumonia (GEN), Sepsis (GEN), Pneumonia Stoplight, Using Oxygen at Home Activity Restrictions/Additional Instructions: Return to hospital if respiratory status worsening again. Gradually increase activity. Monitor for fever. Take steroid with food. You were also prescribe a PPI to take while on steroids. Follow up with your PCP with in 1 week as well as with pulmonary medicine. Discharge Attestations Time Spent in Discharge Care*: greater than 30 min Specific Discharge Activities: educating patient, discussing with pcp/other providers, discussing with director case/social workers/dc planners, documenting/other paperwork and evaluating patient/reviewing data Status at Discharge: Cognitive status at discharge: cognitively intact , Behavioral status at discharge: cooperative , Overall status at discharge: patient is progressing back to baseline Quality Metrics Clinical Quality Measures During this hospital stay, did patient experience: None Coding Level of Care Code Acute Policy Issue Clerk for g Fwd Diagnoses Pneumonia due to COVID-19 virus U07.1; J12.89 Sepsis A41.9 Acute and chronic respiratory failure with hypoxia J96.21 ARDS (adult respiratory distress syndrome) J80
[2020-10-02 16:23] LABS: Glucose Point of Care 154 mg/dL (70-110)
[2020-10-03 19:28] LABS: Globulin 4.2 g/dL (1.3-4.6); Total Protein 7.3 g/dL (6.6-8.7)
== END 2020-10-02 16:58 | disposition home or self-care (01) | DRG 871 ==
LOC: ER 05:34 → MEDSURG 05:50
PROVIDERS: Admitting Provider Internal Medicine; Emergency Provider Emergency Medicine; PCP Nurse Practitioner Family; Visit Provider Hospitalist
DX: A41.9 Sepsis, unspecified organism (principal); U07.1 COVID-19; J12.82 Pneumonia due to coronavirus disease 2019; J96.21 Acute and chronic respiratory failure with hypoxia; G47.33 Obstructive sleep apnea (adult) (pediatric); F10.21 Alcohol dependence, in remission; E03.9 Hypothyroidism, unspecified; I10 Essential (primary) hypertension
CPT/HCPCS: 12345; 36415; 36416; 36600; 80051; 80053; 82330; 82803; 82805; 82962; 83605; 83615; 84145; 85025; 86140; 94640; 94660; 96372; 99283; J1650; J1815; J3535; J7512; J7611; J8540

== ENCOUNTER → 2020-10-13 10:38 | Outpatient (BNVA) | payer OTHER, SELFPAY | PROVIDERS: PCP Nurse Practitioner Family; Visit Provider Internal Medicine Pulmonary Disease | DX: Z20.822 Contact with and (suspected) exposure to COVID-19 (principal); R06.02 Shortness of breath | CPT/HCPCS: 87635 ==

== ENCOUNTER 2020-10-20 09:21 | Outpatient (CLI) | payer OTHER, SELFPAY ==
--- NOTE | 2020-10-20 10:24 | PFTS_ITS ---
Date of Study:10/20/20 Date of Dictation: MECHANICS: Forced vital capacity (FVC) is reduced. Forced expiratory volume in one second (FEV1) is reduced. FEV1/FVC is normal. FLOW VOLUME LOOP: Narrow. LUNG VOLUMES: Total lung capacity (TLC) is reduced. Residual volume (RV) is normal. DIFFUSING CAPACITY FOR CARBON MONOXIDE: Severely reduced. INTERPRETATION: The pulmonary function tests are consistent with severe airflow restriction. Lung volumes are consistent with restrictive lung disease. Gas exchange (DLCO) is severely reduced. MTDD
== END 2020-10-20 09:22 | disposition home or self-care (01) ==
LOC: RT 09:23
PROVIDERS: PCP Nurse Practitioner Family; Visit Provider Internal Medicine Pulmonary Disease
DX: R06.02 Shortness of breath (principal)
CPT/HCPCS: 94010; 94726; 94729

== ENCOUNTER 2023-11-26 19:18 | Emergency (ER) | payer OTHER, SELFPAY ==
[2023-11-26 19:24] VITALS: BP 106/75; PULSE 75; RESP 18; TEMP 36.5; O2SAT 99
--- NOTE | 2023-11-26 20:15 | W.ED.GENADLT ---
HPI - General Adult General: Chief complaint: General Medical Stated complaint: fatigue, possible uti Time Seen by Provider: 11/26/23 20:14 History of Present Illness: 58-year-old male presents the emergency department with his . The states that approximately 1:00 today he was his normal self and doing work at home she states when she returned at a little after 5 PM the patient was standing in the kitchen and appeared confused with slurred speech. She states she does not drink 10-12 beers daily and is normally functional without much difficulty. She states he seemed confused and had slow mentation. She states that her concern was that he was significantly intoxicated but when she checked the refrigerator he did not appear to have consumed more than 7 to 812 ounce beers. He is awake alert and oriented to person place time and situation. He does appear to have delayed thought processes and his mentation does appear to be slow. Review of Systems General: Reports: 10 or more systems reviewed and unremarkable except in HPI and below Neuro: Reports: Slurred speech present Psych: Reports: other (Heavy alcohol use); Denies: suicidal ideation or homicidal ideation [facility] ED PFSH: Medical History 2019 novel coronavirus–infected pneumonia (NCIP)#[id number];infected pneumonia (NCIP) Acute respiratory failure with hypoxia Hematuria Hypertension Hyponatremia Normal colonoscopy Sepsis Surgical History History of incision and drainage Gluteal abscess Family History Father Cancer Multiple myeloma Social History (Updated 02/07/21 @ 09:03 by Chandler Coe LPN) Smoking and tobacco/nicotine status: never used tobacco/nicotine Second hand smoke exposure: No Alcohol intake: current Alcohol intake frequency: holidays/special occasions only Alcohol type: beer Substance/Drug Use: never Caregiver/support person: No Lives independently: Yes Household members: spouse Housing: House Marital status: service: No Current occupational status: employed Pets and animals: Yes Do you think of yourself as: Straight/Heterosexual Current gender identity: Male Physical Exam Narrative: EXAM NARRATIVE: Constitutional: the patient appears well nourished and with normal development. Vital signs reviewed as documented. Slurred speech noted. Odor of alcohol noted about the patient HENMT: Normocephalic, atraumatic. External ears normal appearance without drainage. Nose without drainage, normal appearance. Mucus membranes moist. Neck is supple, No jugular venous distension, trachea is midline, no appreciable carotid bruits. No lymphadenopathy. No meningeal signs. Flexion, extension and lateral rotation is without pain. Eyes: Pupils are equal, round, reactive to light and accommodation. No scleral icterus. Extra-ocular movement are intact. Thorax is symmetrical and with equal rise and fall with respirations. Resp: Lungs are clear to auscultation. No wheezes, rales, crackles or ronchi at present. Cardio: Regular rate and rhythm. Positive S1, S2. No appreciable murmurs, rubs or gallops. GI: Abdominal exam reveals normal bowel sounds to all quadrants. No organomegaly. No obvious palpable masses noted. No hepatomegally appreciated. Soft, non-tender to palpation. Extremity: Extremities are non-edematous and both femoral and pedal pulses are 2+ and equal bilaterally. Moves all extremities well, sensation in all extremities. Neuro: Alert and oriented x4, person, place, time and situation. Cranial nerves II through XII are grossly intact, there is no focal neurological deficits that I can appreciate at present. Sensation intact to all extremities. 2-point discrimination intact. Light touch intact to all extremities. Motor strength in the upper and lower extremities are equal and bilateral 5/5. Psych: Cooperative, calm, normal thought process, appropriate judgment. Skin: No lesions, rashes. No gross abnormalities noted. Back: Symmetrical, no obvious deformity, No CVA tenderness Course ED course: NIH Stroke Scale/Score (NIHSS) on 11/26/2023 RESULT SUMMARY: 0 points NIH Stroke Scale INPUTS: 1A: Level of consciousness ?> 0 = Alert; keenly responsive 1B: Ask month and age ?> 0 = Both questions right 1C: 'Blink eyes' & 'squeeze hands' ?> 0 = Performs both tasks 2: Horizontal extraocular movements ?> 0 = Normal 3: Visual jack ?> 0 = No visual loss 4: Facial palsy ?> 0 = Normal symmetry 5A: Left arm motor drift ?> 0 = No drift for 10 seconds 5B: Right arm motor drift ?> 0 = No drift for 10 seconds 6A: Left leg motor drift ?> 0 = No drift for 5 seconds 6B: Right leg motor drift ?> 0 = No drift for 5 seconds 7: Limb Ataxia ?> 0 = No ataxia 8: Sensation ?> 0 = Normal; no sensory loss 9: Language/aphasia ?> 0 = Normal; no aphasia 10: Dysarthria ?> 0 = Normal 11: Extinction/inattention ?> 0 = No abnormality Vital Signs: Vital signs: Vital Signs Temperature 97.7 F 11/26/23 19:24 Pulse Rate 85 11/26/23 22:36 Respiratory Rate 18 11/26/23 22:36 Blood Pressure 95/55 11/26/23 22:36 Pulse Oximetry 96 11/26/23 22:36 Oxygen Delivery Me thod Room Air 11/26/23 19:24 MDM - General Adult Medical Decision Making Physical exam completed and documented I will obtain a CBC and CMP as well as an alcohol level given the patient's family members concern for the patient's continued and excessive alcohol use. I will obtain a CT scan of his abdomen pelvis to evaluate for pancreatitis. I will also obtain a CT scan of his head without contrast given the family's concern of his slowed mentation and slurred speech. Differential Diagnosis Electrolyte abnormality, alcohol intoxication, TIA, CVA, Medical Records I reviewed the patient's medical records. Lab Data I reviewed the patient's lab results. 11/26/23 20:07 11/26/23 20:[address] 11/26/23 20:49 IMPRESSION: No acute intracranial hemorrhage or evidence of acute territorial infarct. Abdomen/Pelvis CT 11/26/23 21:06 IMPRESSION: No acute findings. COMMENTS: Consistent with the [employer] [employer]'s Incidental Findings Committee white paper (J Am Shanice Radiol 2018): Any incidental renal lesion less than 1 cm or classified as too small to characterize, or any incidental cystic renal lesion characterized as simple-appearing, is likely benign. No follow-up imaging is recommended for these lesions per consensus recommendations based on imaging criteria. Laboratory Results WBC 8.64 10^3/uL (3.29-11.43) 11/26/23 20:07 RBC 3.56 10^6/uL (3.85-5.65) L 11/26/23 20:07 Hgb 13.10 g/dL (11.27-16.99) 11/26/23 20:07 Hct 38.5 % (37-53) 11/26/23 20:07 MCV 108.1 fl (82-101) H 11/26/23 20:07 MCH 36.8 pg (27-33) H 11/26/23 20:07 MCHC 34.0 g/dL (30-55) 11/26/23 20:07 RDW 12.9 % (12.1-15.1) 11/26/23 20:07 Plt Count 269 10^3/cmm (157-399) 11/26/23 20:07 MPV 8.6 fL (7.4-10.4) 11/26/23 20:07 Neut % (Auto) 51.0 % 11/26/23 20:07 Lymph % (Auto) 38.1 % 11/26/23 20:07 [place] % (Auto) 8.0 % 11/26/23 20:07 Eos % (Auto) 1.7 % 11/26/23 20:07 Baso % (Auto) 1.0 % 11/26/23 20:07 Neut # (Auto) 4.40 10^3/uL (1.8-7.7) 11/26/23 20:07 Lymph # (Auto) 3.3 10^3/uL (0.8-4.8) 11/26/23 20:07 [place] # (Auto) 0.7 10^3/uL (0.2-0.9) 11/26/23 20:07 Eos # (Auto) 0.2 10^3/uL (0.0-0.8) 11/26/23 20:07 Baso # (Auto) 0.1 10^3/uL (0.0-0.1) 11/26/23 20:07 Nucleated RBC % (auto) 0 % 11/26/23 20:07 Nucleated RBCs # 0.0 /100WBC 11/26/23 20:07 Sodium 133 mmol/L (136-145) L 11/26/23 20:07 Potassium 4.0 mmol/L (3.5-5.1) 11/26/23 20:07 Chloride 100 mmol/L (98-107) 11/26/23 20:07 Carbon Dioxide 22 mmol/L (22-29) 11/26/23 20:07 Anion Gap 15.0 (5-19) 11/26/23 20:07 BUN 8 mg/dL (6-20) 11/26/23 20:07 Creatinine 0.7 mg/dL (0.7-1.2) 11/26/23 20:07 GFR Calculation 115.8 mL/min (90-130) 11/26/23 20:07 Glucose 125 mg/dL (65-115) H 11/26/23 20:07 Calculated Osmolality 276 mOsm/kg (285-295) L 11/26/23 20:07 Calcium 8.5 mg/dL (8.5-10.5) 11/26/23 20:07 Total Bilirubin 0.5 mg/dL (0.15-1.2) 11/26/23 20:07 AST 105 U/L (0-40) H 11/26/23 20:07 ALT 40 U/L (0-41) 11/26/23 20:07 Alkaline Phosphatase 163 U/L (40-130) H 11/26/23 20:07 Ammonia 59 umol/L (16-60) 11/26/23 20:07 Total Protein 8.0 g/dL (6.6-8.7) 11/26/23 20:07 Albumin 3.3 g/dL (3.5-5.2) L 11/26/23 20:07 Globulin 4.7 g/dL (1.3-4.6) H 11/26/23 20:07 Lipase 290 U/L (13-60) H 11/26/23 20:07 Urine Color Light yellow (Yellow) 11/26/23 20:48 Urine Appearance Clear (CLEAR) 11/26/23 20:48 Urine pH 6 (5-7) 11/26/23 20:48 Ur Specific [place] 1.005 (1.005-1.030) 11/26/23 20:48 Urine Protein Neg (Negative) 11/26/23 20:48 Urine Glucose (UA) Norm (Normal) 11/26/23 20:48 Urine Ketones Negative (Negative) 11/26/23 20:48 Urine Blood Neg (Negative) 11/26/23 20:48 Urine Nitrate Negative (Negative) 11/26/23 20:48 Urine Bilirubin Neg (Negative) 11/26/23 20:48 Urine Urobilinogen Neg mg/dL (Negative) 11/26/23 20:48 Ur Leukocyte Esterase Negative (Negative) 11/26/23 20:48 Ethyl Alcohol 331 mg/dL (0-10) H* 11/26/23 20:07 All radiology interpretation(s) finalized by discharge Discharge Plan Discharge Patient Disposition: Home Clinical Impression: Elevated liver transaminase level Alcohol intoxication Qualifiers: Complication of substance-induced condition: uncomplicated Qualified Code(s): F10.920 - Alcohol use, unspecified with intoxication, uncomplicated Condition: Stable Prescriptions: No Action metoprolol succinate 50 mg Tablet Extended Release 24 Hr 50 mg PO DAILY@08 lisinopril 20 mg Tablet 20 mg PO DAILY@08 acetaminophen [Tylenol Extra Strength] 500 mg Tablet 500 - 1,000 mg PO BID PRN (Reason: Pain) albuterol sulfate 90 mcg/actuation HFA aerosol inhaler 2 puff INHALATION QID PRN (Reason: Shortness Of Breath) levothyroxine 50 mcg tablet 50 mcg PO DAILY@08 Protonix 40 mg tablet,delayed release (DR/EC) 40 mg PO DAILY Qty: 14 0RF Discharge Orders: Discharge ED (Routine); Ordered 11/26/23 Ordered By: Caleb Ware Referrals: Shelby Crain MD [Primary Care Provider] - Discharge Diet: Usual diet Discharge Activity: Resume usual activity Patient Instructions: Opioid Safety, Pain Management Activity Restrictions/Additional Instructions: Activity Restrictions/Additional Instructions: Thank you for choosing [facility] for your healthcare needs today. Please realize that you were seen in the Emergency Department and that we are providing you with an emergency medical screening exam and this may not be a complete and all inclusive of all the testing and or medical work-up that you may need to determine your ailment or severity of your illness. It is very important that you follow-up as instructed with your Primary care provider or Specialist for additional evaluation and to discuss your medical treatment plan. Coding Level of Care Code ED Renal Nurse for Azalea Davalos
[2023-11-26 20:16] LABS: Basophils # 0.1 10^3/uL (0.0-0.1); Eosinophils # 0.2 10^3/uL (0.0-0.8); Eosinophils % 1.7 %; Hematocrit 38.5 % (37-53); Lymphocytes # 3.3 10^3/uL (0.8-4.8); Lymphocytes % 38.1 %; Mean Corpuscular Hemoglobin 36.8 pg (27-33); Mean Corpuscular Volume 108.1 fl (82-101); Mean Platelet Volume 8.6 fL (7.4-10.4); Monocytes # 0.7 10^3/uL (0.2-0.9); Nucleated Red Blood Cells % 0 %; Platelet Count 269 10^3/cmm (157-399); Red Blood Count 3.56 10^6/uL (3.85-5.65); Red Cell Distribution Width 12.9 % (12.1-15.1); White Blood Count 8.64 10^3/uL (3.29-11.43)
[2023-11-26 20:33] LABS: Ammonia 59 umol/L (16-60)
[2023-11-26 20:46] VITALS: BP 121/83; PULSE 96; RESP 16; O2SAT 92
[2023-11-26 20:46] LABS: Alanine Aminotransferase 40 U/L (0-41); Albumin Level 3.3 g/dL (3.5-5.2); Alkaline Phosphatase 163 U/L (40-130); Aspartate Amino Transferase 105 U/L (0-40); Blood Urea Nitrogen 8 mg/dL (6-20); Calcium 8.5 mg/dL (8.5-10.5); Carbon Dioxide 22 mmol/L (22-29); Chloride 100 mmol/L (98-107); Creatinine Clr Calc Pharmacy 133.6105; Globulin 4.7 g/dL (1.3-4.6); Glomerular Filtration Rate 115.8 mL/min (90-130); Glucose 125 mg/dL (65-115); Lipase 290 U/L (13-60); Osmolality Calculated 276 mOsm/kg (285-295); Sodium 133 mmol/L (136-145); Total Bilirubin 0.5 mg/dL (0.15-1.2)
[2023-11-26 20:48] LABS: Alcohol Level 331 mg/dL (0-10)
--- NOTE | 2023-11-26 20:49 | CTR_ITS ---
PROCEDURE INFORMATION: Exam: CT Head Without Contrast Exam date and time: 11/26/2023 8:58 PM Age: 58 years old Clinical indication: Altered mental status/memory loss; Additional info: Ams/confusion TECHNIQUE: Imaging protocol: Computed tomography of the head without contrast. Radiation optimization: All CT scans at this facility use at least one of these dose optimization techniques: automated exposure control; mA and/or kV adjustment per patient size (includes targeted exams where dose is matched to clinical indication); or iterative reconstruction. COMPARISON: No relevant prior studies available. RADIATION DOSE METRICS: Total DLP (mGy-cm): 1095 FINDINGS: Brain: No acute intracranial hemorrhage. No territorial region of [place]-white dedifferentiation. No extra-axial collection. No mass effect or midline shift. Cerebral ventricles: No acute hydrocephalus. Paranasal sinuses: Visualized sinuses are well-aerated. No fluid levels. Mastoid air cells: Visualized mastoid air cells are well aerated. Orbital cavities: No acute abnormality. Bones/joints: No acute calvarial fracture. Soft tissues: No acute abnormality. CT/CT head wo con* [id number] IMPRESSION: No acute intracranial hemorrhage or evidence of acute territorial infarct.
[2023-11-26 20:51] LABS: Add Urine Microscopic? NO; Charge for UA Resulting for Rev
[2023-11-26 20:53] LABS: Bilirubin Urine Neg (Negative); Blood Urine Neg (Negative); Glucose Urine UA Norm (Normal); Ketones Urine Negative (Negative); Leukocyte Esterase Urine Negative (Negative); Nitrate Urine Negative (Negative); Protein Urine Neg (Negative); Specific Gravity, Urine 1.005 (1.005-1.030); Urine Appearance Clear (CLEAR); Urine Color Light yellow (Yellow); Urobilinogen Urine Neg (Negative); pH Urine 6 (5-7)
--- NOTE | 2023-11-26 21:06 | CTR_ITS ---
PROCEDURE INFORMATION: Exam: CT Abdomen And Pelvis With Contrast Exam date and time: 11/26/2023 9:36 PM Age: 58 years old Clinical indication: Abdominal pain; Epigastric; Additional info: Epigastric pain TECHNIQUE: Imaging protocol: Computed tomography of the abdomen and pelvis with contrast. Radiation optimization: All CT scans at this facility use at least one of these dose optimization techniques: automated exposure control; mA and/or kV adjustment per patient size (includes targeted exams where dose is matched to clinical indication); or iterative reconstruction. Contrast material: OMNI 350; Contrast volume: 100 ml; Contrast route: INTRAVENOUS (IV); COMPARISON: [place] liver [id number] 11/04/2023 10:27 AM RADIATION DOSE METRICS: Total DLP (mGy-cm): 800.48 FINDINGS: Lungs: Mild centrilobular emphysema. Liver: Liver is unremarkable. Gallbladder and bile ducts: No calcified gallstones. No gallbladder wall thickening or pericholecystic fluid. No biliary ductal dilation. Pancreas: Pancreas is unremarkable. No main duct dilation. Spleen: Spleen is unremarkable. Adrenal glands: 1.7 cm right adrenal myelolipoma, unchanged. Kidneys and ureters: Punctate nonobstructing left renal calculus. Subcentimeter too small to characterize right renal hypodensity. No hydroureteronephrosis. Stomach and bowel: Colonic diverticulosis without CT findings of acute diverticulitis. Appendix: No evidence of appendicitis. Intraperitoneal space: Unremarkable. No free air. No significant fluid collection. Vasculature: No aortic aneurysm. Mild atherosclerosis. Lymph nodes: No enlarged lymph nodes. Urinary bladder: Unremarkable as visualized. Reproductive: Unremarkable as visualized. Bones/joints: No acute fracture. Bilateral hip osteoarthritis. Thoracolumbar spondylosis. Soft tissues: Unremarkable. CT/CT abdomen pelvis w con* [id number] IMPRESSION: No acute findings. COMMENTS: Consistent with the [employer]'s Incidental Findings Committee white paper (J Am Shanice Radiol 2018): Any incidental renal lesion less than 1 cm or classified as too small to characterize, or any incidental cystic renal lesion characterized as simple-appearing, is likely benign. No follow-up imaging is recommended for these lesions per consensus recommendations based on imaging criteria.
[2023-11-26] MEDS: iohexol 350 mg/mL 500 mL Btl (per mL) IV (21:34)
[2023-11-26 22:36] VITALS: BP 95/55; PULSE 85; RESP 18; O2SAT 96
== END 2023-11-26 22:55 | disposition home or self-care (01) ==
PROVIDERS: Emergency Medicine; Emergency Provider Internal Medicine; PCP Family Medicine
DX: F10.920 Alcohol use, unspecified with intoxication, uncomplicated (principal); R74.01 Elevation of levels of liver transaminase levels; Y90.8 Blood alcohol level of 240 mg/100 ml or more; I10 Essential (primary) hypertension
CPT/HCPCS: 36415; 70450; 74177; 80053; 80307; 81003; 82140; 83690; 85025; 99285; Q9967

== ENCOUNTER 2025-08-03 13:24 | Outpatient (CLI) | payer OTHER, SELFPAY | END 2025-08-03 13:25 | disposition home or self-care (01) | LOC: SLEEP 13:26 | PROVIDERS: PCP Family Medicine; Referring Provider Family Medicine; Visit Provider Internal Medicine Pulmonary Disease | DX: G47.33 Obstructive sleep apnea (adult) (pediatric) (principal); G47.36 Sleep related hypoventilation in conditions classified elsewhere | CPT/HCPCS: G0399 ==